=== PATIENT | male | born 1950 | race Caucasian/White ===

== ENCOUNTER 2023-09-15 07:58 | Outpatient (OUT) | payer MEDICARE, OTHER, SELFPAY ==
[2023-09-15 08:09] LABS: Basophils Absolute Auto 0.1 10^3/uL (0.0-0.1); Basophils Percent Auto 0.6 % (0.2-2.0); Eosinophils Absolute Auto 0.2 10^3/uL (0.0-0.7); Eosinophils Percent Auto 2.1 % (0.9-7.0); Hematocrit 44.8 % (42.0-54.0); Hemoglobin 15.4 g/dL (14.0-18.0); Immature Granulocytes Abs Auto 0.01 10^3/uL (0.00-0.03); Immature Granulocytes Pct Auto 0.1 % (0.0-0.5); Lymphocytes Absolute Auto 2.5 10^3/uL (1.2-3.8); Lymphocytes Percent Auto 31.8 % (20.5-60.0); Mean Corpuscular HGB Conc 34.4 g/dL (29.9-35.2); Mean Corpuscular Hemoglobin 30.8 pg (25.9-34.0); Mean Corpuscular Volume 89.6 fL (80.0-94.0); Mean Platelet Volume 8.8 fL (9.5-13.5); Monocytes Absolute Auto 0.7 10^3/uL (0.3-0.8); Monocytes Percent Auto 8.5 % (1.7-12.0); Neutrophils Absolute Auto 4.4 10^3/uL (1.4-6.5); Neutrophils Percent Auto 56.9 % (43.0-75.0); Platelet Count 286 10^3/uL (150-450); Red Cell Distribution Width 12.8 % (11.0-15.0); White Blood Count 7.7 10^3/uL (4.0-11.0)
[2023-09-15 08:53] LABS: Alanine Aminotransferase 28 U/L (16-63); Albumin Globulin Ratio 0.9; Albumin Level 3.5 g/dL (3.4-5.0); Alkaline Phosphatase 80 U/L (46-116); Anion Gap 13.2; Aspartate Amino Transferase 20 U/L (15-37); BUN Creatinine Ratio 15.1; Bilirubin Total 0.6 mg/dL (0.2-1.0); Calcium 8.5 mg/dL (8.5-10.1); Carbon Dioxide 27.9 mmol/L (21.0-32.0); Chloride 104 mmol/L (98-107); Chol HDL Ratio 2.9; Cholesterol 154 mg/dL (<=200); Estimated GFR (African America >60 (>=60); Estimated GFR (Non-African Ame 56 (>=60); Globulin 3.7 g/dL; Glucose 99 mg/dL (74-106); HDL Cholesterol 54 mg/dL (40-60); LDL Cholesterol Calculated 90.8 mg/dL; Potassium 4.1 mmol/L (3.5-5.1); Sodium 141 mmol/L (136-145); Thyroid Stimulating Hormone 1.673 uIU/mL (0.358-3.740); Total Protein 7.2 g/dL (6.4-8.2); Triglycerides 46 mg/dL (<=150); VLDL CHOLESTEROL 9.2 mg/dL
[2023-09-15 09:11] LABS: Prostate Specific Antigen Dx 13.86 ng/mL (<=4.00)
== END 2023-09-15 07:59 | disposition home or self-care (01) ==
LOC: LAB 07:58
PROVIDERS: PCP Internal Medicine; Visit Provider Internal Medicine
DX: R73.01 Impaired fasting glucose (principal); I10 Essential (primary) hypertension; R97.20 Elevated prostate specific antigen [PSA]; Z51.81 Encounter for therapeutic drug level monitoring
CPT/HCPCS: 36415; 80053; 80061; 84153; 84443; 85025

== ENCOUNTER 2023-11-27 10:51 | Outpatient (OUT) | payer MEDICARE, OTHER, SELFPAY ==
[2023-11-27 11:51] LABS: Prostate Specific Antigen Dx 12.27 ng/mL (<=4.00)
== END 2023-11-27 10:52 | disposition home or self-care (01) ==
PROVIDERS: PCP Internal Medicine; Visit Provider Urology
DX: N40.1 Benign prostatic hyperplasia with lower urinary tract symptoms (principal); R97.20 Elevated prostate specific antigen [PSA]; N41.1 Chronic prostatitis
CPT/HCPCS: 36415; 84153

== ENCOUNTER 2024-03-10 06:34 | Outpatient (OUT) | payer MEDICARE, OTHER, SELFPAY ==
--- OUTSIDE RECORDS SUMMARY | 2024-03-10 06:36 | XMS_ITS | CCD ---
Author Organization [facility] Care Team Providers Care Last Ironer Name Role Phone BRIAN TAPIA Unavailable Unavailable ANAYELI GREER Primary Care Physician [phone] MD Brian Tapia Attending Provider DO Zoey Latham Primary Care Provider Zoey Latham Primary Care Unavailable Brian Tapia Attending Unavailable Brian Tapia Admitting Unavailable NOA, DR GREER Admitting Unavailable NOA, DR GREER Attending Unavailable NOA, DR GREER Primary Care Unavailable NOA, DR GREER Consulting Unavailable NOA, DR GREER Admitting Unavailable NOA, DR GREER Attending Unavailable NOA, DR GREER Primary Care Unavailable NOA, DR GREER Consulting Unavailable MARVEL ., DR RICHTER Admitting Unavailable MARVEL ., DR RICHTER Attending Unavailable NOA, DR GREER Primary Care Unavailable MARVEL ., DR RICHTER Consulting Unavailable NOA, DR GREER Admitting Unavailable NOA, DR GREER Attending Unavailable NOA, DR GREER Primary Care Unavailable NOA, DR GREER Consulting Unavailable NOA, ZOEY Henry Referring Unavailable ZOEY LATHAM Attending Zoey Hope DO Unavailable Zoey Latham DO Primary Care Provider [phone] Brian TAPIA Attending Unavailable Brian TAPIA Attending Zoey Pierce Attending Unavailable Medications Current Medications Medication Drug Class(es) Dates Sig (Normalized) Sig (Original) acetaminophen 325 mg / HYDROcodone bitartrate 7.5 mg oral tablet (2 sources) Opioid Agonist Start: 10-29-2022 take 1 tablet by mouth once, then take 1 tablet by mouth every hour [place] 325 mg-7.5 mg oral tablet 1 tab(s), Oral, Once, 1 tab(s), Refill(s) 0, Take 1 hour prior to procedure. Don't drive or operate machinery while taking this medication., [facility]/pharmacy #[id number], 182, cm, 08/01/22 11:50:00 EDT, Height/Length Dosing, 93.2, kg, 08/01/22 11:50:00 EDT, We... Start Date: 10/29/22 Status: Ordered amLODIPine 10 mg oral tablet (2 sources) Dihydropyridine Calcium Channel Osbaldo Start: 12-04-2023 amLODIPine 10 mg Tab Refills(s) 0 Start Date: 12/04/23 Status: Ordered Start: 11-19-2023 take 1 tablet by carl th once daily amLODIPine (Norvasc) 10 MG tablet Indications: Essential (primary) hypertension (CMS/HCC) TAKE 1 TABLET BY MOUTH ONCE EVERY NIGHT 90 tablet 3 11/19/2023 Active aspirin 81 mg oral tablet (6 sources) Platelet Aggregation Inhibitor, Nonsteroidal Anti-inflammatory Drug Start: 03-23-2020 take 81 mg by mouth once daily aspirin 81 mg, Oral, Daily, Refills(s) 0 Start Date: 03/23/20 Status: Ordered aspirin 81 MG EC tablet Take by mouth Daily. 0 Active Maxidex (5 sources) Corticosteroid Start: 10-14-2019 Maxidex Eye-Shahid th, QID, Refill(s) 0 Start Date: 10/14/19 Status: Ordered diclofenac sodium 0.01 mg/mg topical gel (1 source) Nonsteroidal Anti-inflammatory Drug Start: 08-17-2022 diclofenac sodium 1 % gel as directed Externally up to 4 times per day for 14 day(s) 0 08/17/2022 Active hydroCHLOROthiazide 25 mg / triamterene 37.5 mg oral tablet (4 sources) Potassium-sparing Diuretic, Thiazide Diuretic Start: 06-28-2021 hydrochlorothiazi de-triamterene 25 mg-37.5 mg Tab 1 tab(s), Daily, Refill(s) 0 Start Date: 06/28/21 Status: Ordered Metoprolol (2 sources) beta-Adrenergic Osbaldo Start: 12-04-2023 metoprolol Refills(s) 0 Start Date: 12/04/23 Status: Ordered take 1 tablet by mouth once sg y metoprolol succinate XL (Toprol-XL) 25 MG 24 hr tablet Take by mouth Daily. 0 Active simvastatin 40 mg oral tablet (6 sources) HMG-CoA Reductase Inhibitor Start: 08-24-2023 take 1 tablet by mouth once daily simvastatin (Zocor) 40 MG tablet Indications: Pure hypercholesterolemia, unspecified (CMS/HCC) TAKE 1 TABLET BY MOUTH EVERY NIGHT 90 tablet 3 08/24/2023 Active Start: 10-14-2019 simvastatin Or al, Refills(s) 0 Start Date: 10/14/19 Status: Ordered tamsulosin hydrochloride 0.4 mg oral capsule (6 sources) alpha-Adrenergic Osbaldo Start: 08-01-2022 take 1 capsule by mouth every other day Flomax 0.4 mg Cap 0.4 mg = 1 cap(s), Oral, Every other day, # 45 cap(s), Refills(s) 11, Pharmacy: [facility]/pharmacy #[id number], 182, cm, 08/01/22 11:50:00 EDT, Height/Length Dosing, 93.2, kg, 08/01/22 11:50:00 EDT, Weight Dosing Start Date: 08/01/22 Status: Ordered take [address] [facility] every twenty-four hours in the morning tamsulosin (Flomax) 0.4 MG 24 hr capsule Take 1 capsule by mouth in the morning. 0 Active Problems Problem Classification Problem Date Documented Da te Episodic/Chronic Chronic kidney disease (1 source) Chronic kidney disease stage 3A ; Translations: [Stage 3a chronic kidney disease (HCC)] Onset: 09-09-2023 09-09-2023 Chronic Chronic kidney disease (1 source) Chronic kidney disease; Translations: [CHRONIC KIDNEY DISEASE STAGE 3A] Onset: 03-07-2023 Diabetes mellitus without complication (2 sources) Prediabetes; Translations: [Impaired fasting glucose] Onset: 09-08-2022 Episodic Disorders of lipid metabolism (11 sources) Hypercholesterolemi a; Translations: [Pure hypercholesterolemi a, unspecified] Onset: 05-07-2022 04-10-2019 Chronic Essential hypertension (10 sources) Hypertensive disorder; Translations: [Essential (primary) hypertension] Onset: 09-05-2022 04-10-2019 Chronic Hyperplasia of prostate (13 sources) Benign prostatic hypertrophy with outflow obstruction; Translations: [Benign prostatic hyperplasia with lower urinary tract symptoms] Onset: 07-03-2022 Chronic Hypertension with complications and secondary hypertension (1 source) Hypertensive chronic kidney disease with stage 1 through stage 4 chronic kidney disease, or unspecified chronic kidney disease; Translations: [HTN CKD W/STAGE 1-4 CKD/UNS CKD] Onset: 03-07-2023 Chronic Inflammatory conditions of male genital organs (4 sources) Chronic prostatitis; Translations: [Chronic prostatitis] Onset: 12-01-2022 Chronic Other nutritional; endocrine; and metabolic disorders (5 sources) Body mass index 25-29 - overweight 03-09-2020 Episodic Other nutritional; endocrine; and metabolic disorders (1 source) Overweight in adulthood with body mass index of 25 or more but less than 30; Translations: [Body mass index (BMI) 28.0-28.9, adult] Onset: 09-23-2023 09-23-2023 Episodic Other screening for suspected conditions (not mental disorders or infectious disease) (11 sources) Raised prostate specific antigen; Translations: [Elevated prostate specific antigen [PSA]] Onset: 08-01-2022 Episodic Unclassified (1 source) Unknown / UNK(Unknown) Onset: 10-18-2018 Results Test Name Value Interpretation Reference Range Facility Ambulatory Visit Summaryon 0 12-04-2023 Ambulatory Visit Summary AGUS ORTIZ :1950 Visit Date:12/04/2023 Ambulatory Visit Instructions Your Diagnosis Elevated PSA BPH with urinary obstruction Chronic prostatitis Your Care Team Attending Physician - Brian TAPIA MD Primary Care Physician - ANAYELI GREER MD This Is Your Medications List tamsulosin (Flomax 0.4 mg Cap) Contact prescribing physician if questions or concerns amlodipine (amLODIPine 10 mg Tab) aspirin dexamethasone ophthalmic (Maxidex) metoprolol simvastatin Procedures Performed Transrectal biopsy of prostate using ultrasound guidance (11/11/2022), Transrectal biopsy of prostate using ultrasound guidance (04/03/2020), Transurethral water vapor ablation of prostate (10/13/2017), TRUS (transrectal ultrasound) guided cryoablation of prostate (07/08/2011), Hip replacement, Jaw and temporomandibular joint operations. Discharge Vitals Heart Rate (Peripheral) 80 Respiratory Rate 16 Blood Pressure 132/84 Height 183 cm Height 72 in Weight 91 kg Weight 200.2 lb BMI 27.17 What to do next You Need to Schedule the Following Appointments Follow Up with MARVEL ELLIS, LINA Hutchins When: In 1 year Comments: w/ PSA Where: [facility] [address], [place] [address] [phone] Medications What How Much When Instructions Unchanged tamsulosin (Flomax 0.4 mg Cap) 1 Capsules By Mouth Every other day Unchanged amlodipine (amLODIPine 10 mg Tab) Contact prescribing physician if questions or concerns Unchanged aspirin 81 Milligram By Mouth Every day Contact prescribing physician if questions or concerns Unchanged dexamethasone ophthalmic (Maxidex) Both eyes 4 times a day Contact prescribing physician if questions or concerns Unchanged metoprolol Contact prescribing physician if questions or concerns Unchanged simvastatin By Mouth Contact prescribing physician if questions or concerns Allergies No Known Allergies Problems Ongoing - Any problem that you are currently receiving treatment for. BMI 29.0-29.9,adult BPH with urinary obstruction Chronic prostatitis Elevated PSA Hypercholesteremia Hypertension Patient Survey You may receive a survey via text or e-mail asking about your office visit. Please share your experience with us by completing your survey. We appreciate your feedback and thank you for choosing us for your care. Education Materials Prostate Cancer Screening Prostate cancer screening is testing that is done to check for the presence of prostate cancer in men. The prostate gland is a walnut-sized gland that is located below the bladder and in front of the rectum in males. The function of the prostate is to add fluid to semen during ejaculation. Prostate cancer is one of the most common types of cancer in men. Who should have prostate cancer screening? Screening recommendations vary based on age and other risk factors, as well as between the professional organizations who make the recommendations. In general, screening is recommended if: ? You are age 50 to 70 and have an average risk for prostate cancer. You should talk with your health care provider about your need for screening and how often screening should be done. Because most prostate cancers are slow growing and will not cause , screening in this age group is generally reserved for men who have a 10- to 15-year life expectancy. ? You are younger than age 50, and you have these risk factors: ? Having a father, brother, or uncle who has been diagnosed with prostate cancer. The risk is higher if your family member's cancer occurred at an early age or if you have multiple family members with prostate cancer at an early age. ? Being a male who is Black or is of [place] or sub-Saharan descent. In general, screening is not recommended if: ? You are younger than age 40. ? You are between the ages of 40 and 49 and you have no risk factors. ? You are 70 years of age or older. At this age, the risks that screening can cause are greater than the benefits that it may provide. If you are at high risk for prostate cancer, your health care provider may recommend that you have screenings more often or that you start screening at a younger age. How is screening for prostate cancer done? The recommended prostate cancer screening test is a blood test called the prostate-specific antigen (PSA) test. PSA is a protein that is made in the prostate. As you age, your prostate naturally produces more PSA. Abnormally high PSA levels may be caused by: ? Prostate cancer. ? An enlarged prostate that is not caused by cancer (benign prostatic hyperplasia, or BPH). This condition is very common in older men. ? A prostate gland infection (prostatitis) or urinary tract infection. ? Certain medicines such as male hormones (like testosterone) or other medicines that raise testosterone levels. A rectal exam ma (more content not included)... Normal [facility] Patient Educationon 12-04-19 24 Patient Education Oncology Prostate Cancer Screening Prostate cancer screening is testing that is done to check for the presence of prostate cancer in men. The prostate gland is a walnut-sized gland that is located below the bladder and in front of the rectum in males. The function of the prostate is to add fluid to semen during ejaculation. Prostate cancer is one of the most common types of cancer in men. Who should have prostate cancer screening? Screening recommendations vary based on age and other risk factors, as well as between the professional organizations who make the recommendations. In general, screening is recommended if: ? You are age 50 to 70 and have an average risk for prostate cancer. You should talk with your health care provider about your need for screening and how often screening should be done. Because most prostate cancers are slow growing and will not cause , screening in this age group is generally reserved for men who have a 10- to 15-year life expectancy. ? You are younger than age 50, and you have these risk factors: ? Having a father, brother, or uncle who has been diagnosed with prostate cancer. The risk is higher if your family member's cancer occurred at an early age or if you have multiple family members with prostate cancer at an early age. ? Being a male who is Black or is of Sun[place] or sub-Saharan descent. In general, screening is not recommended if: ? You are younger than age 40. ? You are between the ages of 40 and 49 and you have no risk factors. ? You are 70 years of age or older. At this age, the risks that screening can cause are greater than the benefits that it may provide. If you are at high risk for prostate cancer, your health care provider may recommend that you have screenings more often or that you start screening at a younger age. How is screening for prostate cancer done? The recommended prostate cancer screening test is a blood test called the prostate-specific antigen (PSA) test. PSA is a protein that is made in the prostate. As you age, your prostate naturally produces more PSA. Abnormally high PSA levels may be caused by: ? Prostate cancer. ? An enlarged prostate that is not caused by cancer (benign prostatic hyperplasia, or BPH). This condition is very common in older men. ? A prostate gland infection (prostatitis) or urinary tract infection. ? Certain medicines such as male hormones (like testosterone) or other medicines that raise testosterone levels. A rectal exam may be done as part of prostate cancer screening to help provide information about the size of your prostate gland. When a rectal exam is performed, it should be done after the PSA level is drawn to avoid any effect on the results. Depending on the PSA results, you may need more tests, such as: ? A physical exam to check the size of your prostate gland, if not done as part of screening. ? Blood and imaging tests. ? A procedure to remove tissue samples from your prostate gland for testing (biopsy). This is the only way to know for certain if you have prostate cancer. What are the benefits of prostate cancer screening? ? Screening can help to identify cancer at an early stage, before symptoms start and when the cancer can be treated more easily. ? There is a small chance that screening may lower your risk of dying from prostate cancer. The chance is small because prostate cancer is a slow-growing cancer, and most men with prostate cancer from a different cause. What are the risks of prostate cancer screening? The main risk of prostate cancer screening is diagnosing and treating prostate cancer that would never have caused any symptoms or problems. This is called overdiagnosisand overtreatment. PSA screening cannot tell you if your PSA is high due to cancer or a different cause. A prostate biopsy is the only procedure to diagnose prostate cancer. Even the results of a biopsy may not tell you if your cancer needs to be treated. Slow-growing prostate cancer may not need any treatment other than monitoring, so diagnosing and treating it may cause unnecessary stress or other side effects. Questions to ask your health care provider ? When should I start prostate cancer screening? ? What is my risk for prostate cancer? ? How often do I need screening? ? What type of screening tests do I need? ? How do I get my test results? ? What do my results mean? ? Do I need treatment? Where to find more information ? The [place] [employer]: www.cancer.org ? [employer]: www.auanet.org Contact a health care provider if: ? You have difficulty urinating. ? You have pain when you urinate or ejaculate. ? You have blood in your urine or semen. ? You have pain in your back or in the area of your prostate. Summary ? Prostate cancer is a common type of cancer in men. The prostate gland is located below the bladder and in front of the rectum. This gland adds flu (more content not included)... 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 PSA: 11/27/23 is 12.27 Tamsulosin 0.4mg QOD Denies all urinary complaints at this time. Attributes to previous Rezum procedure. History of Present Illness Tests reviewed: reviewed UA, PSA I have reviewed the previous health record information and history for this patient from Dr. Tapia. I have reviewed and verified the staff HPI to be accurate for this encounter. Review of Systems PHQ Score Initial Depression Screen Score: 0 SCORE ROS - Provider Constitutional: denies weight loss, denies hot flashes. Eyes: denies eye problems. Gastrointestinal: denies nausea, denies vomiting. Cardiovascular: denies chest pain or angina. Integumentary: no dryness Musculoskeletal: denies musculoskeletal symptoms. ENMT: denies otolaryngeal symptoms. Respiratory: no shortness of breath. Heme/Lymph: denies easy bleeding tendency, denies easy bruising tendency. Psychiatric: no confusion, no anxiety. Genitourinary: See HPI. Physical Exam Vitals & Measurements HR: 80(Peripheral) RR: 16 BP: 132/84 HT: 72 in HT: 183 cm WT: 91 kg WT: 200.2 lb BMI: 27.17 General Appearance: alert, no distress, well nourished, well developed male. Genitourinary: normal scrotum, normal testes, normal urethra, normal epididymis, normal vas deferens/spermatic cord. Flank Pain: none. Bladder: nonpalpable. Prostate: normal prostate, estimated weight 50 gms, no hard nodule observed. Assessment/Plan 1. Elevated PSA (R97.20: Elevated prostate specific antigen [PSA]) PSA 02/2020 - 17.9 06/19/21 - 10.03 07/03/22 - 12.97 11/27/23 - 12.27 Prostate MRI 09/2018 - PI-RADS 2. Prostate MRI 08/13/22 [facility] [place] - No evidence of prostate malignancy. Prostate volume 99mL. TRUS/bx 01/02/17, 04/03/20, and 11/11/22 - all neg JACOBO today: 50g, benign Discussed PSA level w/ pt, has decreased from prior. Re-discussed negative malignancy workup despite PSA being elevated. Advised pt this is likely due to chronic subclinical prostatitis because of his large prostate. Discussed there are medications that lower the PSA, such as Finasteride, but are only beneficial if having bothersome urinary sxs. -F/u in 1 yr w/ PSA 2. BPH with urinary obstruction (N40.1: Benign prostatic hyperplasia with lower urinary tract symptoms) S/p Rezum 09/2017. UA today negative for blood and infection. Taking Tamsulosin 0.4mg qod. Good stream. Feels he empties completely. Denies any difficulty with voiding. -Cont Tamsulosin wo changes 3. Chronic prostatitis (N41.1: Chronic prostatitis) Asymptomatic. -Cont sx monitoring Follow-up With When Contact Information MARVEL ELLIS, LINA Hutchins In 1 year [facility] [address] [place] [address]- [phone] Additional Instructions: w/ PSA Patient Education Prostate Cancer Screening I, Taryn Casarze, personally scribed for Dr. Tapia on 12/04/2023 09:24:43. . Documentation recorded by the scribe, Taryn Casarez, accurately reflects the services(s) I performed and decisions made by me. Authenticated by Dr. Tapia on 12/04/2023 09:26:27. Problem List/Past Medical History Ongoing BMI 29.0-29.9,adult BPH with urinary obstruction Chronic prostatitis Elevated PSA Hypercholesteremia Hypertension Historical No qualifying data Procedure/Surgical History Transrectal biopsy of prostate using ultrasound guidance (11/11/2022), Transrectal biopsy of prostate using ultrasound guidance (04/03/2020), Transurethral water vapor ablation of prostate (10/13/2017), TRUS (transrectal ultrasound) guided cryoablation of prostate (07/08/2011), Hip replacement, Jaw and temporomandibular joint operations. Medications amLODIPine 10 mg Tab aspirin, 81 mg, Oral, Daily Flomax 0.4 mg Cap, 0.4 mg= 1 cap(s), Oral, Every other day, 11 refills Maxidex, Eye-Both, QID metoprolol simvastatin, Oral Allergies No Known Allergies Social History Alcohol - Denies Alcohol Use, 10/14/2019 Substance Abuse - Denies Substance Abuse, 08/01/2022 Tobacco - Denies Tobacco Use, 10/14/2019 Former smoker, quit more than 30 days ago Tobacco Use:. Never Smokeless Tobacco Use:. Cigarettes, Household tobacco concerns: No. Yes, 12/04/2023 Family History Diabetes mellitus type 2: Father. Immunizations Vaccine Date Status Comments influenza virus vaccine, inactivated 08/01/2023 Recorded influenza virus vaccine, inactivated 08/10/2022 Recorded SARS-CoV-2 (COVID-19) [id number] 08/10/2022 Recorded influenza virus vaccine, inactivated 08/02/2021 Recorded SARS-CoV-2 (COVID-19) mRNA BNT-162b2 vax 08/02/2021 Recorded 2023-12-04: TPV70 SARS-CoV-2 (COVID-19) Ad26 vaccine 02/2021 Recorded unable to give exact dates SARS-CoV-2 (COVID-19) mRNA BNT-162b2 vax 12/21/2020 Recorded 2023-12-04: TPV70 SARS-CoV-2 (COVID-19) mRNA BNT-162b2 vax 11/30 (more content not included)... Normal [facility] Comment on above: Result Comment: Elec tronically Signed By: Brian TAPIA MD\.br\Date and Time Signed: 12/04/23 09:26 EST\.br\Electronically Co-Signed By: Taryn Casarez\.br\Date and Time Co-Signed: 12/04/23 09:24 EST Lab Reportson 11-30-2023 Lab Reports [id number] Normal [facility] MHPT PSA, DIAGNOSTICon 11-27 Interpretation and review of laboratory results Abnormal [facility] PROSTATE SPECIFIC ANTIGEN DX 12.27 ng/mL High NINF - 4.00 ng/mL [facility] 09-16-2023 Consent [id number]#1.00TIFF Normal [facility] Consent [id number]#[id number] Normal [facility] GLYCOHEMOGLOBIN A1Con 2022 ADA RECOMMENDATION SEE BELOW Normal [facility] Comment on above: Result Comment: ADA RECOMMENDED LIMIT 4.0 - 6.0 ADA THERAPEUTIC TARGET < 7.0 ACTION SUGGESTED > 7.0 Performed By: #### A 1C #### [facility] [address] [address] [address] Khari Meadows Glucose [Mass/Vol] 108 mg/dL Normal [facility] Comment on above: Performed By: #### A 1C #### [facility] [address] [address] [address] Khari Meadows HbA1c (Bld) [Mass fraction] 5.4 % Normal 4.5-6.2 [facility] Comment on above: Performed By: #### A 1C #### [facility] [address] [address] [address] Khari Meadows MICROALBUMIN, RAND URon 05-0 mALB <1.3 Normal <=30.0 [facility] Comment on above: Performed By: #### M ALBR #### [facility] [address] [address] [address] Khari Meadows PROF CHEM 8 (BAS METB)on Anion gap [Moles/Vol] 10.9 mmol/L Normal [facility] Comment on above: Performed By: #### B MP #### [facility] [address] [address] [address] Khari Meadows Calcium [Mass/Vol] 9.0 mg/dL Normal 8.5-10.1 [facility] Comment on above: Performed By: #### B MP #### [facility] [address] [place] [address] Dr. Khari Meadows Chloride [Moles/Vol] 105 mmol/L Normal 98-107 [facility] Comment on above: Performed By: #### B MP #### [facility] [address] [address] [address] Khari Meadows CO2 [Moles/Vol] 27.7 mmol/L Normal 21.0-32.0 [facility] Comment on above: Performed By: #### B MP #### [facility] [address] [place] [address] Dr. Khari Meadows Creatinine [Mass/Vol] 1.24 mg/dL Normal 0.70-1.30 [facility] [facility] Comment on above: Performed By: #### B MP #### [facility] [address] [address] [address] Khari Meadows EGFR-AF HAITIAN >60 Normal >=60 [facility] Comment on above: Performed By: #### B MP #### [facility] [address] [place] [address] Dr. Khari Meadows EGFR-NON AF HAITIAN 57 mL/min/1.73m2 Critically low >=60 [facility] Comment on above: Performed By: #### B MP #### [facility] [address] [address] [address] Khari Meadows Glucose [Mass/Vol] 95 mg/dL Normal 74-106 [facility] Comment on above: Performed By: #### B MP #### [facility] [address] [address] [address] Khari Meadows Potassium [Moles/Vol] 3.6 mmol/L Normal 3.5-5.1 [facility] Comment on above: Performed By: #### B MP #### [facility] [address] [place] [address] Dr. Khari Meadows Sodium [Moles/Vol] 140 mmol/L Normal 136-145 [facility] Comment on above: Performed By: #### B MP #### [facility] [address] [place] [address] Dr. Khari Meadows Urea nitrogen [Mass/Vol] 26.0 mg/dL Critically high 7.0-18.0 [facility] Comment on above: Performed By: #### B MP #### [facility] [address] [place] [address] Dr. Khari Meadows Urea nitrogen/Creatinine [Mass ratio] 21.0 mg/mg Normal [facility] Comment on above: Performed By: #### B MP #### [facility] [address] [place] [address] Dr. Khari Meadows UA RANDOMon 03-03-2023 Bilirubin Ql (U) Negative Normal NEGATIVE [facility] Comment on above: Performed By: #### U A #### [facility] [address] [place] [address] Dr. Khari Meadows Clarity (U) CLEAR Normal CLEAR [facility] Comment on above: Performed By: #### U A #### [facility] [address] [place] [address] Dr. Khari Meadows Color (U) LT. YELLOW Normal YELLOW [facility] Comment on above: Performed By: #### U A #### [facility] [address] [place] [address] Dr. Khari Meadows Glucose Ql (U) Negative Normal NEGATIVE [facility] Comment on above: Performed By: #### U A #### [facility] [address] [place] [address] Dr. Khari Meadows Hemoglobin Ql (U) Negative Normal NEGATIVE [facility] Comment on above: Performed By: #### U A #### [facility] [address] [place] [address] Dr. Khari Meadows Ketones Ql (U) Negative Normal NEGATIVE [facility] Comment on above: Performed By: #### U A #### [facility] [address] [place] [address] Dr. Khari Meadows LEUKOCYTES Negative Normal NEGATIVE [facility] Comment on above: Performed By: #### U A #### [facility] [address] [place] [address] Dr. Khari Meadows Nitrite Ql (U) Negative Normal NEGATIVE [facility] Comment on above: Performed By: #### U A #### [facility] [address] [place] [address] Dr. Khari Meadows pH (U) 6.0 [pH] Normal 5-9 [facility] Comment on above: Performed By: #### U A #### [facility] [address] [place] [address] Dr. Khari Meadows SPEC GRAVITY 1.025 Normal 1.005-<=1. 025 [facility] Comment on above: Performed By: #### U A #### [facility] [address] [place] [address] Dr. Khari Meadows UA PROTEIN Negative Normal NEGATIVE/ TRACE [facility] Comment on above: Performed By: #### U A #### [facility] [address] [place] [address] Dr. Khari Meadows Urobilinogen Qn (U) 0.2 {Yaneth'U}/dL Normal 0.2 - 1. 0 [facility] Comment on above: Performed By: #### U A #### [facility] [address] [place] [address] Dr. Khari Meadows LIPID PROFILEon 09-05-2022 CHOL-HDL RATIO NORM SEE BELOW Normal [facility] Comment on above: Result Comment: 3.3 - 4.4 LOW RISK 4.4 - 7.1 AVERAGE RISK 7.1 - 11.0 MODERATE RISK >11.0 HIGH RISK Performed By: #### L IPID, CMP #### [facility] [address] [address] [address] Khari Meadows Cholesterol [Mass/Vol] 156 mg/dL Normal <=200 [facility] Comment on above: Performed By: #### L IPID, CMP #### [facility] [address] [address] [address] Khari Meadows Cholesterol in HDL [Mass/Vol] 45 mg/dL Normal 40-60 [facility] Comment on above: Performed By: #### L IPID, CMP #### [facility] [address] [place] [address] Dr. Khari Meadows Cholesterol in LDL [Mass/Vol] 99.6 mg/dL Normal [facility] Comment on above: Performed By: #### L IPID, CMP #### [facility] [address] [place] [address] Dr. Khari Meadows Cholesterol.total/C holesterol in HDL [Mass ratio] 3.5 {ratio} Normal [facility] Comment on above: Performed By: #### L IPID, CMP #### [facility] [address] [place] [address] Dr. Khari Meadows HDL NORMAL > or = 60 mg/dl - LO W CARDIOVASCULAR RISK <40 mg/dl - HIGH CARDIOVASCULAR RISK Normal [facility] Comment on above: Performed By: #### L IPID, CMP #### [facility] [address] [place] [address] Dr. Khari Meadows LDL CALC NORMAL SEE BELOW Normal [facility] Comment on above: Result Comment: <100 mg/dl OPTIMAL 100 - 129 mg/dl NEAR OR ABOVE OPTIMAL 130 - 159 mg/dl BORDERLINE HIGH 160 - 189 mg/dl HIGH >190 mg/dl VERY HIGH Performed By: #### L IPID, CMP #### [facility] [address] [place] [address] Dr. Khari Meadows Triglyceride [Mass/Vol] 57 mg/dL Normal <=150 [facility] Comment on above: Performed By: #### L IPID, CMP #### [facility] [address] [address] [address] Khari Meadows VLDL CALC 11.4 mg/dL Normal [facility] Comment on above: Performed By: #### L IPID, CMP #### [facility] [address] [address] [address] Khari Meadows PROF 14(COMP METB)on 022 Albumin [Mass/Vol] 3.6 g/dL Normal 3.4-5.0 [facility] Comment on above: Performed By: #### L IPID, CMP #### [facility] [address] [address] [address] Khari Meadows Albumin/Globulin [Mass ratio] 1.0 {ratio} Normal [facility] Comment on above: Performed By: #### L IPID, CMP #### [facility] [address] [place] [address] Dr. Khari Meadows ALP [Catalytic activity/Vol] 73 U/L Normal 46-116 [facility] Comment on above: Performed By: #### L IPID, CMP #### [facility] [address] [place] [address] Dr. Khari Meadows ALT [Catalytic activity/Vol] 30 U/L Normal 16-63 [facility] Comment on above: Performed By: #### L IPID, CMP #### [facility] [address] [address] [address] Khari Meadows Anion gap [Moles/Vol] 9.4 mmol/L Normal [facility] Comment on above: Performed By: #### L IPID, CMP #### [facility] [address] [place] [address] Dr. Khari Meadows AST [Catalytic activity/Vol] 20 U/L Normal 15-37 [facility] Comment on above: Performed By: #### L IPID, CMP #### [facility] [address] [place] [address] Dr. Khari Meadows Bilirubin [Mass/Vol] 0.4 mg/dL Normal 0.2-1.0 [facility] Comment on above: Performed By: #### L IPID, CMP #### [facility] [address] [address] [address] Khari Meadows Calcium [Mass/Vol] 9.1 mg/dL Normal 8.5-10.1 [facility] Comment on above: Performed By: #### L IPID, CMP #### [facility] [address] [address] [address] Khari Meadows Chloride [Moles/Vol] 105 mmol/L Normal 98-107 [facility] Comment on above: Performed By: #### L IPID, CMP #### [facility] [address] [place] [address] Dr. Khari Meadows CO2 [Moles/Vol] 29.9 mmol/L Normal 21.0-32.0 [facility] Comment on above: Performed By: #### L IPID, CMP #### [facility] [address] [place] [address] Dr. Khari Meadows Creatinine [Mass/Vol] 1.27 mg/dL Normal 0.70-1.30 [facility] Comment on above: Performed By: #### L IPID, CMP #### [facility] [address] [place] [address] Dr. Khari Meadows EGFR-AF HAITIAN >60 Normal >=60 [facility] Comment on above: Performed By: #### L IPID, CMP #### [facility] [address] [place] [address] Dr. Khari Meadows EGFR-NON AF HAITIAN 56 mL/min/1.73m2 Critically low >=60 [facility] Comment on above: Performed By: #### L IPID, CMP #### [facility] [address] [place] [address] Dr. Khari Meadows Globulin (S) [Mass/Vol] 3.6 g/dL Normal [facility] Comment on above: Performed By: #### L IPID, CMP #### [facility] [address] [place] [address] Dr. Khari Meadows Glucose [Mass/Vol] 112 mg/dL Critically high 74-106 [facility] Comment on above: Performed By: #### L IPID, CMP #### [facility] [address] [address] [address] Khari Meadows Potassium [Moles/Vol] 5.3 mmol/L Critically high 3.5-5.1 [facility] Comment on above: Performed By: #### L IPID, CMP #### [facility] [address] [place] [address] Dr. Khari Meadows Protein [Mass/Vol] 7.2 g/dL Normal 6.4-8.2 [facility] Comment on above: Performed By: #### L IPID, CMP #### [facility] [address] [place] [address] Dr. Khari Meadows Sodium [Moles/Vol] 139 mmol/L Normal 136-145 [facility] Comment on above: Performed By: #### L IPID, CMP #### [facility] [address] [place] [address] Dr. Khari Meadows Urea nitrogen [Mass/Vol] 30.0 mg/dL Critically high 7.0-18.0 [facility] Comment on above: Performed By: #### L IPID, CMP #### [facility] [address] [place] [address] Dr. Khari Meadows Urea nitrogen/Creatinine [Mass ratio] 23.6 mg/mg Normal [facility] Comment on above: Performed By: #### L IPID, CMP #### [facility] [address] [place] [address] Dr. Khari Meadows XR Ankle Complete Left*on XR Ankle Complete Left* CLINICAL HISTORY: pain FINDINGS: No significant malleolar soft tissue swelling is present. No cortical, subchondral fracture or dislocation is seen. Talar dome and talar kuhn are intact. Normal tibiotalar and tibiofibular relationships are present. Bone mineralization is normal for this age. IMPRESSION: Negative ankle. Report reported and signed by RICHARD LARA on 08/17/2022 1407 Normal [facility] [employer] XR Foot Complete Left*on XR Foot Complete Left* COMPARISON: None TECHNIQUE: 3 views LEFT FOOT FINDINGS: There are no lytic or sclerotic bone lesions. There is no acute fracture or subluxation. The joint spaces are preserved.. The soft tissues are within normal limits. There are no radiopaque foreign bodies in the soft tissues. IMPRESSION: There are no acute osseous injuries. Report reported and signed by RICHARD LARA on 08/17/2022 1408 Normal [facility] MR prostate wo/w conon 08-14 MR prostate wo/w con [facility] Main [place] [address] [place] [address] MRI Report Signed Patient: Agus Ortiz MR#: [id number] 24 : 1950 Acct:[id number] Age/Sex: 71 / M ADM Date: 08/13/22 Loc: MR Room: Type: [facility] Attending Dr: Brian Tapia MD Copies to: Brian Tapia MD Ordering Provider: Brian Tapia MD Date of Service: 08/13/22 MR/MR prostate wo/w con: ELEVATED PSA EXAMINATION: MR prostate wo/w con HISTORY: Elevated PSA. Negative biopsy. COMPARISON: NONE TECHNIQUE: Multiparametric imaging of the prostate gland was performed with IV contrast. FINDINGS: Suboptimal imaging due to motion. Prostate Dimensions: 6.2 x 5.6 x 5.5 cm. Prostate Volume: 99 mL Peripheral Zone: Heterogenous inT2 signal suggestive of prior prostatitis. No suspicious T2 or ADC map abnormality is identified to suggest prostate malignancy. Central/Transitional Zone: BPH changes. Seminal Vesicles: Unremarkable Neurovascular bundles: Unremarkable. Lymphadenopathy: No evidence of lymphadenopathy. Bladder: No focal lesion. Bowel: The visualized bowel is without acute abnormality. Peritoneal Cavity: No free fluid. Bones: No suspicious bony lesion. Blooming artifact is seen from the patient's left hip hardware. MR/MR prostate wo/w con IMPRESSION: Suboptimal evaluation due to motion. No definitive evidence of prostate malignancy is seen. BPH changes. Impression dictated by: King Rg Jr., D.O.08/14/2022 9:33 AM Dictation Location: [facility]12 Transcribed By: [facility] 08/14/22 0933 Dictated By: King Rg Jr, DO 08/14/2227 Signed By: 08/14/2233 Normal [facility] Creatinine (Bld) [Mass/Vol]O rdered By: Brian Tapia on 08-13-2022 Creatinine [Mass/Vol] 1.3 mg/dL 0.6-1.3 [facility] Comment on above: ER/ESD physician is notified/shown all ISTAT results.Critical values may be confirmed by laboratory testing ifdeemed necessary by ER attending doctor. ISTAT XRay CREon 08-13-2022 Creatinine [Mass/Vol] 1.3 mg/dL Normal 0.6-1.3 [facility] Comment on above: Result Comment: ER/E SD physician is notified/shown all ISTAT results. Critical values may be confirmed by laboratory testing if deemed necessary by ER attending doctor. Performed By: #### I SCRE #### [facility] [address] [place] [address] Point of Care testing , ISTAT GFR ( > 60 Normal [facility] Comment on above: Result Comment: GFR estimated reference range: According to KDOQI guidelines, <60 ml/min/1.73m2 is sufficient to diagnose a patient with chronic kidney disease. PERFORMED BY: [place] [address] PATHOLOGIST ALMOND HULLER MELVIN DANG M.D. Performed By: #### I SCRE #### [facility] [address] [place] [address] Point of Care testing , ISTAT GFR (Non- Am 54 Normal [facility] Comment on above: Performed By: #### I SCRE #### [facility] [address] [place] [address] Point of Care testing , No Panel InformationOrdered By: Brian Tapia on 08-13-2022 POC Estimated GFR > 60 [facility] Comment on above: GFR estimated refere nce range: According to KDOQI guidelines, <60 ml/min/1.73m2 is sufficient to diagnose a patient with chronic kidney disease. POC Estimated GFR Non- Amer 54 [facility] GLYCOHEMOGLOBIN A1Con 2021 ADA RECOMMENDATION SEE BELOW Normal [facility] Comment on above: Result Comment: ADA RECOMMENDED LIMIT 4.0 - 6.0 ADA THERAPEUTIC TARGET < 7.0 ACTION SUGGESTED > 7.0 Performed By: #### A 1C #### [facility] [address] [place] [address] Dr. Khari Meadows Glucose [Mass/Vol] 111 mg/dL Normal [facility] Comment on above: Performed By: #### A 1C #### [facility] [address] [place] [address] Dr. Khari Meadows HbA1c (Bld) [Mass fraction] 5.5 % Normal 4.5-6.2 [facility] Comment on above: Performed By: #### A 1C #### [facility] [address] [place] [address] Dr. Khari Meadows MICROALBUMIN, RAND URon 07- mALB <1.3 Normal <=30.0 [facility] Comment on above: Performed By: #### M ALBR #### [facility] [address] [place] [address] Dr. Khari Meadows PROF CHEM 8 (BAS METB)on Anion gap [Moles/Vol] 10.1 mmol/L Normal [facility] Comment on above: Performed By: #### B MP #### [facility] [address] [place] [address] Dr. Khari Meadows Calcium [Mass/Vol] 9.2 mg/dL Normal 8.5-10.1 [facility] Comment on above: Performed By: #### B MP #### [facility] [address] [place] [address] Dr. Khari Meadows Chloride [Moles/Vol] 104 mmol/L Normal 98-107 [facility] Comment on above: Performed By: #### B MP #### [facility] [address] [place] [address] Dr. Khari Meadows CO2 [Moles/Vol] 27.6 mmol/L Normal 21.0-32.0 [facility] Comment on above: Performed By: #### B MP #### [facility] [address] [address] [address] Khari Meadows Creatinine [Mass/Vol] 1.47 mg/dL Critically high 0.70-1.30 [facility] Comment on above: Performed By: #### B MP #### [facility] [address] [address] [address] Khari Meadows EGFR-AF HAITIAN 57 mL/min/1.73m2 Critically low >=60 [facility] Comment on above: Performed By: #### B MP #### [facility] [address] [address] [address] Khari Meadows EGFR-NON AF HAITIAN 47 mL/min/1.73m2 Critically low >=60 [facility] Comment on above: Performed By: #### B MP #### [facility] [address] [address] [address] Khari Meadows Glucose [Mass/Vol] 105 mg/dL Normal 74-106 [facility] Comment on above: Performed By: #### B MP #### [facility] [address] [address] [address] Khari Meadows Potassium [Moles/Vol] 3.7 mmol/L Normal 3.5-5.1 [facility] Comment on above: Performed By: #### B MP #### [facility] [address] [address] [address] Khari Meadows Sodium [Moles/Vol] 138 mmol/L Normal 136-145 [facility] Comment on above: Performed By: #### B MP #### [facility] [address] [address] [address] Khari Meadows Urea nitrogen [Mass/Vol] 34.0 mg/dL Critically high 7.0-18.0 [facility] Comment on above: Performed By: #### B MP #### [facility] [address] [address] [address] Khari Meadows Urea nitrogen/Creatinine [Mass ratio] 23.1 mg/mg Normal [facility] Comment on above: Performed By: #### B MP #### [facility] [address] [address] [address] Kh[facility] Meadows [facility] HNO ID: [id number] thor: Darell Guevara (Rt): (none)Author Type: TechnicianType: Allied HealthFiled: 10/18/2018 2:01 PMNote Text: Radiology Service Progress NotePATIENT NAME: Agus YooN: [id number] OF SERVICE: October 18, 2018TIME: 1:58 PMPATIENT IDENTITY VERIFICATION COMPLETED USING TWO (2) METHODS: Patientconfirmed name verbally and Date of .PATIENT GENDER DATA: MalePATIENT RELEVANT IMPLANT DATA REVIEWED: YesCONTRAST INDUCED NEPHROPATHY RISK FACTORS: Patient age > 60 yearsCREATININE:Creatinine (POCT)Date Value Ref Range Fznssd8610/18/2018 1.40 (A) 0.58 - 1.22 mg/dL Final eGFR-All Other Races (POCT)Date Value Ref Range [id number]/18/2018 50 mL/min/1.73 m2 Final eGFR- (POCT)Date Value Ref Range Bmrhtj5010/18/2018 >60 mL/min/1.73 m2 Final P.O.C.T. RESULTS: POC done: Yes, See Lab Tab October 18, 2018RADIOLOGIST NOTIFIED?: NoALLERGIES: Reviewed and unchangedCONTRAST ALLERGY: NO.PERIPHERAL IV ACCESS: Ambulatory: IV type: Existing peripheral IVutilized, Site assessment: Clean,Dry and Intact, Site dispositionDiscontinuedRADIOLO GY DEPARTMENT: MR; Exam(s) Completed: Body: ProstateSIGNED BY: Sandip Guevara 2017 1:58 PM [facility] MRI PROSTATE WO/W IVCONon Protein mass conc * * *Final Report* * *DATE OF EXAM: Oct 18 2018 2:47PM [facility] 0751 - MRI PROSTATE WO/W IVCON / REASON: elevated PSA R97.20 * * * * Physician Interpretation * * * * EXAMINATION: MRI PELVIS WITHOUT AND WITH CONTRAST (MULTIPARAMETRIC PROSTATE MRI): ...CLINICAL HISTORY: 68-year-old man elevated PSA, being evaluated for prostate cancer.Previous biopsy: NAPSA: 11.65 ng/mL (08/13/2018)Prior therapy: None.TECHNIQUE: Multiparametric MRI of the prostate and pelvis performed on a 3T (Siemens 3T TrioTim) MR system utilizing a torso phased array coil.Sequences obtained:Sagittal, axial and coronal high resolution T2-WI with small [id number];Axial diffusion weighted images with multiple B-values and creation of ADC-maps;Dynamic contrast enhanced T1-weighted images through the prostate were also obtained before, during and after the administration of intravenous gadolinium. Subsequently, larger field of view 3D T1 weighted axial images were obtained through the pelvis.Prostate dimension, volume and pharmacokinetics were obtained using a semi-automated software (Apptera).M: MRPro_2Contrast: IV administration of 20 ml of DotaremCOMPARISON: NoneRESULT: Suboptimal post contrast images.Prostate:Dimensions: 6.2 x 5.3 x 5.5 cm corresponding to a volume of approximately 85 cc.Peripheral zone: No focal abnormalities with imaging features concerning for prostate cancer.PI-RADS score 2Transition zone: There is transition zone hypertrophy, without focal abnormalities suspicious for clinically significant disease.PI-RADS score 2Central zone: The central zone is not well seen.Neurovascular bundle: Unremarkable.Seminal vesicles: Unremarkable.Adjacent Organ Involvement: No urinary bladder or rectal invasion.Lymphadenopathy: NoneOther Findings: Susceptibility artifact from left hip arthroplasty.IMPRESSION:PI-RAD S 2: CLINICALLY SIGNIFICANT PROSTATE CANCER IS UNLIKELY.BENIGN PROSTATIC HYPERTROPHY. Numbe r of targets created for MR/US fusion biopsy:Peripheral zone: 0Transition zone: 0Central zone: 0Targets were numbered in order of level of suspicion for clinically significant prostate cancer ([place] score 3 + 4 or higher).PI-RADS assessment categories:PI-RADS 1: Clinically significant cancer is highly unlikelyPI-RADS 2: Clinically significant cancer is unlikelyPI-RADS 3: Clinically significant cancer is equivocalPI-RADS 4: Clinically significant cancer is likelyPI-RADS 5: Clinically significant cancer is highly likelyTranscriptionist: WINSTON Transcribe Date/Time: Oct 18 2018 2:56PDictated by : YAN GARZA MDThisteffen examination was interpreted and the report reviewed and electronically signed by: WESLEY VALERA MD on Oct 18 2018 5:14PM [id number] [facility] NURSING PROGon 10-18-2018 Protein mass conc HNO ID: [id number] thor: Aundrea (Rn) Camacho, RNService: RadiologyAuthor Type: Registered NurseType: Nursing Progress NoteFiled: 10/18/2018 12:57 PMNote Text: Radiology Service Progress NotePATIENT NAME: Agus YooN: [id number] OF SERVICE: October 18, 2018TIME: 12:56 PMPATIENT WEIGHT: 210 LBSPATIENT IDENTITY VERIFICATION COMPLETED USING TWO (2) METHODS: Patientconfirmed name verbally and ID band matches..PATIENT GENDER DATA: MaleCONTRAST INDUCED NEPHROPATHY RISK FACTORS: Patient age > 60 yearsCREATININE: No results found for: CREAT, EGFROTH, EGFRAAP.O.C.T. RESULTS: POC done: Yes, See Lab Tab October 18, 2018TREATMENT: No Hydration needed.ALLERGIES: Reviewed and unchangedCONTRAST ALLERGY: NO.IV SITE: Ambulatory: A peripheral IV was started in the Left antecubitalsite with a Angio cath: 22 gauge.diffusicIV SITE APPEARANCE: Clean,Dry and IntactSIGNED BY: [facility]h [facility] 2017 12:56 PM [facility] Vital Signs Date Time Vital Sign Value Performing Clinician Portia panchal 12-04-2023 08:29-0500 Blood Pressure Location Brian TAPIA [facility] 12-04-2023 08:29-0500 Diastolic blood pressure 84 mm[Hg] Brian TAPIA [facility] 12-04-2023 08:29-0500 Heart rate 80 /min Brian TAPIA [facility] 12-04-2023 08:29-0500 Respiratory rate 16 /min Brian TAPIA [facility] 12-04-2023 08:29-0500 Systolic blood pressure 132 mm[Hg] Brian TAPIA [facility] 08-01-2022 11:43-0400 Blood Pressure Location Brian MARVEL [facility] 08-01-2022 11:43-0400 Diastolic blood pressure 84 mm[Hg] Brian TAPIA [facility] 08-01-2022 11:43-0400 Heart rate 60 /min Brian TAPIA [facility] 08-01-2022 11:43-0400 Respiratory rate 18 /min Brian TAPIA [facility] 08-01-2022 11:43-0400 Systolic blood pressure 175 mm[Hg] Brian TAPIA [facility] Encounters Encounter Date Encounter Type Care Provider Facility Start: 12-09-2024 ambulatory Brian Johnsoni ty:[facility] Start: 12-04-2023 End: 12-05-2023 ambulatory Brian TAPIA Facility:[facility] Start: 12-04-2023 End: 12-04-2023 Patient encounter procedure Brian TAPIA [facility] Start: 11-27-2023 Clinisync Result Encounter Generic External Data Provider [facility] Unsolicited Start: 11-27-2023 Clinisync Result Encounter Generic External Data Provider [facility] Unsolicited Start: 09-23-2023 End: 09-23-2023 ambulatory ZOEY LATHAM Not Available Start: 09-16-2023 End: 09-17-2023 ambulatory Zoey LOPEZ Facility:[facility] Start: 03-03-2023 End: 03-04-[address] ZOEY LATHAM Facility:[facility] Start: 12-01-2022 End: 12-01-2022 Patient encounter procedure Brian TAPIA [facility] Start: 11-11-2022 End: 11-11-2022 Patient encounter procedure Brian TAPIA [facility] Start: 11-04-2022 End: 11-12-2022 Pre-admission assessment Brian TAPIA [facility] Start: 09-05-2022 End: 09-06-[address] ZOEY LATHAM Facility:[facility] Start: 08-13-2022 End: 08-13-2022 ambulatory Zoey Latham Facility:[facility] Start: 08-13-2022 End: 08-13-2022 ambulatory DO Zoey Latham Work Phone: [facility] Work Phone: Start: 08-13-2022 End: 08-13-2022 Patient encounter procedure DO Zoey Latham Work Phone: [facility] [place] Start: 08-01-2022 End: 08-01-2022 Patient encounter procedure Brian TAPIA [facility] Start: 07-03-2022 End: 07-04-[address] BRIAN TAPIA . Facility:[facility] Start: 05-06-2022 End: 05-07-[address] ZOEY LATHAM Facility:[facility] Start: 10-18-2018 Patient encounter procedure BRIAN TAPIA [facility] Procedures Date Procedure Procedure Detail Performing Clinician Start: 11-27-2023 MHPT PSA, DIAGNOSTIC Ge CSDNic External Data Provider Start: 11-11-2022 Transrectal biopsy o f prostate using ultrasound guidance Brian TAPIA Start: 07-03-[address] TEDDY LATHAM Comment on above: Performed By: #### P SAD #### [facility] [address] [place] [address] Dr. Khari Meadows Start: 04-03-2020 Transrectal biopsy o f prostate using ultrasound guidance Brian TAPIA Start: 10-13-2017 Transurethral water vapor ablation of prostate Brian TAPIA Start: 07-08-2011 Ultrasonography guid ed transrectal cryoablation of prostate Brian TAPIA Comment on above: TRUS/BX * 09/09/2011 Jaw and temporomandi bular joint operations Brian TAPIA Prosthetic arthropla sty of the hip Brian TAPIA Comment on above: Left side Plan of Treatment Date Care Activity Detail Author Start: 11-19-2024 Screening for malignant neoplasm of colon [facility] Start: 03-16-2024 End: 03-16-2024 Patient encounter procedure 03/16/2024 9:15 AM EDT Office Visit [facility] [address] [place] [id number] Zoey Latham, DO [address] [place] [address] [facility] Start: 08-13-2022 MR Prostate WO and W contrast IV [facility] Start: 08-13-2022 MR prostate wo/w con MR prostate wo/w con [facility] Start: 08-17-2020 Pneumococcal Vaccine: 65+ Years (2 - PCV) Pneumococcal Vaccine: 65+ Years (2 - PCV) [facility] Start: 1950 Screening for malignant neoplasm of colon [facility] Immunizations Immunization Date Immunization Notes Care Provider Fa cility 08-01-2023 influenza virus vacc ine, unspecified formulation Brian TAPIA [facility] 08-01-2023 Influenza, Seasonal, Quadrivalent, Adjuvanted Generic Provider [facility] 08-01-2023 SARS-COV-2 (COVID-19 ) vaccine, mRNA, spike protein, LNP, PF, prema-sucrose, 30 mcg/0.3 mL Generic Provider [facility] 08-10-2022 influenza virus vacc ine, unspecified formulation Brian TAPIA [facility] 08-10-2022 Influenza, High-dose Seasonal, Quadrivalent, Preservative Free Generic Provider [facility] 08-10-2022 SARS-COV-2 (COVID-19 ) vaccine, mRNA, spike protein, LNP, bivalent, preservative free, 30 mcg/0.3 mL dose, prema-sucrose formulation Generic Provider [facility] 08-02-2021 influenza virus vacc ine, unspecified formulation Brian TAPIA [facility] 08-02-2021 Influenza, High-dose Seasonal, Quadrivalent, Preservative Free Generic Provider [facility] 08-02-2021 SARS-CoV-2 (COVID-19 ) mRNA BNT-162b2 vax Brian TAPIA [facility] Comment on above: Result Comment: 2023: TPV70 02-23-2021 SARS-CoV-2 (COVID-19 ) Ad26 vaccine, recombinant Brian TAPIA [facility] Comment on above: Result Comment: unab le to give exact dates 12-21-2020 SARS-CoV-2 (COVID-19 ) mRNA BNT-162b2 vax Brian TAPIA [facility] Comment on above: Result Comment: 2023: TPV70 11-30-2020 SARS-CoV-2 (COVID-19 ) mRNA BNT-162b2 vax Brian TAPIA [facility] Comment on above: Result Comment: 2023: TPV70 07-24-2020 influenza virus vacc ine, unspecified formulation Brian TAPIA [facility] 07-24-2020 Influenza, Seasonal, Quadrivalent, Adjuvanted Generic Provider [facility] 08-17-2019 influenza virus vacc ine, unspecified formulation Brian TAPIA [facility] 08-17-2019 pneumococcal polysaccharide vaccine, 23 valent Generic Provider [facility] 10-01-2018 zoster vaccine recombinant Generic Provider [facility] 07-09-2018 influenza virus vacc ine, unspecified formulation Briangrady TAPIA [facility] 07-09-2018 zoster vaccine recombinant Generic Provider [facility] 07-24-2017 influenza virus vacc ine, unspecified formulation Brian TAPIA [facility] 03-04-2013 zoster vaccine, live Generic Provide r [facility] Payers Date Payer Category Payer Private Health Insurance [employer] [id number] 2022-Present [address] [place] [address] [id number] 2022 Self-pay 2022 Unknown [id number] 2020 Medicare [id number] 2015 Medicare MEDICARE MEDICAR E PART B [id number] 2015-Present [address] [address] [place] [address] Medicare [id number] 1959 Medicare [id number] 1959 Private Health Insurance [id number] 1949 Unknown [id number] 1949 Unknown [id number] 1949 Unknown [id number] 1949 Unknown [id number] 1949 Unknown [id number] 1949 Unknown [id number] 1950 Unknown [id number] Medicare Medicare [id number] Unknown [employer] [id number] Unknown [id number] Social History Date Type Detail Facility Start: 08-01-2022 End: 12-04-2023 Tobacco smoking status Ex-smoker (finding) [facility] Comment on above: Quit 40 + years ago Start: 09-23-2023 [facility] Assigned At Male [facility] Start: 1950 Sex Assigned At Male F [facility] Start: 09-12-2023 Tobacco smoking stat us PRIS Never smoked tobacco [facility] Start: 09-12-2023 Tobacco use and exposure Smokeless tobacco non-user [facility] Start: 09-23-2023 Alcohol intake Lifetime non-d alex (finding) [facility] Start: 09-23-2023 History of Social function [facility] Start: 09-12-2023 Alcohol Comment caffeine: 1-2 cups per day hot chocolate [facility] Start: 1950 Sex Assigned At Not on file N [facility] Tobacco smoking status Never [facility] Comment on above: Quit 40 + years ago Functional Status Date Assessment Result Facility 12-04-2023 Functional Status N/A [facility] 08-01-2022 Functional Status N/A [facility] Clinical Notes 08-01-2022 to 12-04-2023 Note Date & Type Note Facility 12-04-2023 Hospital Discharge instructions Patient Education 12/04/2023 09:18:08 Prostate Cancer Screening Prostate Cancer Screening Prostate cancer screening is testing that is done to check for the presence of prostate cancer in men. The prostate gland is a walnut-sized gland that is located below the bladder and in front of the rectum in males. The function of the prostate is to add fluid to semen during ejaculation. Prostate cancer is one of the most common types of cancer in men. Who should have prostate cancer screening? Screening recommendations vary based on age and other risk factors, as well as between the professional organizations who make the recommendations. In general, screening is recommended if: You are age 50 to 70 and have an average risk for prostate cancer. You should talk with your health care provider about your need for screening and how often screening should be done. Because most prostate cancers are slow growing and will not cause , screening in this age group is generally reserved for men who have a 10- to 15-year life expectancy. You are younger than age 50, and you have these risk factors: ?Having a father, brother, or uncle who has been diagnosed with prostate cancer. The risk is higher if your family member's cancer occurred at an early age or if you have multiple family members with prostate cancer at an early age. ?Being a male who is Black or is of [place] or sub-Saharan descent. In general, screening is not recommended if: You are younger than age 40. You are between the ages of 40 and 49 and you have no risk factors. You are 70 years of age or older. At this age, the risks that screening can cause are greater than the benefits that it may provide. If you are at high risk for prostate cancer, your health care provider may recommend that you have screenings more often or that you start screening at a younger age. How is screening for prostate cancer done? The recommended prostate cancer screening test is a blood test called the prostate-specific antigen (PSA) test. PSA is a protein that is made in the prostate. As you age, your prostate naturally produces more PSA. Abnormally high PSA levels may be caused by: Prostate cancer. An enlarged prostate that is not caused by cancer (benign prostatic hyperplasia, or BPH). This condition is very common in older men. A prostate gland infection (prostatitis) or urinary tract infection. Certain medicines such as male hormones (like testosterone) or other medicines that raise testosterone levels. A rectal exam may be done as part of prostate cancer screening to help provide information about the size of your prostate gland. When a rectal exam is performed, it should be done after the PSA level is drawn to avoid any effect on the results. Depending on the PSA results, you may need more tests, such as: A physical exam to check the size of your prostate gland, if not done as part of screening. Blood and imaging tests. A procedure to remove tissue samples from your prostate gland for testing (biopsy). This is the only way to know for certain if you have prostate cancer. What are the benefits of prostate cancer screening? Screening can help to identify cancer at an early stage, before symptoms start and when the cancer can be treated more easily. There is a small chance that screening may lower your risk of dying from prostate cancer. The chance is small because prostate cancer is a slow-growing cancer, and most men with prostate cancer from a different cause. What are the risks of prostate cancer screening? The main risk of prostate cancer screening is diagnosing and treating prostate cancer that would never have caused any symptoms or problems. This is called overdiagnosisand overtreatment. PSA screening cannot tell you if your PSA is high due to cancer or a different cause. A prostate biopsy is the only procedure to diagnose prostate cancer. Even the results of a biopsy may not tell you if your cancer needs to be treated. Slow-growing prostate cancer may not need any treatment other than monitoring, so diagnosing and treating it may cause unnecessary stress or other side effects. Questions to ask your health care provider When should I start prostate cancer screening? What is my risk for prostate cancer? How often do I need screening? What type of screening tests do I need? How do I get my test results? What do my results mean? Do I need treatment? Where to find more information The [place] [employer]: www.cancer.org [place] [employer]: www.auanet.org Contact a health care provider if: You have difficulty urinating. You have pain when you urinate or ejaculate. You have blood in your urine or semen. You have pain in your back or in the area of your prostate. Summary Prostate cancer is a common type of cancer in men. The prostate gland is located below the bladder and in front of the rectum. This gland adds fluid to semen during ejaculation. Prostate cancer screening may identify cancer at an early stage, when the cancer can be treated more easily and is less likely to have spread to other areas of the body. The prostate-specific antigen (PSA) test is the recommended screening test for prostate cancer, but it has associated risks. Discuss the risks and benefits of prostate cancer screening with your health care provider. If you are age 70 or older, the risks that screening can cause are greater than the benefits that it may provide. This information is not intended to replace advice given to you by your health care provider. Make sure you discuss any questions you have with your health care provider. Document Revised: 04/07/2022 Document Reviewed: 04/07/2022 Home Delivery Service (HDS) Patient Education 2022 [employer]. Follow Up Care 12/01/2022 12:39:52 With:MARVEL ELLIS, Brian Cartagena, URL Address: [facility] [address] [place] [address] [place] [phone] When:Within 1 Year(s) Comments:w/ PSA [facility] 12-01-2022 Hospital Discharge instructions Patient Education 12/01/2022 08:29:34 Prostate Cancer Screening Prostate Cancer Screening The prostate is a walnut-sized gland that is located below the bladder and in front of the rectum in males. The function of the prostate (prostate gland) is to add fluid to semen during ejaculation. Prostate cancer is the second most common type of cancer in men. A screening test for cancer is a test that is done before cancer symptoms start. Screening can help to identify cancer at an early stage, when the cancer can be treated more easily. The recommended prostate cancer screening test is a blood test called the prostate-specific antigen (PSA) test. PSA is a protein that is made in the prostate. As you age, your prostate naturally produces more PSA. Abnormally high PSA levels may be caused by: Prostate cancer. An enlarged prostate that is not caused by cancer (benign prostatic hyperplasia, BPH). This condition is very common in older men. A prostate gland infection (prostatitis). Medicines to assist with hair growth, such as finasteride. Depending on the PSA results, you may need more tests, such as: A physical exam to check the size of your prostate gland. Blood and imaging tests. A procedure to remove tissue samples from your prostate gland for testing (biopsy). Who should have screening? Screening recommendations vary based on age. If you are younger than age 40, screening is not recommended. If you are age 40 54 and you have no risk factors, screening is not recommended. If you are younger than age 55, ask your health care provider if you need screening if you have one of these risk factors: ?Being of -[place] descent. ?Having a family history of prostate cancer. If you are age 55 69, talk with your health care provider about your need for screening and how often screening should be done. If you are older than age 70, screening is not recommended. This is because the risks that screening can cause are greater than the benefits that it may provide (risks outweigh the benefits). If you are at high risk for prostate cancer, your health care provider may recommend that you have screenings more often or start screening at a younger age. You may be at high risk if you: Are older than age 55. Are -[place]. Have a father, brother, or uncle who has been diagnosed with prostate cancer. The risk may be higher if your family member's cancer occurred at an early age. What are the benefits of screening? There is a small chance that screening may lower your risk of dying from prostate cancer. The chance is small because prostate cancer is typically a slow-growing cancer, and most men with prostate cancer from a different cause. What are the risks of screening? The main risk of prostate cancer screening is diagnosing and treating prostate cancer that would never have caused any symptoms or problems (overdiagnosis and overtreatment). PSA screening cannot tell you if your PSA is high due to cancer or a different cause. A prostate biopsy is the only procedure to diagnose prostate cancer. Even the results of a biopsy may not tell you if your cancer needs to be treated. Slow-growing prostate cancer may not need any treatment other than monitoring, so diagnosing and treating it may cause unnecessary stress or other side effects. A prostate biopsy may also cause: Infection or fever. A false negative. This is a result that shows that you do not have prostate cancer when you actually do have prostate cancer. Questions to ask your health care provider When should I start prostate cancer screening? What is my risk for prostate cancer? How often do I need screening? What type of screening tests do I need? How do I get my test results? What do my results mean? Do I need treatment? Contact a health care provider if: You have difficulty urinating. You have pain when you urinate or ejaculate. You have blood in your urine or semen. You have pain in your back or in the area of your prostate. You have trouble getting or maintaining an erection (erectile dysfunction, ED). Summary Prostate cancer is a common type of cancer in men. The prostate (prostate gland) is located below the bladder and in front of the rectum. This gland adds fluid to semen during ejaculation. Prostate cancer screening may identify cancer at an early stage, when the cancer can be treated more easily. The prostate-specific antigen (PSA) test is the recommended screening test for prostate cancer. Discuss the risks and benefits of prostate cancer screening with your health care provider. If you are age 70 or older, screening is likely to lead to more risks than benefits (risks outweigh the benefits). This information is not intended to replace advice given to you by your health care provider. Make sure you discuss any questions you have with your health care provider. Document Released: 07/23/2018 Document Revised: 09/24/2018 Document Reviewed: 07/23/2018 Home Delivery Service (HDS) Patient Education 2020 [employer]. Follow Up Care 10/29/2022 15:01:27 With:MARVEL ELLIS, Brian Cartagena, URL Address: [facility] [address] [place] [phone] When:12/01/2023 Comments:PSA [facility]ry 11-11-2022 Hospital Discharge instructions Patient Education 11/11/2022 10:31:02 [facility] - Transrectal Ultrasound of the Prostate with US guided biopsy Discharge Instructions (CUSTOM) Transrectal Ultrasound of the Prostate with US guided biopsy Even though there are no visible incisions, multiple prostate biopsies have been taken through the rectum and you need to follow some instructions to minimize the risks of bleeding. You may see some blood in your urine and stool for up to 1 week (and blood in the semen for several months) Diet -You may resume your normal diet, but you may want to avoid alcohol, carbonated drinks, caffeine, and spicy foods, which may increase the irritation from the surgery. -Drink plenty of water to keep the urine clear. Activity -You should limit any physical activity for about 48 hours -No heavy lifting or straining (10 pound limit) -No driving a car and limit long car rides for 2 days -No strenuous exercise -No sexual intercourse until this is discussed with your doctor Bowels -Try to keep your bowel movements soft to minimize straining to have a bowel movement. -You may use a stool softener or over the counter laxative if needed -Difficult bowel movement may lead to straining and bleeding from the prostate Medications -You may resume your home medications unless instructed otherwise -Hold aspirin, ibuprofen, Coumadin (warfarin) and other blood thinners for about two days or until there is no active bleeding unless otherwise instructed -Finish the antibiotic which you have already started Things to watch for which would require an Emergency Room visit or call 911: (this is not a complete list) -Persistent or heavy bleeding or blood clots from the rectum or in the urine -Inability to urinate -Fever over 101.5 degrees Fahrenheit, with or without chills -Severe drug reactions with itching, hives or rash -Tenderness or swelling of the calves, chest pain, or shortness of breath Please call the office to arrange for your post-operative appointment in 1-2 weeks [phone] or [phone] Follow Up Care 10/29/2022 14:59:58 With:Brian TAPIA Address: [facility] [address], [place] [address]- Business (1) When:11/25/2022 10:30:48 [facility] 08-01-2022 Hospital Discharge instructions Patient Education 08/01/2022 12:24:45 Prostate Cancer Screening Prostate Cancer Screening The prostate is a walnut-sized gland that is located below the bladder and in front of the rectum in males. The function of the prostate (prostate gland) is to add fluid to semen during ejaculation. Prostate cancer is the second most common type of cancer in men. A screening test for cancer is a test that is done before cancer symptoms start. Screening can help to identify cancer at an early stage, when the cancer can be treated more easily. The recommended prostate cancer screening test is a blood test called the prostate-specific antigen (PSA) test. PSA is a protein that is made in the prostate. As you age, your prostate naturally produces more PSA. Abnormally high PSA levels may be caused by: Prostate cancer. An enlarged prostate that is not caused by cancer (benign prostatic hyperplasia, BPH). This condition is very common in older men. A prostate gland infection (prostatitis). Medicines to assist with hair growth, such as finasteride. Depending on the PSA results, you may need more tests, such as: A physical exam to check the size of your prostate gland. Blood and imaging tests. A procedure to remove tissue samples from your prostate gland for testing (biopsy). Who should have screening? Screening recommendations vary based on age. If you are younger than age 40, screening is not recommended. If you are age 40 54 and you have no risk factors, screening is not recommended. If you are younger than age 55, ask your health care provider if you need screening if you have one of these risk factors: ?Being of -[place] descent. ?Having a family history of prostate cancer. If you are age 55 69, talk with your health care provider about your need for screening and how often screening should be done. If you are older than age 70, screening is not recommended. This is because the risks that screening can cause are greater than the benefits that it may provide (risks outweigh the benefits). If you are at high risk for prostate cancer, your health care provider may recommend that you have screenings more often or start screening at a younger age. You may be at high risk if you: Are older than age 55. Are -[place]. Have a father, brother, or uncle who has been diagnosed with prostate cancer. The risk may be higher if your family member's cancer occurred at an early age. What are the benefits of screening? There is a small chance that screening may lower your risk of dying from prostate cancer. The chance is small because prostate cancer is typically a slow-growing cancer, and most men with prostate cancer from a different cause. What are the risks of screening? The main risk of prostate cancer screening is diagnosing and treating prostate cancer that would never have caused any symptoms or problems (overdiagnosis and overtreatment). PSA screening cannot tell you if your PSA is high due to cancer or a different cause. A prostate biopsy is the only procedure to diagnose prostate cancer. Even the results of a biopsy may not tell you if your cancer needs to be treated. Slow-growing prostate cancer may not need any treatment other than monitoring, so diagnosing and treating it may cause unnecessary stress or other side effects. A prostate biopsy may also cause: Infection or fever. A false negative. This is a result that shows that you do not have prostate cancer when you actually do have prostate cancer. Questions to ask your health care provider When should I start prostate cancer screening? What is my risk for prostate cancer? How often do I need screening? What type of screening tests do I need? How do I get my test results? What do my results mean? Do I need treatment? Contact a health care provider if: You have difficulty urinating. You have pain when you urinate or ejaculate. You have blood in your urine or semen. You have pain in your back or in the area of your prostate. You have trouble getting or maintaining an erection (erectile dysfunction, ED). Summary Prostate cancer is a common type of cancer in men. The prostate (prostate gland) is located below the bladder and in front of the rectum. This gland adds fluid to semen during ejaculation. Prostate cancer screening may identify cancer at an early stage, when the cancer can be treated more easily. The prostate-specific antigen (PSA) test is the recommended screening test for prostate cancer. Discuss the risks and benefits of prostate cancer screening with your health care provider. If you are age 70 or older, screening is likely to lead to more risks than benefits (risks outweigh the benefits). This information is not intended to replace advice given to you by your health care provider. Make sure you discuss any questions you have with your health care provider. Document Released: 07/23/2018 Document Revised: 09/24/2018 Document Reviewed: 07/23/2018 [employer] 2020 [employer] Follow Up Care 06/28/2021 10:33:47 With:MARVEL ELLIS, Brian Cartagena, URL Address: [address] [place] [phone] When: Unknown [facility] Evaluation + Plan note No data available for this section [facility] Evaluation + Plan note Future Appointments Appointment Date:12/01/2022 10:45:00 AM Scheduled Provider:Brian TAPIA MD Location:[facility] Appointment Type:URO Office Visit Diagnostic Tests PendingProstate Histology ([facility]) 11/11/22Prostate Histology ([facility]) 11/11/22 [facility] Evaluation + Plan note Future Appointments Appointment Date:12/01/2022 10:45:00 AM Scheduled Provider:Brian TAPIA MD Location:[facility] Appointment Type:URO Office Visit [facility] Evaluation + Plan note Future Appointments Appointment Date:12/04/2023 08:30:00 AM Scheduled Provider:Brian TAPIA MD Location:[facility] Appointment Type:URO Office Visit Diagnostic Tests PendingPSA Total 12/01/22 [facility] Evaluation + Plan note Future Appointments Appointment Date:12/09/2024 08:00:00 AM Scheduled Provider:Brian TAPIA MD Location:[facility] Appointment Type:URO Office Visit Diagnostic Tests PendingPSA Total 12/04/23 [facility] Evaluation note No assessment inform ation available [facility] Work Phone: Hospital Discharge instructions No data available for this section [facility] Progress note No data available for this section [facility] Summary Purpose Family History No Family History Records FoundNo Family History Records FoundNo Family History Records FoundNo Family History Records FoundNo Family History Records Found No data available for this section No Family History Records Found Advance Directives No Advanced Directives Records Found Advance Directive Response Recorded Date/ Time Advance Directives No August 13, 2022 1:04pm Chief Complaint and Reason for Visit Chief Complaint Elevated PSA Additional Source Comments (unrecognized sect ion and content) No Status Records FoundNo Status Records FoundNo Status Records FoundNo Status Records FoundNo Status Records FoundNo Status Records Found INFORMATION SOURCE (unrecogn ized section and content) DATE CREATED AUTHOR 10/20/2018 [facility] DATE CREATED AUTHOR AUTHOR'S ORGANIZ ATION 08/18/2022 [facility] DATE CREATED AUTHOR AUTHOR'S ORGANIZ ATION 08/19/2022 [facility] DATE CREATED AUTHOR AUTHOR'S ORGANIZ ATION 03/08/2023 [facility] DATE CREATED AUTHOR AUTHOR'S ORGANIZ ATION 09/25/2023 [facility] EPIC DATE CREATED AUTHOR AUTHOR'S ORGANIZ ATION 12/05/2023 [facility] Patient Care team informatio n (unrecognized section and content) Team Status: Inactive Member Role Status Dates Brian Tapia MD Attending Provider Active Zoey Latham DO Primary Care Provider Active Team Status: Active Member Role Status Dates Zoey Latham DO Primary Care Provider Active Last Ironer Relationship Specialty Start Date End Date Zoey Latham DO [address] [place] [address] PCP - A[facility] Reach 03/19/23 Zoey Latham DO [address] [place] [address] PCP - General Internal Medicine 03/03/23 Goals (unrecognized section and content) Goals may be documented in a n alternate section FOR RECORDS PERTAINING TO PATIENTS WHO ARE OR HAVE BEEN ENROLLED IN A CHEMICAL DEPENDENCY/SUBSTANCEABUSE PROGRAM, SOME INFORMATION MAY BE OMITTED. This clinical summary was aggregated from multiple sources. Caution should be exercised in using it in the provision of clinical care. This summary normalizes information from multiple sources, and as a consequence, information in this document may materially change the coding, format and clinical context of patient data. In addition, data may be omitted in some cases. CLINICAL DECISIONS SHOULD BE BASED ON THE PRIMARY CLINICAL RECORDS. [employer] [facility]. provides no warranty or guarantee of the accuracy or completeness of information in this document.
[2024-03-10 07:28] LABS: Creatinine Urine Random 134.11 mg/dL (20.00-300.00); Microalbum Creatinine Ratio Ur 9.6 mg/g (0.0-29.9); Microalbumin Urine Random <1.3 mg/dL (<=30.0)
[2024-03-10 07:28] LABS: Alanine Aminotransferase 28 U/L (16-63); Albumin Globulin Ratio 0.9; Albumin Level 3.4 g/dL (3.4-5.0); Alkaline Phosphatase 80 U/L (46-116); Anion Gap 12.9; Aspartate Amino Transferase 18 U/L (15-37); BUN Creatinine Ratio 17.2; Bilirubin Total 0.6 mg/dL (0.2-1.0); Carbon Dioxide 28.1 mmol/L (21.0-32.0); Chloride 104 mmol/L (98-107); Chol HDL Ratio 3.2; Cholesterol 162 mg/dL (<=200); Estimated GFR (African America >60 (>=60); Estimated GFR (Non-African Ame >60 (>=60); Globulin 3.7 g/dL; Glucose 106 mg/dL (74-106); HDL Cholesterol 50 mg/dL (40-60); LDL Cholesterol Calculated 103.2 mg/dL; Sodium 141 mmol/L (136-145); Total Protein 7.1 g/dL (6.4-8.2); Triglycerides 44 mg/dL (<=150); VLDL CHOLESTEROL 8.8 mg/dL
== END 2024-03-10 06:35 | disposition home or self-care (01) ==
LOC: LAB 06:34
PROVIDERS: PCP Internal Medicine; Visit Provider Nurse Practitioner Adult Health
DX: E78.2 Mixed hyperlipidemia (principal); I10 Essential (primary) hypertension
CPT/HCPCS: 36415; 80053; 80061; 82043; 82570

== ENCOUNTER 2024-09-15 06:32 | Outpatient (OUT) | payer MEDICARE, OTHER, SELFPAY ==
--- OUTSIDE RECORDS SUMMARY | 2024-09-15 06:35 | XMS_ITS | CCD ---
Author Organization [facility] Informat ion Partnership [facility] Care Team Providers Care Environmental Services Floor Tech Name Role Phone BRIAN TAPIA Unavailable ANAYELI Szymanski Primary Care Physician [phone] MD Brian Tapia Attending Provider DO Zoey Latham Primary Care Provider [phone] Zoey Latham Primary Care Unavailable Brian Tapia [...] Care Unavailable NOA, DR GREER Consulting Unavailable Zoey Latham DO Unavailable [phone] Zoey Latham DO Primary Care Provider Brian TAPIA Attending Brian Villarreal Attending Zoey Pierce Attending ZOEY Oakley Attending Unavailable ZOEY LATHAM Referring Unavailable ZOEY LATHAM Attending ZOEY Oakley Referring Unavailable Medications Current Medications Medication Drug Class(es) Dates Sig (Normalized) Sig (Original) acetaminophen 325 mg / HYDROcodone bitartrate 7.5 mg oral tablet (2 sources) Opioid Agonist Start: 10-29-2022 take 1 tablet by mouth once, then take 1 tablet by mouth every hour Colbert 325 mg-7.5 mg oral tablet 1 tab(s), Oral, Once, 1 tab(s), Refill(s) 0, Take 1 hour prior to procedure. Don't drive or operate machinery while taking this medication., [facility]/pharmacy #[id number], 182, cm, 08/01/22 11:50:00 EDT, Height/Length [...] day, # 45 cap(s), Refills(s) 11, Pharmacy: [facility]/pharmacy #[id number], 182, cm, 08/01/22 11:50:00 EDT, Height/Length Dosing, 93.2, kg, 08/01/22 11:50:00 EDT, Weight Dosing Start Date: 08/01/22 Status: Ordered take 1 capsule by [facility] every twenty-four hours in the morning tamsulosin [...] Where: [facility] [address], [place] [address] [phone] Medications What How Much When Instructions Unchanged [...] exam ma (more content not included)... Normal [facility] Patient Educationon 12-04-19 Patient Education Oncology Prostate Cancer Screening Prostate [...] Where to find more information ? The [place] [employer]: www.cancer.org ? [place] [employer]: www.auanet.org Contact a health care [...] adds flu (more content not included)... Normal [facility] Urology Office/Clinic Noteon 12-04-2023 Urology Office/Clinic Note [...] 09/2018 - PI-RADS 2. [place] [facility] [place] evidence of [place] malignancy. Prostate [...] Follow-up With When Contact Information MARVEL ELLIS, Brian Cartagena, URL In 1 year [facility] [address] [place] [address] [phone] Additional Instructions: w/ PSA Patient Education Prostate Cancer Screening I, Taryn Casarez, personally scribed for Dr. Tapia on 12/04/2023 [...] virus vaccine, inactivated 08/10/2022 Recorded SARS-CoV-2 (COVID-19) [id number] 08/10/2022 Recorded influenza virus vaccine, inactivated 08/02/2021 Recorded SARS-CoV-2 (COVID-19) mRNA BNT-162b2 vax 08/02/2021 Recorded 2023-12-04: TPV70 SARS-CoV-2 (COVID-19) Ad26 vaccine 02/2021 Recorded unable to give exact dates SARS-CoV-2 (COVID-19) mRNA BNT-162b2 vax 12/21/2020 Recorded 2023-12-04: TPV70 SARS-CoV-2 (COVID-19) mRNA BNT-162b2 vax 11/30 (more content not included)... Normal [facility] Comment on above: Result Comment: Elec tronically Signed By: Brian TAPIA MD\.br\Date and Time Signed: 12/04/23 09:26 EST\.br\Electronically Co-Signed By: Taryn Casarez.br\Date and Time Co-Signed: 12/04/23 09:24 EST Lab Reportson 11-30-2023 Lab Reports [id number]#[id number] Normal [facility] MHPT PSA, DIAGNOSTICon 11-27 Interpretation and review of laboratory results Abnormal [facility] PROSTATE SPECIFIC ANTIGEN DX 12.27 ng/mL High NINF - 4.00 ng/mL [facility] 09-16-2023 Consent [id number]#[id number] Normal [facility] Consent [id number]#[id number] Normal [facility] GLYCOHEMOGLOBIN A1Con 2022 ADA RECOMMENDATION SEE BELOW [facility] Comment on above: Result Comment: ADA RECOMMENDED LIMIT 4.0 - 6.0 ADA THERAPEUTIC TARGET < 7.0 ACTION SUGGESTED > 7.0 Performed By: #### A 1C #### [facility] [address] [place] [address] Dr. Khari Meadows Glucose [Mass/Vol] 108 mg/dL Normal [facility] Comment on above: Performed By: #### A 1C #### [facility] [address] [place] [address] Dr. Khari Meadows HbA1c (Bld) [Mass fraction] 5.4 % Normal 4.5-6.2 [facility] Comment on above: Performed By: #### A 1C #### [facility] [address] [place] [address] Dr. Khari Meadows MICROALBUMIN, RAND URon 05-0 mALB <1.3 Normal <=30.0 [facility] Comment on above: Performed By: #### M ALBR #### [facility] [address] [place] [address] Dr. Khari Meadows PROF CHEM 8 (BAS METB)on Anion gap [Moles/Vol] 10.9 mmol/L Normal [facility] Comment on above: Performed By: #### B MP #### [facility] [address] [place] [address] Dr. Khari Meadows Calcium [Mass/Vol] 9.0 mg/dL Normal 8.5-10.1 [facility] Comment on above: Performed By: #### B MP #### [facility] [address] [place] [address] Dr. Khari Meadows Chloride [Moles/Vol] 105 mmol/L Normal 98-107 [facility] Comment on above: Performed By: #### B MP #### [facility] [address] [place] [address] Dr. Khari Meadows CO2 [Moles/Vol] 27.7 mmol/L Normal 21.0-32.0 [facility] Comment on above: Performed By: #### B MP #### [facility] [address] [place] [address] Dr. Khari Meadows Creatinine [Mass/Vol] 1.24 mg/dL Normal 0.70-1.30 [facility] Comment on above: Performed By: #### B MP #### [facility] [address] [place] [address] Dr. Khari Meadows EGFR-AF [place] >60 Normal >=60 [facility] Comment on above: Performed By: #### B MP #### [facility] [address] [place] [address] Dr. Khari Meadows EGFR-NON AF [place] 57 mL/min/1.73m2 Critically low >=60 [facility] Comment on above: Performed By: #### B MP #### [facility] [address] [address] [address] Khari Meadows Glucose [Mass/Vol] 95 mg/dL Normal 74-106 [facility] Comment on above: Performed By: #### B MP #### [facility] [address] [place] [address] Dr. Khari Meadows Potassium [Moles/Vol] 3.6 mmol/L Normal 3.5-5.1 [facility] Comment on above: Performed By: #### B MP #### [facility] [address] [place] [address] Dr. Khari Meadows Sodium [Moles/Vol] 140 mmol/L Normal 136-145 [facility] Comment on above: Performed By: #### B MP #### [facility] [address] [place] [address] Dr. Khari Meadows Urea nitrogen [Mass/Vol] 26.0 mg/dL Critically high 7.0-18.0 [facility] Comment on above: Performed By: #### B MP #### [facility] [address] [place] [address] Dr. Khari Meadows Urea nitrogen/Creatinine [Mass ratio] 21.0 mg/mg Normal [facility] Comment on above: Performed By: #### B MP #### [facility] [address] [place] [address] Dr. Khari Meadows UA RANDOMon 03-03-2023 Bilirubin Ql (U) Negative Normal NEGATIVE [facility] Comment on above: Performed By: #### U A #### [facility] [address] [place] [address] Dr. Khari Meadows Clarity (U) CLEAR Normal CLEAR [facility] Comment on above: Performed By: #### U A #### [facility] [address] [place] [address] Dr. Khari Meadows Color (U) LT. YELLOW Normal YELLOW [facility] Comment on above: Performed By: #### U A #### [facility] [address] [place] [address] Dr. Khari Meadows Glucose Ql (U) Negative Normal NEGATIVE [facility] Comment on above: Performed By: #### U A #### [facility] [address] [address] [address] Khari Meadows Hemoglobin Ql (U) Negative Normal NEGATIVE [facility] Comment on above: Performed By: #### U A #### [facility] [address] [address] [address] Khari Meadows Ketones Ql (U) Negative Normal NEGATIVE [facility] Comment on above: Performed By: #### U A #### [facility] [address] [place] [address] Dr. Khari Meadows LEUKOCYTES Negative Normal NEGATIVE [facility] Comment on above: Performed By: #### U A #### [facility] [address] [place] [address] Dr. Khari Meadows Nitrite Ql (U) Negative Normal NEGATIVE [facility] Comment on above: Performed By: #### U A #### [facility] [address] [place] [address] Dr. Khari Meadows pH (U) 6.0 [pH] Normal 5-9 [facility] Comment on above: Performed By: #### U A #### [facility] [address] [place] [address] Dr. Khari Meadows SPEC GRAVITY 1.025 Normal 1.005-<=1. 025 [facility] Comment on above: Performed By: #### U A #### [facility] [address] [place] [address] Dr. Khari Meadows UA PROTEIN Negative Normal NEGATIVE/ TRACE [facility] Comment on above: Performed By: #### U A #### [facility] [address] [place] [address] Dr. Khari Meadows Urobilinogen Qn (U) 0.2 {Yaneth'U}/dL Normal 0.2 - 1. 0 [facility] Comment on above: Performed By: #### U A #### [facility] [address] [place] [address] Dr. Khari Meadows LIPID PROFILEon 09-05-2022 CHOL-HDL RATIO NORM SEE BELOW Normal [facility] Comment on above: Result Comment: 3.3 - 4.4 LOW RISK 4.4 - 7.1 AVERAGE RISK 7.1 - 11.0 MODERATE RISK >11.0 HIGH RISK Performed By: #### L IPID, CMP #### [facility] [address] [address] [address] Khari Meadows Cholesterol [Mass/Vol] 156 mg/dL Normal <=200 [facility] Comment on above: Performed By: #### L IPID, CMP #### [facility] [address] [place] [address] Dr. Khari Meadows Cholesterol in HDL [Mass/Vol] 45 mg/dL Normal 40-60 [facility] Comment on above: Performed By: #### L IPID, CMP #### [facility] [address] [place] [address] Dr. Khari Meadows Cholesterol in LDL [Mass/Vol] 99.6 mg/dL Normal [facility] Comment on above: Performed By: #### L IPID, CMP #### [facility] [address] [place] [address] Dr. Khari Meadows Cholesterol.total/C holesterol in HDL [Mass ratio] 3.5 {ratio} Normal [facility] Comment on above: Performed By: #### L IPID, CMP #### [facility] [address] [place] [address] Dr. Khari Meadows HDL NORMAL > or = 60 mg/dl - LO W CARDIOVASCULAR RISK <40 mg/dl - HIGH CARDIOVASCULAR RISK Normal [facility] Comment on above: Performed By: #### L IPID, CMP #### [facility] [address] [place] [address] Dr. Khari Meadows LDL CALC NORMAL SEE BELOW Normal [facility] Comment on above: Result Comment: <100 mg/dl OPTIMAL 100 - 129 mg/dl NEAR OR ABOVE OPTIMAL 130 - 159 mg/dl BORDERLINE HIGH 160 - 189 mg/dl HIGH >190 mg/dl VERY HIGH Performed By: #### L IPID, CMP #### [facility] [address] [address] [address] Khari Meadows Triglyceride [Mass/Vol] 57 mg/dL Normal <=150 [facility] Comment on above: Performed By: #### L IPID, CMP #### [facility] [address] [address] [address] Khari Meadows VLDL CALC 11.4 mg/dL Normal [facility] Comment on above: Performed By: #### L IPID, CMP #### [facility] [address] [address] [address] Khari Meadows PROF 14(COMP METB)on 022 Albumin [Mass/Vol] 3.6 g/dL Normal 3.4-5.0 [facility] Comment on above: Performed By: #### L IPID, CMP #### [facility] [address] [place] [address] Dr. Khari Meadows Albumin/Globulin [Mass ratio] 1.0 {ratio} Normal [facility] Comment on above: Performed By: #### L IPID, CMP #### [facility] [address] [place] [address] Dr. Khari Meadows ALP [Catalytic activity/Vol] 73 U/L Normal 46-116 [facility] Comment on above: Performed By: #### L IPID, CMP #### [facility] [address] [place] [address] Dr. Khari Meadows ALT [Catalytic activity/Vol] 30 U/L Normal 16-63 [facility] Comment on above: Performed By: #### L IPID, CMP #### [facility] [address] [place] [address] Dr. Khari Meadows Anion gap [Moles/Vol] 9.4 mmol/L Normal [facility] Comment on above: Performed By: #### L IPID, CMP #### [facility] [address] [place] [address] Dr. Khari Meadows AST [Catalytic activity/Vol] 20 U/L Normal 15-37 [facility] Comment on above: Performed By: #### L IPID, CMP #### [facility] [address] [address] [address] Khari Meadows Bilirubin [Mass/Vol] 0.4 mg/dL Normal 0.2-1.0 [facility] Comment on above: Performed By: #### L IPID, CMP #### [facility] [address] [place] [address] Dr. Khari Meadows Calcium [Mass/Vol] 9.1 mg/dL Normal 8.5-10.1 [facility] Comment on above: Performed By: #### L IPID, CMP #### [facility] [address] [place] [address] Dr. Khari Meadows Chloride [Moles/Vol] 105 mmol/L Normal 98-107 [facility] Comment on above: Performed By: #### L IPID, CMP #### [facility] [address] [place] [address] Dr. Khari Meadows CO2 [Moles/Vol] 29.9 mmol/L Normal 21.0-32.0 [facility] Comment on above: Performed By: #### L IPID, CMP #### [facility] [address] [place] [address] Dr. Khari Meadows Creatinine [Mass/Vol] 1.27 mg/dL Normal 0.70-1.30 [facility] Comment on above: Performed By: #### L IPID, CMP #### [facility] [address] [place] [address] Dr. Khari Meadows EGFR-AF [place] >60 Normal >=60 [facility] Comment on above: Performed By: #### L IPID, CMP #### [facility] [address] [place] [address] Dr. Khari Meadows EGFR-NON AF [place] 56 mL/min/1.73m2 Critically low >=60 [facility] Comment on above: Performed By: #### L IPID, CMP #### [facility] [address] [place] [address] Dr. Khari Meadows Globulin (S) [Mass/Vol] 3.6 g/dL Normal [facility] Comment on above: Performed By: #### L IPID, CMP #### [facility] [address] [address] [address] Khari Meadows Glucose [Mass/Vol] 112 mg/dL Critically high 74-106 [facility] Comment on above: Performed By: #### L IPID, CMP #### [facility] [address] [place] [address] Dr. Khari Meadows Potassium [Moles/Vol] 5.3 mmol/L Critically high 3.5-5.1 [facility] Comment on above: Performed By: #### L IPID, CMP #### [facility] [address] [place] [address] Dr. Khari Meadows Protein [Mass/Vol] 7.2 g/dL Normal 6.4-8.2 [facility] Comment on above: Performed By: #### L IPID, CMP #### [facility] [address] [place] [address] Dr. Khari Meadows Sodium [Moles/Vol] 139 mmol/L Normal 136-145 [facility] Comment on above: Performed By: #### L IPID, CMP #### [facility] [address] [place] [address] Dr. Khari Meadows Urea nitrogen [Mass/Vol] 30.0 mg/dL Critically high 7.0-18.0 [facility] Comment on above: Performed By: #### L IPID, CMP #### [facility] [address] [place] [address] Dr. Khari Meadows Urea nitrogen/Creatinine [Mass ratio] 23.6 mg/mg Normal [facility] Comment on above: Performed By: #### L IPID, CMP #### [facility] [address] [place] [address] Dr. Khari Meadows XR Ankle Complete Left*on [...] by RICHARD LARA on 08/17/2022 1407 Normal [facility] Engraver Pantograph XR Foot Complete Left*on XR Foot Complete [...] by RICHARD LARA on 08/17/2022 1408 Normal [facility] Specialist MR prostate wo/w conon 08-14 MR prostate wo/w con [facility] [place] [address] [place] [address] MRI Report Signed Patient: Agus Ortiz MR#: [id number] [birth year] : 1950 Acct:[id number] Age/Sex: 71 / M ADM Date: 08/13/22 Loc: Room: Type: [facility] Attending Dr: Brian Tapia MD Copies to: [...] Rg Jr., D.O.08/14/2022 9:33 AM Dictation Location: [facility] Transcribed By: [facility] 08/14/22932 Dictated By: King Rg Jr, DO 08/14/22926 Signed By: 08/14/22932 [facility] Creatinine (Bld) [Mass/Vol]O rdered By: Brian Tapia on 08-13-2022 Creatinine [Mass/Vol] 1.3 mg/dL 0.6-1.3 [facility] Comment on above: ER/ESD physician is notified/shown all ISTAT results.Critical values may be confirmed by laboratory testing ifdeemed necessary by ER attending doctor. ISTAT XRay CREon 08-13-2022 Creatinine [Mass/Vol] 1.3 mg/dL Normal 0.6-1.3 [facility] Comment on above: Result Comment: ER/E SD physician is notified/shown all ISTAT results. Critical values may be confirmed by laboratory testing if deemed necessary by ER attending doctor. Performed By: #### I SCRE #### [address] Point of Care testing , ISTAT GFR ( > 60 [facility] Comment on above: Result Comment: GFR estimated reference range: According to KDOQI guidelines, <60 ml/min/1.73m2 is sufficient to diagnose a patient with chronic kidney disease. PERFORMED BY: [place] [address] PATHOLOGIST SUPERVISOR [employer] MELVIN DANG M.D. Performed By: #### I SCRE #### [facility] [address] [place] [address] Point of Care testing , ISTAT GFR (Non- Am 54 [facility] Comment on above: Performed By: #### I SCRE #### [address] Point of Care testing , No Panel InformationOrdered By: Brian Tapia on 08-13-2022 POC Estimated GFR > 60 [facility] Comment on above: GFR estimated refere nce range: According to KDOQI guidelines, <60 ml/min/1.73m2 is sufficient to diagnose a patient with chronic kidney disease. POC Estimated GFR Non- Amer 54 [facility] GLYCOHEMOGLOBIN A1Con 2021 ADA RECOMMENDATION SEE BELOW Normal [facility] Comment on above: Result Comment: ADA RECOMMENDED LIMIT 4.0 - 6.0 ADA THERAPEUTIC TARGET < 7.0 ACTION SUGGESTED > 7.0 Performed By: #### A 1C #### [facility] [address] [place] [address] Dr. Khari Meadows Glucose [Mass/Vol] 111 mg/dL Normal [facility] Comment on above: Performed By: #### A 1C #### [facility] [address] [place] [address] Dr. Khari Meadows HbA1c (Bld) [Mass fraction] 5.5 % Normal 4.5-6.2 [facility] Comment on above: Performed By: #### A 1C #### [facility] [address] [place] [address] Dr. Khari Meadows MICROALBUMIN, RAND URon 04-25 mALB <1.3 Normal <=30.0 [facility] Comment on above: Performed By: #### M ALBR #### [facility] [address] [place] [address] Dr. Khari Meadows PROF CHEM 8 (BAS METB)on Anion gap [Moles/Vol] 10.1 mmol/L Normal [facility] Comment on above: Performed By: #### B MP #### [facility] [address] [place] [address] Dr. Khari Meadows Calcium [Mass/Vol] 9.2 mg/dL Normal 8.5-10.1 [facility] Comment on above: Performed By: #### B MP #### [facility] [address] [place] [address] Dr. Khari Meadows Chloride [Moles/Vol] 104 mmol/L Normal 98-107 [facility] Comment on above: Performed By: #### B MP #### [facility] [address] [place] [address] Dr. Khari Meadows CO2 [Moles/Vol] 27.6 mmol/L Normal 21.0-32.0 [facility] Comment on above: Performed By: #### B MP #### [facility] [address] [address] [address] Khari Meadows Creatinine [Mass/Vol] 1.47 mg/dL Critically high 0.70-1.30 [facility] Comment on above: Performed By: #### B MP #### [facility] [address] [address] [address] Khari Meadows EGFR-AF [place] 57 mL/min/1.73m2 Critically low >=60 [facility] Comment on above: Performed By: #### B MP #### [facility] [address] [place] [address] Dr. Khari Meadows EGFR-NON AF [place] 47 mL/min/1.73m2 Critically low >=60 [facility] Comment on above: Performed By: #### B MP #### [facility] [address] [place] [address] Dr. Khari Meadows Glucose [Mass/Vol] 105 mg/dL Normal 74-106 [facility] Comment on above: Performed By: #### B MP #### [facility] [address] [place] [address] Dr. Khari Meadows Potassium [Moles/Vol] 3.7 mmol/L Normal 3.5-5.1 [facility] Comment on above: Performed By: #### B MP #### [facility] [address] [address] [address] Khari Meadows Sodium [Moles/Vol] 138 mmol/L Normal 136-145 [facility] Comment on above: Performed By: #### B MP #### [facility] [address] [place] [address] Dr. Khari Meadows Urea nitrogen [Mass/Vol] 34.0 mg/dL Critically high 7.0-18.0 [facility] Comment on above: Performed By: #### B MP #### [facility] [address] [place] [address] Dr. Khari Meadows Urea nitrogen/Creatinine [Mass ratio] 23.1 mg/mg Normal [facility] Comment on above: Performed By: #### B #### [facility] [address] [address] [address] Khari Meadows ALLIED HEALTHon 10-18-2018 [facility] HNO ID: [id number] thor: Darek Guevara (Rt)e: (none)Author Type: TechnicianType: Allied HealthFiled: 10/18/2018 2:01 PMNote Text: Radiology Service Progress NotePATIENT NAME: Agus YooN: [id number] OF SERVICE: October 18, 2018TIME: 1:58 PMPATIENT IDENTITY VERIFICATION COMPLETED USING TWO (2) METHODS: Patientconfirmed name verbally and Date of .PATIENT GENDER DATA: MalePATIENT RELEVANT IMPLANT DATA REVIEWED: YesCONTRAST INDUCED NEPHROPATHY RISK FACTORS: Patient age > 60 yearsCREATININE:Creatinine (POCT)Date Value Ref Range Ascrpb0910/18/2018 1.40 (A) 0.58 - 1.22 mg/dL Final eGFR-All Other Races (POCT)Date Value Ref Range Ehtixw2010/18/2018 50 mL/min/1.73 m2 Final eGFR- (POCT)Date Value Ref Range [id number]/18/2018 >60 mL/min/1.73 m2 Final P.O.C.T. RESULTS: POC done: Yes, See Lab Tab October 18, 2018RADIOLOGIST NOTIFIED?: NoALLERGIES: Reviewed and unchangedCONTRAST ALLERGY: NO.PERIPHERAL IV ACCESS: Ambulatory: IV type: Existing peripheral IVutilized, Site assessment: Clean,Dry and Intact, Site dispositionDiscontinuedRADIOLO GY DEPARTMENT: MR; Exam(s) Completed: Body: ProstateSIGNED BY: Sandip Guevara 2017 1:58 PM Normal [facility] MRI PROSTATE WO/W IVCONon Protein mass conc * * *Final Report* * *DATE OF EXAM: Oct 18 2018 2:47PM [facility] 0751 - MRI PROSTATE WO/W IVCON [...] and coronal high resolution T2-WI with small [id number];Axial diffusion weighted images with multiple B-values and creation of ADC-maps;Dynamic contrast enhanced T1-weighted images through the prostate were also obtained before, during and after the administration of intravenous gadolinium. Subsequently, larger field of view 3D T1 weighted axial images were obtained through the pelvis.Prostate dimension, volume and pharmacokinetics were obtained using a semi-automated software ([employer]).M: MRPro_2Contrast: IV administration of 20 ml of [...] of suspicion for clinically significant prostate cancer (Dolly score 3 + 4 or higher).PI-RADS assessment [...] VALERA MD on Oct 18 2018 5:14PM [id number] [facility] NURSING PROGon 10-18-2018 Protein mass conc HNO ID: [id number] thor: Aundrea (Rn) TIMOTHY Sauerervice: RadiologyAuthor Type: Registered NurseType: Nursing Progress NoteFiled: 10/18/2018 12:57 PMNote Text: Radiology Service Progress NotePATIENT NAME: Agus Oneil: [id number] OF SERVICE: October 18, 2018TIME: 12:56 PMPATIENT [...] SITE APPEARANCE: Clean,Dry and IntactSIGNED BY: Farideh Dubonissac 2017 12:56 PM [facility] Vital Signs Date Time Vital Sign Value Performing Clinician Faci litviktor 12-04-2023 08:29-0500 Blood Pressure Location Brian TAPIA [facility] 12-04-2023 08:29-0500 Diastolic blood pressure 84 mm[Hg] Brian TAPIA [facility] 12-04-2023 08:29-0500 Heart rate 80 /min Brian TAPIA [facility] 12-04-2023 08:29-0500 Respiratory rate 16 /min Brian TAPIA [facility] 12-04-2023 08:29-0500 Systolic blood pressure 132 mm[Hg] Brian TAPIA [facility] 08-01-2022 11:43-0400 Blood Pressure Location Brian TAPIA [facility] 08-01-2022 11:43-0400 Diastolic blood pressure 84 mm[Hg] Brian TAPIA [facility] 08-01-2022 11:43-0400 Heart rate 60 /min Brian TAPIA [facility] 08-01-2022 11:43-0400 Respiratory rate 18 /min Brian TAPIA [facility] 08-01-2022 11:43-0400 Systolic blood pressure 175 mm[Hg] Brian TAPIA [facility] Encounters Encounter Date Encounter Type Care Provider Facility Start: 12-09-2024 ambulatory Brian TAPIA Facili ty:[facility] Start: 03-16-2024 End: 03-16-2024 ambulatory ZOEY LATHAM Not Available Start: 12-04-2023 End: 12-05-2023 ambulatory Brian TAPIA Facility:[facility] Start: 12-04-2023 End: 12-04-2023 Patient encounter procedure Brian TAPIA [facility] Start: 11-27-2023 Clinisync Result Encounter Generic External Data Provider [facility] External Department Unsolicited Start: 11-27-2023 Clinisync Result Encounter Generic External Data Provider [facility] External Department Unsolicited Start: 09-23-2023 End: 09-23-2023 ambulatory ZOEY LATHAM Not Available Start: 09-16-2023 End: 09-17-2023 ambulatory Zoey LOPEZ Facility:[facility] Start: 03-03-2023 End: 03-04-[address] ZOEY LATHAM Facility: Start: 12-01-2022 End: 12-01-2022 Patient encounter procedure Brian TAPIA [facility] Start: 11-11-2022 End: 11-11-2022 Patient encounter procedure Brian TAPIA [facility] Start: 11-04-2022 End: 11-12-2022 Pre-admission assessment Brian TAPIA [facility] Start: 09-05-2022 End: 09-06-[address] ZOEY LATHAM Facility:[facility] Start: 08-13-2022 End: 08-13-2022 ambulatory Zoey Latham Facility:[facility] Start: 08-13-2022 End: 08-13-2022 ambulatory DO Zoey Latham Work Phone: [facility] Work Phone: Start: 08-13-2022 End: 08-13-2022 Patient encounter procedure DO Zoey Latham Work Phone: [facility] [place] Start: 08-01-2022 End: 08-01-2022 Patient encounter procedure Brian TAPIA [facility] Start: 07-03-2022 End: 07-04-[address] BRIAN TAPIA . Facility:[facility] Start: 05-06-2022 End: 05-07-[address] ZOEY LATHAM Facility:[facility] Start: 10-18-2018 Patient encounter procedure BRIANMARTÍN TAPIA [facility] Procedures Date Procedure Procedure Detail Performing Clinician Start: 11-27-2023 MHPT PSA, DIAGNOSTIC Ge neric External Data Provider Start: 11-11-2022 Transrectal biopsy o f prostate using ultrasound guidance Brian TAPIA Start: 07-03-[address] TEDDY LATHAM Comment on above: Performed By: #### P SAD #### [facility] [address] [place] [address] Dr. Khari Meadows Start: 04-03-2020 Transrectal biopsy [...] 11-19-2024 Screening for malignant neoplasm of colon [facility] Start: 03-16-2024 End: 03-16-2024 Patient encounter procedure 03/16/2024 9:15 AM EDT Office Visit [facility] [address] [place] [id number] Zoey Latham DO [address] [place] [address] [facility] Start: 08-13-2022 MR Prostate WO and W contrast IV [facility] Start: 08-13-2022 MR prostate wo/w con MR prostate wo/w con [facility] Start: 08-17-2020 Pneumococcal Vaccine: 65+ Years (2 - PCV) Pneumococcal Vaccine: 65+ Years (2 - PCV) [facility] Start: 1950 Screening for malignant neoplasm of colon [facility] Immunizations Immunization Date Immunization Notes Care Provider Osiris trotterty 08-01-2023 influenza virus vacc ine, unspecified formulation Brian TAPIA [facility] 08-01-2023 Influenza, Seasonal, Quadrivalent, Adjuvanted Generic Provider [facility] 08-01-2023 SARS-COV-2 (COVID-19 ) vaccine, mRNA, spike protein, LNP, PF, prema-sucrose, 30 mcg/0.3 mL Generic Provider [facility] 08-10-2022 influenza virus vacc ine, unspecified formulation Brian TAPIA [facility] 08-10-2022 Influenza, High-dose Seasonal, Quadrivalent, Preservative Free Generic Provider [facility] 08-10-2022 SARS-COV-2 (COVID-19 ) vaccine, mRNA, spike protein, LNP, bivalent, preservative free, 30 mcg/0.3 mL dose, prema-sucrose formulation Generic Provider [facility] 08-02-2021 influenza virus vacc ine, unspecified formulation Brian TAPIA [facility] 08-02-2021 Influenza, High-dose Seasonal, Quadrivalent, Preservative Free Generic Provider [facility] 08-02-2021 SARS-CoV-2 (COVID-19 ) mRNA BNT-162c6 vax Brian TAPIA [facility] Comment on above: Result Comment: 2023: TPV70 02-23-2021 SARS-CoV-2 (COVID-19 ) Ad26 vaccine, recombinant Brian TAPIA [facility] Comment on above: Result Comment: unab le to give exact dates 12-21-2020 SARS-CoV-2 (COVID-19 ) mRNA BNT-162b2 vax Brian TAPIA [facility] Comment on above: Result Comment: 2023: TPV70 11-30-2020 SARS-CoV-2 (COVID-19 ) mRNA BNT-162b2 vax Brian TAPIA [facility] Comment on above: Result Comment: 2023: TPV70 07-24-2020 influenza virus vacc ine, unspecified formulation Brian TAPIA [facility] 07-24-2020 Influenza, Seasonal, Quadrivalent, Adjuvanted Generic Provider [facility] 08-17-2019 influenza virus vacc ine, unspecified formulation Brian TAPIA [facility] 08-17-2019 pneumococcal polysaccharide vaccine, 23 valent Generic Provider [facility] 10-01-2018 zoster vaccine recombinant Generic Provider [facility] 07-09-2018 influenza virus vacc ine, unspecified formulation Brian TAPIA [facility] 07-09-2018 zoster vaccine recombinant Generic Provider [facility] 07-24-2017 influenza virus vacc ine, unspecified formulation Brian TAPIA [facility] 03-04-2013 zoster vaccine, live Generic Provide r [facility] Payers Date Payer Category Payer Private Health Insurance [employer] [place] [employer] [place] [employer] [id number] 2022-Present [address] [place] [address] [id number] 2022 Self-pay 2022 Unknown [id number] 2020 Medicare [id number] 2015 Medicare MEDICARE MEDICAR E PART B [id number] 2015-[place] [address] Medicare [id number] 1959 Medicare [id number] 1959 Private Health Insurance [id number] 1950 Unknown [id number] 1949 Unknown [id number] 1949 Unknown [id number] 1949 Unknown [id number] 1949 Unknown [id number] 1949 Unknown [id number] 1949 Unknown [id number] 1950 Unknown [id number] Medicare Medicare [id number] Unknown [employer] [id number] Unknown [id number] Social History Date Type Detail Facility Start: 08-01-2022 End: 12-04-2023 Tobacco smoking status Ex-smoker (finding) [facility] Comment on above: Quit 40 + years ago Start: 09-23-2023 Sex Assigned At Male [facility] Start: 1950 Sex Assigned At Male F [facility] Start: 09-12-2023 Tobacco smoking stat us SCIS Never smoked tobacco [facility] Start: 09-12-2023 Tobacco use and exposure Smokeless tobacco non-user [facility] Start: 09-23-2023 Alcohol intake Lifetime non-d alex (finding) [facility] Start: 09-23-2023 History of Social function [facility] Start: 09-12-2023 Alcohol Comment caffeine: 1-2 cups per day hot chocolate [facility] Start: 1950 Sex Assigned At Not on file [facility] Tobacco smoking status Never [facility] Comment on above: Quit 40 + years ago Functional Status Date Assessment Result Facility 12-04-2023 Functional Status N/A [facility] 08-01-2022 Functional Status N/A [facility] Clinical Notes 08-01-2022 to 12-04-2023 Note Date [...] treatment? Where to find more information [employer] [place] [employer]: www.cancer.org [employer]: www.auanet.org Contact a health care [...] provider. Document Revised: 04/07/2022 Document Reviewed: 04/07/2022 [employer] Patient Education 2022 BATS. Follow Up Care 12/01/2022 12:39:52 With:MARVEL ELLIS, Brian Cartagena, URL Address: [facility] [address] [place] [address] [phone] When:Within 1 Year(s) Comments:w/ PSA [facility] 12-01-2022 Hospital Discharge instructions Patient Education 12/01/2022 [...] one of these risk factors: ?Being of -[place] descent. ?Having a family history of prostate [...] you: Are older than age 55. Are -[place]. Have a father, brother, or uncle who [...] 07/23/2018 Document Revised: 09/24/2018 Document Reviewed: 07/23/2018 [employer] Patient Education 2020 BATS. Follow Up Care 10/29/2022 15:01:27 With:MARVEL ELLIS, Brian R, URL Address: [facility] [address] [place] [address]- [phone] When:12/01/2023 Comments:PSA [facility] [place] 11-11-2022 Hospital Discharge instructions Patient [...] for your post-operative appointment in 1-2 weeks [phone] or [phone] Follow Up Care 10/29/2022 14:59:58 With:Brian TAPIA Address: [facility] [address] [place], [place] [address]- Business (1) When:11/25/2022 10:30:48 [facility] 08-01-2022 Hospital Discharge instructions Patient Education 08/01/2022 [...] one of these risk factors: ?Being of -[place] descent. ?Having a family history of prostate [...] you: Are older than age 55. Are -[place]. Have a father, brother, or uncle who [...] 07/23/2018 Document Revised: 09/24/2018 Document Reviewed: 07/23/2018 [employer] Patient Education 2020 BATS. Follow Up Care 06/28/2021 10:33:47 With:Brian TAPIA MD, URL Address: [address] [place] [address]- When: Unknown [facility] Evaluation + Plan note No data available for this section [facility] Evaluation + Plan note Future Appointments Appointment Date:12/01/2022 10:45:00 AM Scheduled Provider:Brian TAPIA MD Location:[facility] Appointment Type:URO Office Visit Diagnostic Tests PendingProstate Histology ([facility]) 11/11/22Prostate Histology ([facility]) 11/11/22 [facility] Evaluation + Plan note Future Appointments Appointment Date:12/01/2022 10:45:00 AM Scheduled Provider:Brian TAPIA MD Location:[facility] Appointment Type:URO Office Visit [facility] Evaluation + Plan note Future Appointments Appointment Date:12/04/2023 08:30:00 AM Scheduled Provider:Brian TAPIA MD Location:[facility] Appointment Type:URO Office Visit Diagnostic Tests PendingPSA Total 12/01/22 [facility] Evaluation + Plan note Future Appointments Appointment Date:12/09/2024 08:00:00 AM Scheduled Provider:Brian TAPIA MD [facility] Appoint[facility] Type:URO Office Visit Diagnostic Tests PendingPSA Total 12/04/23 [facility] Evaluation note No assessment inform ation available [facility] Work Phone: Hospital Discharge instructions No data available for this section [facility] [place] note No data available for this section [facility] [place] Summary Purpose Family History No Family History Records FoundNo Family History Records FoundNo Family History Records FoundNo Family History Records Found No data available for this section No Family History Records FoundNo Family History Records Found Advance Directives No [...] section and content) DATE CREATED AUTHOR 10/20/2018 [facility] DATE CREATED AUTHOR AUTHOR'S ORGANIZ ATION 08/18/2022 [facility] DATE CREATED AUTHOR AUTHOR'S ORGANIZ ATION 08/19/2022 [facility] dical Specialist DATE CREATED AUTHOR AUTHOR'S ORGANIZ ATION 03/08/2023 [facility] DATE CREATED AUTHOR AUTHOR'S ORGANIZ ATION 12/05/2023 [facility] DATE CREATED AUTHOR AUTHOR'S ORGANIZ ATION 03/18/2024 [facility] dical Specialists [facility] Patient Care team informatio n (unrecognized section and content) Team Status: Inactive Member Role Status Dates Brian Tapia MD Attending Provider Active Zoey Latham DO Primary Care Provider Active Team Status: Active Member Role Status Dates Zoey Latham DO Primary Care Provider Active [employer] Floor Tech Relationship Specialty Start Date End Date Zoey Latham DO [address] [place] [address] PCP - ACO Reach 03/19/23 Zoey Latham DO [address] [place] [address] PCP - General Internal Medicine 03/03/23 Goals [...] BE BASED ON THE PRIMARY CLINICAL RECORDS. [facility] [employer] [facility]. provides no warranty or guarantee of the accuracy or completeness of information in this document.
[2024-09-15 06:45] LABS: Basophils Absolute Auto 0.1 10^3/uL (0.0-0.1); Basophils Percent Auto 0.6 % (0.2-2.0); Eosinophils Absolute Auto 0.3 10^3/uL (0.0-0.7); Eosinophils Percent Auto 2.8 % (0.9-7.0); Hematocrit 48.3 % (42.0-54.0); Hemoglobin 16.4 g/dL (14.0-18.0); Immature Granulocytes Abs Auto 0.02 10^3/uL (0.00-0.03); Immature Granulocytes Pct Auto 0.2 % (0.0-0.5); Lymphocytes Absolute Auto 2.4 10^3/uL (1.2-3.8); Lymphocytes Percent Auto 27.5 % (20.5-60.0); Mean Corpuscular Hemoglobin 30.5 pg (25.9-34.0); Mean Corpuscular Volume 89.9 fL (80.0-94.0); Mean Platelet Volume 8.4 fL (9.5-13.5); Monocytes Absolute Auto 0.7 10^3/uL (0.3-0.8); Monocytes Percent Auto 7.8 % (1.7-12.0); Neutrophils Absolute Auto 5.4 10^3/uL (1.4-6.5); Neutrophils Percent Auto 61.1 % (43.0-75.0); Platelet Count 332 10^3/uL (150-450); Red Blood Count 5.37 10^6/uL (4.70-6.10); Red Cell Distribution Width 12.7 % (11.0-15.0); White Blood Count 8.8 10^3/uL (4.0-11.0)
[2024-09-15 07:38] LABS: Alanine Aminotransferase 27 U/L (16-63); Albumin Globulin Ratio 0.9; Albumin Level 3.5 g/dL (3.4-5.0); Alkaline Phosphatase 80 U/L (46-116); Anion Gap 12.3; Aspartate Amino Transferase 20 U/L (15-37); BUN Creatinine Ratio 12.9; Bilirubin Total 0.6 mg/dL (0.2-1.0); Calcium 8.9 mg/dL (8.5-10.1); Carbon Dioxide 28.5 mmol/L (21.0-32.0); Chloride 104 mmol/L (98-107); Chol HDL Ratio 3.5; Cholesterol 183 mg/dL (<=200); Estimated GFR (African America 60 (>=60 mL/min/1.73m^2); Estimated GFR (Non-African Ame 49 (>=60 mL/min/1.73m^2); Globulin 3.7 g/dL; Glucose 106 mg/dL (74-106); HDL Cholesterol 53 mg/dL (40-60); LDL Cholesterol Calculated 114.8 mg/dL; Potassium 3.8 mmol/L (3.5-5.1); Sodium 141 mmol/L (136-145); Thyroid Stimulating Hormone 2.343 uIU/mL (0.358-3.740); Total Protein 7.2 g/dL (6.4-8.2); Triglycerides 76 mg/dL (<=150); VLDL CHOLESTEROL 15.2 mg/dL
== END 2024-09-15 06:33 | disposition home or self-care (01) ==
LOC: LAB 06:33
PROVIDERS: PCP Internal Medicine; Visit Provider Nurse Practitioner Adult Health
DX: E78.2 Mixed hyperlipidemia (principal); I10 Essential (primary) hypertension; Z51.81 Encounter for therapeutic drug level monitoring
CPT/HCPCS: 36415; 80053; 80061; 84443; 85025

== ENCOUNTER 2024-11-25 06:32 | Outpatient (OUT) | payer MEDICARE, OTHER, SELFPAY ==
--- OUTSIDE RECORDS SUMMARY | 2024-11-25 06:34 | XMS_ITS | CCD ---
Author Organization [facility] ion Partnership [facility] Care Team Providers Care Corrections Cadet Name Role Phone BRIAN TAPIA Unavailable ANAYELI Szymanski Primary Care Physician MD Brian Tapia Attending Provider [phone] DO Zoey Latham Primary Care Provider Zoey [...] GREER Consulting Unavailable Zoey Latham DO Unavailable Zoey Latham DO Primary Care Provider Brian TAPIA Attending Brian Villarreal Attending Unavailable Zoey LOPEZ Attending Unavailable ZOEY LATHAM Attending Unavailable ZOEY LATHAM Referring Unavailable ZOEY LATHAM Attending Unavailable ZOEY LATHAM Referring Unavailable Medications Current Medications Medication Drug Class(es) Dates Sig (Normalized) Sig (Original) acetaminophen 325 mg / HYDROcodone bitartrate 7.5 mg oral tablet (2 sources) Opioid Agonist Start: 10-29-2022 take 1 tablet by mouth once, then take 1 tablet by mouth every hour [place] 325 mg-7.5 mg oral tablet 1 tab(s), Oral, Once, 1 tab(s), Refill(s) 0, Take 1 hour prior to procedure. Don't drive or operate machinery while taking this medication., [facility]/pharmacy #[id number], 182, cm, 08/01/22 11:50:00 EDT, Height/Length Dosing, 93.2, kg, 08/01/22 11:50:00 EDT, We... Start Date: 10/29/22 Status: Ordered amLODIPine 10 mg oral tablet (6 sources) Dihydropyridine Calcium Channel Osbaldo Start: 11-19-2023 take 1 tablet by mouth once daily amLODIPine (Norvasc) 10 MG tablet Indications: Essential (primary) hypertension (CMS/HCC) TAKE 1 TABLET BY MOUTH ONCE EVERY NIGHT 90 tablet 3 11/19/2023 Active aspirin 81 mg oral tablet (10 sources) Platelet Aggregation Inhibitor, Nonsteroidal Anti-inflammatory Drug Start: 03-23-2020 take 81 mg by mouth once daily aspirin 81 mg, Oral, Daily, Refills(s) 0 Start Date: 03/23/20 Status: Ordered End: 09-21-2024 aspirin 81 MG EC tablet Take by mouth Daily. 09/21/2024 Discontinued Maxidex (5 sources) Corticosteroid Start: 10-14-2019 Maxidex Eye-Both, QID, Refill(s) 0 Start Date: 10/14/19 Status: Ordered diclofenac sodium 0.01 mg/mg topical gel (5 sources) Nonsteroidal Anti-inflammatory Drug Start: 08-17-2022 diclofenac sodium 1 % gel as directed Externally up to 4 times per day for 14 day(s) 08/17/2022 Active hydroCHLOROthiazide 25 mg / triamterene 37.5 mg oral tablet (4 sources) Potassium-sparing Diuretic, Thiazide Diuretic Start: 06-28-2021 hydrochlorothiaz eufemia-triamterene 25 mg-37.5 mg Tab 1 tab(s), Daily, Refill(s) 0 Start Date: 06/28/21 Status: Ordered 24 hr metoprolol succinate 25 mg extended release oral tablet (6 sources) beta-Adrenergic Osbaldo Start: 01-12-2024 take 1 tablet by mouth once daily metoprolol succinate XL (Toprol-XL) 25 MG 24 hr tablet Indications: Essential hypertension (CMS/HCC) TAKE 1 TABLET BY MOUTH EVERY DAY FOR 90 DAYS 90 tablet 3 01/12/2024 Active Start: 12-04-2023 metoprolol Ref ills(s) 0 Start Date: 12/04/23 Status: Ordered take 1 tablet by carl th once daily metoprolol succinate XL (Toprol-XL) 25 MG 24 hr tablet Take by mouth Daily. 0 Active simvastatin 40 mg oral tablet (10 sources) HMG-CoA Reductase Inhibitor Start: 08-15-2024 take 1 tablet by mouth once daily simvastatin (Zocor) 40 MG tablet Indications: Pure hypercholesterolemia, unspecified (CMS/HCC) TAKE 1 TABLET BY MOUTH EVERY DAY AT NIGHT 90 tablet 3 08/15/2024 Active Start: 08-24-2023 take 1 tablet by carl th once daily simvastatin (Zocor) 40 MG tablet Indications: Pure hypercholesterolemia, unspecified (CMS/HCC) TAKE 1 TABLET BY MOUTH EVERY NIGHT 90 tablet 3 08/24/2023 Active Start: 10-14-2019 simvastatin Or al, Refills(s) 0 Start Date: 10/14/19 Status: Ordered tamsulosin hydrochloride 0.4 mg oral capsule (10 sources) alpha-Adrenergic Osbaldo Start: 08-01-2022 take 1 capsule by mouth every other day Flomax 0.4 mg Cap 0.4 mg = 1 cap(s), Oral, Every other day, # 45 cap(s), Refills(s) 11, Pharmacy: [facility]/pharmacy #[id number], 182, cm, 08/01/22 11:50:00 EDT, Height/Length Dosing, 93.2, kg, 08/01/22 11:50:00 EDT, Weight Dosing Start Date: 08/01/22 Status: Ordered take 1 capsule by mo [facility] every twenty-four hours in the morning tamsulosin (Flomax) 0.4 MG 24 hr capsule Take 1 capsule by mouth in the morning. Active Problems Active Problems Problem Classification Problem Date Documented Date Episodic/Chronic Chronic kidney disease (11 sources) Chronic kidney disease stage 3A ; Translations: [Stage 3a chronic kidney disease (HCC)] Onset: 09-09-2023 Resolved: 09-21-2024 09-09-2023 Chronic Chronic kidney disease (1 source) Chronic kidney disease; Translations: [CHRONIC KIDNEY DISEASE STAGE 3A] Onset: 03-07-2023 Diabetes mellitus without complication (2 sources) Prediabetes; Translations: [Impaired fasting glucose] Onset: 09-08-2022 Episodic Disorders of lipid metabolism (17 sources) Hypercholesterolemia; Translations: [Pure hypercholesterolemia, unspecified] Onset: 05-07-2022 04-10-2019 Chronic Essential hypertension (16 sources) Hypertensive disorder; Translations: [Essential (primary) hypertension] Onset: 09-05-2022 04-10-2019 Chronic Hyperplasia of prostate (19 sources) Benign prostatic hypertrophy with outflow obstruction; [...] prostatitis; Translations: [Chronic prostatitis] Onset: 12-01-2022 Chronic Osteoarthritis (4 sources) Primary gonarthrosis, bilateral; Translations: [Bilateral primary osteoarthritis of knee] Onset: 09-21-2024 09-21-2024 Chronic Other connective tissue disease (4 sources) History of repair of hip joint; Translations: [Presence of left artificial hip joint] Onset: 09-21-2024 09-21-2024 Chronic Other nutritional; endocrine; and metabolic disorders (5 sources) Body mass index 25-29 - overweight 03-09-2020 Episodic Other screening for suspected conditions (not mental disorders or infectious disease) (17 sources) Raised prostate specific antigen; Translations: [Elevated prostate specific antigen [PSA]] Onset: 08-01-2022 Episodic Unclassified (1 source) Unknown / UNK(Unknown) Onset: 10-18-2018 Past or Other Problems Problem Classification Problem Date Documented Da te Episodic/Chronic Other nutritional; endocrine; and metabolic disorders (5 sources) Overweight in adulthood with body mass index of 25 or more but less than 30; Translations: [Body mass index (BMI) 28.0-28.9, adult] Onset: 09-23-2023 Resolved: 03-16-2024 09-23-2023 Episodic Results Test Name Value Interpretation Reference Range Facility ALL CBC WITH AUTO DIFFon BASOPHILS ABSOLUTE AUTO 0.1 [facility] Basophils/100 WBC (Bld) 0.6 % 0.2 - 2.0 % [facility] Eosinophils/100 WBC (Bld) 2.8 % 0.9 - 7.0 % [facility] Erythrocyte distribution width (RBC) [Ratio] 12.7 % 11.0 - 15.0 % [facility] Hematocrit (Bld) [Volume fraction] 48.3 % 42.0 - 54.0 % [facility] Hemoglobin (Bld) [Mass/Vol] 16.4 g/dL 14.0 - 18.0 g/dL [facility] IMMATURE GRANULOCYTES ABS AUTO 0.02 [facility] Immature granulocytes/100 WBC (Bld) 0.2 % 0.0 - 0.5 % [facility] Interpretation and review of laboratory results Abnormal [facility] LYMPHOCYTES ABSOLUTE AUTO 2.4 [facility] Lymphocytes/100 WBC (Bld) 27.5 % 20.5 - 60.0 % [facility] MCH (RBC) [Entitic mass] 30.5 pg 25.9 - 34.0 pg [facility] MCHC (RBC) [Mass/Vol] 34 g/dL 29.9 - 35.2 g/dL [facility] MCV (RBC) [Entitic vol] 89.9 fL 80.0 - 94.0 fL [facility] MONOCYTES ABSOLUTE AUTO 0.7 [facility] Monocytes/100 WBC (Bld) 7.8 % 1.7 - 12.0 % [facility] NEUTROPHILS ABSOLUTE AUTO 5.4 [facility] Neutrophils/100 WBC (Bld) 61.1 % 43.0 - 75.0 % [facility] Platelet mean volume (Bld) [Entitic vol] 8.4 fL Low 9.5 - 13.5 fL [facility] EO # 0.3 [facility] PLT 332 [facility] RBC 5.37 [facility] WBC 8.8 [facility] Ambulatory Visit Summaryon 0 12-04-2023 Ambulatory Visit Summary AGUS ORTIZ :1950 Visit Date:12/04/2023 Ambulatory Visit Instructions Your Diagnosis Elevated PSA BPH with urinary obstruction Chronic prostatitis Your Care Team Attending Physician - MARVEL ELLIS, Brian Cartagena Primary Care Physician - ANAYELI GREER MD [...] [facility] [address] [place] [address]- [phone] Medications What How Much When Instructions Unchanged [...] exam ma (more content not included)... Normal [facility] Patient Educationon 12-04-19 Patient Education Oncology Prostate [...] Where to find more information ? [employer]: www.cancer.org ? [employer]: www.auanet.org Contact a health care [...] adds flu (more content not included)... Normal [facility] Urology Office/Clinic Noteon 12-04-2023 Urology Office/Clinic Note Chief Complaint 1yr PSA HPI Staff 1 year with PSA Dx: BPH with urinary obstruction ([place] 09/2017), elevated PSA and chronic prostatitis. PSA: [...] 09/2018 - PI-RADS 2. Prostate MRI 08/13/22 [facility] - No evidence of prostate malignancy. Prostate [...] When Contact Information MARVEL ELLIS, Brian Cartagena, LINA In 1 year [facility] [address], [place] [address] [phone] Additional Instructions: w/ PSA Patient Education Prostate [...] virus vaccine, inactivated 08/10/2022 Recorded SARS-CoV-2 (COVID-19) [id number] 08/10/2022 Recorded influenza virus vaccine, inactivated 08/02/2021 Recorded SARS-CoV-2 (COVID-19) mRNA BNT-162b2 vax 08/02/2021 Recorded 2023-12-04: TPV70 SARS-CoV-2 (COVID-19) Ad26 vaccine 02/2021 Recorded unable to give exact dates SARS-CoV-2 (COVID-19) mRNA BNT-162b2 vax 12/21/2020 Recorded 2023-12-04: TPV70 SARS-CoV-2 (COVID-19) mRNA BNT-162b2 vax 11/30 (more content not included)... Normal [facility] Comment on above: Result Comment: Elec tronically Signed By: Brian TAPIA MD\.br\Date and Time Signed: 12/04/23 09:26 EST\.br\Electronically Co-Signed By: Taryn Casarez\.br\Date and Time Co-Signed: 12/04/23 09:24 EST Lab Reportson 11-30-2023 Lab Reports [id number]#1.00TIFF Normal [facility] MHPT PSA, DIAGNOSTICon 11-27 Interpretation and review of laboratory results Abnormal [facility] PROSTATE SPECIFIC ANTIGEN DX 12.27 ng/mL High NINF - 4.00 ng/mL [facility] 09-16-2023 Consent [id number]#1.00TIFF Normal [facility] Consent [id number]#1.00TIFF Normal [facility] GLYCOHEMOGLOBIN A1Con 2022 ADA RECOMMENDATION SEE BELOW Normal [facility] Comment on above: Result Comment: ADA RECOMMENDED LIMIT 4.0 - 6.0 ADA THERAPEUTIC TARGET < 7.0 ACTION SUGGESTED > 7.0 Performed By: #### A 1C #### [facility] [address] [place] [address] Dr. Khari Meadows Glucose [Mass/Vol] 108 mg/dL Normal [facility] Comment on above: Performed By: #### A 1C #### [facility] [address] [place] [address] Dr. Khari Meadows HbA1c (Bld) [Mass fraction] 5.4 % Normal 4.5-6.2 [facility] Comment on above: Performed By: #### A 1C #### [facility] [address] [place] [address] Dr. Khari Meadows MICROALBUMIN, RAND URon 05 mALB <1.3 Normal <=30.0 [facility] Comment on above: Performed By: #### M ALBR #### [facility] [address] [place] [address] Dr. Khari Meadows PROF CHEM 8 (BAS METB)on Anion gap [Moles/Vol] 10.9 mmol/L Normal [facility] Comment on above: Performed By: #### B MP #### [facility] [address] [place] [address] Dr. Khari Meadows Calcium [Mass/Vol] 9.0 mg/dL Normal 8.5-10.1 [facility] Comment on above: Performed By: #### B MP #### [facility] [address] [place] [address] Dr. Khari Meadows Chloride [Moles/Vol] 105 mmol/L Normal 98-107 [facility] Comment on above: Performed By: #### B MP #### [facility] [address] [place] [address] Dr. Khari Meadows CO2 [Moles/Vol] 27.7 mmol/L Normal 21.0-32.0 [facility] Comment on above: Performed By: #### B MP #### [facility] [address] [place] [address] Dr. Khari Meadows Creatinine [Mass/Vol] 1.24 mg/dL Normal 0.70-1.30 [facility] Comment on above: Performed By: #### B MP #### [facility] [address] [place] [address] Dr. Khari Meadows EGFR-AF SOUTH AFRICAN >60 Normal >=60 [facility] Comment on above: Performed By: #### B MP #### [facility] [address] [place] [address] Dr. Khari Meadows EGFR-NON AF SOUTH AFRICAN 57 mL/min/1.73m2 Critically low >=60 [facility] Comment on above: Performed By: #### B MP #### [facility] [address] [place] [address] Dr. Khari Meadows Glucose [Mass/Vol] 95 mg/dL Normal 74-106 [facility] Comment on above: Performed By: #### B MP #### [facility] [address] [place] [address] Dr. Khari Meadows Potassium [Moles/Vol] 3.6 mmol/L Normal 3.5-5.1 [facility] Comment on above: Performed By: #### B MP #### [facility] [address] [place] [address] Dr. Khari Meadows Sodium [Moles/Vol] 140 mmol/L Normal 136-145 [facility] Comment on above: Performed By: #### B MP #### [facility] [address] [place] [address] Dr. Khari Meadows Urea nitrogen [Mass/Vol] 26.0 mg/dL Critically high 7.0-18.0 [facility] Comment on above: Performed By: #### B MP #### [facility] [address] [place] [address] Dr. Khari Meadows Urea nitrogen/Creatinine [Mass ratio] 21.0 mg/mg Normal [facility] Comment on above: Performed By: #### B MP #### [facility] [address] [place] [address] Dr. Khari Meadows UA RANDOMon 03-03-2023 Bilirubin Ql (U) Negative Normal NEGATIVE [facility] Comment on above: Performed By: #### U A #### [facility] [address] [place] [address] Dr. Khari Meadows Clarity (U) CLEAR Normal CLEAR [facility] Comment on above: Performed By: #### U A #### [facility] [address] [place] [address] Dr. Khari Meadows Color (U) LT. YELLOW Normal YELLOW [facility] Comment on above: Performed By: #### U A #### [facility] [address] [place] [address] Dr. Khari Meadows Glucose Ql (U) Negative Normal NEGATIVE [facility] Comment on above: Performed By: #### U A #### [facility] [address] [place] [address] Dr. Khari Meadows Hemoglobin Ql (U) Negative Normal NEGATIVE [facility] Comment on above: Performed By: #### U A #### [facility] [address] [place] [address] Dr. Khari Meadows Ketones Ql (U) Negative Normal NEGATIVE [facility] Comment on above: Performed By: #### U A #### [facility] [address] [place] [address] Dr. Khari Meadows LEUKOCYTES Negative Normal NEGATIVE [facility] Comment on above: Performed By: #### U A #### [facility] [address] [place] [address] Dr. Khari Meadows Nitrite Ql (U) Negative Normal NEGATIVE [facility] Comment on above: Performed By: #### U A #### [facility] [address] [place] [address] Dr. Khari Meadows pH (U) 6.0 [pH] Normal 5-9 [facility] Comment on above: Performed By: #### U A #### [facility] [address] [place] [address] Dr. Khari Meadows SPEC GRAVITY 1.025 Normal 1.005-<=1. 025 [facility] Comment on above: Performed By: #### U A #### [facility] [address] [address] [address] Khari Meadows UA PROTEIN Negative Normal NEGATIVE/ TRACE [facility] Comment on above: Performed By: #### U A #### [facility] [address] [address] [address] Khari Meadows Urobilinogen Qn (U) 0.2 {Yaneth'U}/dL Normal 0.2 - 1. 0 [facility] Comment on above: Performed By: #### U A #### [facility] [address] [address] [address] Khari Meadows LIPID PROFILEon 09-05-2022 CHOL-HDL RATIO NORM SEE BELOW Normal [facility] Comment on above: Result Comment: 3.3 - 4.4 LOW RISK 4.4 - 7.1 AVERAGE RISK 7.1 - 11.0 MODERATE RISK >11.0 HIGH RISK Performed By: #### L IPID, CMP #### [facility] [address] [place] [address] Dr. Khari Meadows Cholesterol [Mass/Vol] 156 mg/dL Normal <=200 [facility] Comment on above: Performed By: #### L IPID, CMP #### [facility] [address] [place] [address] Dr. Khari Meadows Cholesterol in HDL [Mass/Vol] 45 mg/dL Normal 40-60 [facility] Comment on above: Performed By: #### L IPID, CMP #### [facility] [address] [address] [address] Khari Meadows Cholesterol in LDL [Mass/Vol] 99.6 mg/dL Normal [facility] Comment on above: Performed By: #### L IPID, CMP #### [facility] [address] [address] [address] Khari Meadows Cholesterol.total/C holesterol in HDL [Mass ratio] 3.5 {ratio} Normal [facility] Comment on above: Performed By: #### L IPID, CMP #### [facility] [address] [address] [address] Khari Meadows HDL NORMAL > or = 60 mg/dl - LO W CARDIOVASCULAR RISK <40 mg/dl - HIGH CARDIOVASCULAR RISK Normal [facility] Comment on above: Performed By: #### L IPID, CMP #### [facility] [address] [place] [address] Dr. Khari Meadows LDL CALC NORMAL SEE BELOW Normal [facility] Comment on above: Result Comment: <100 mg/dl OPTIMAL 100 - 129 mg/dl NEAR OR ABOVE OPTIMAL 130 - 159 mg/dl BORDERLINE HIGH 160 - 189 mg/dl HIGH >190 mg/dl VERY HIGH Performed By: #### L IPID, CMP #### [facility] [address] [place] [address] Dr. Khari Meadows Triglyceride [Mass/Vol] 57 mg/dL Normal <=150 [facility] Comment on above: Performed By: #### L IPID, CMP #### [facility] [address] [place] [address] Dr. Khari Meadows VLDL CALC 11.4 mg/dL Normal [facility] Comment on above: Performed By: #### L IPID, CMP #### [facility] [address] [place] [address] Dr. Khari Meadows PROF 14(COMP METB)on 022 Albumin [Mass/Vol] 3.6 g/dL Normal 3.4-5.0 [facility] Comment on above: Performed By: #### L IPID, CMP #### [facility] [address] [place] [address] Dr. Khari Meadows Albumin/Globulin [Mass ratio] 1.0 {ratio} Normal [facility] Comment on above: Performed By: #### L IPID, CMP #### [facility] [address] [place] [address] Dr. Khari Meadows ALP [Catalytic activity/Vol] 73 U/L Normal 46-116 [facility] Comment on above: Performed By: #### L IPID, CMP #### [facility] [address] [place] [address] Dr. Khari Meadows ALT [Catalytic activity/Vol] 30 U/L Normal 16-63 [facility] Comment on above: Performed By: #### L IPID, CMP #### [facility] [address] [address] [address] Khari Meadows Anion gap [Moles/Vol] 9.4 mmol/L Normal [facility] Comment on above: Performed By: #### L IPID, CMP #### [facility] [address] [address] [address] Khari Meadows AST [Catalytic activity/Vol] 20 U/L Normal 15-37 [facility] Comment on above: Performed By: #### L IPID, CMP #### [facility] [address] [place] [address] Dr. Khari Meadows Bilirubin [Mass/Vol] 0.4 mg/dL Normal 0.2-1.0 [facility] Comment on above: Performed By: #### L IPID, CMP #### [facility] [address] [place] [address] Dr. Khari Meadows Calcium [Mass/Vol] 9.1 mg/dL Normal 8.5-10.1 [facility] Comment on above: Performed By: #### L IPID, CMP #### [facility] [address] [place] [address] Dr. Khari Meadows Chloride [Moles/Vol] 105 mmol/L Normal 98-107 [facility] Comment on above: Performed By: #### L IPID, CMP #### [facility] [address] [place] [address] Dr. Khari Meadows CO2 [Moles/Vol] 29.9 mmol/L Normal 21.0-32.0 [facility] Comment on above: Performed By: #### L IPID, CMP #### [facility] [address] [place] [address] Dr. Khari Meadows Creatinine [Mass/Vol] 1.27 mg/dL Normal 0.70-1.30 [facility] Comment on above: Performed By: #### L IPID, CMP #### [facility] [address] [place] [address] Dr. Khari Meadows EGFR-AF SOU[place] AFR[place] >60 Normal >=60 [facility] Comment on above: Performed By: #### L IPID, CMP #### [facility] [address] [address] [address] Khari Meadows EGFR-NON AF SOUTH AFRICAN 56 mL/min/1.73m2 Critically low >=60 [facility] Comment on above: Performed By: #### L IPID, CMP #### [facility] [address] [address] [address] Khari Meadows Globulin (S) [Mass/Vol] 3.6 g/dL Normal [facility] Comment on above: Performed By: #### L IPID, CMP #### [facility] [address] [address] [address] Khari Meadows Glucose [Mass/Vol] 112 mg/dL Critically high 74-106 [facility] Comment on above: Performed By: #### L IPID, CMP #### [facility] [address] [place] [address] Dr. Khari Meadows Potassium [Moles/Vol] 5.3 mmol/L Critically high 3.5-5.1 [facility] Comment on above: Performed By: #### L IPID, CMP #### [facility] [address] [address] [address] Khari Meadows Protein [Mass/Vol] 7.2 g/dL Normal 6.4-8.2 [facility] Comment on above: Performed By: #### L IPID, CMP #### [facility] [address] [address] [address] Khari Meadows Sodium [Moles/Vol] 139 mmol/L Normal 136-145 [facility] Comment on above: Performed By: #### L IPID, CMP #### [facility] [address] [address] [address] Khari Meadows Urea nitrogen [Mass/Vol] 30.0 mg/dL Critically high 7.0-18.0 [facility] Comment on above: Performed By: #### L IPID, CMP #### [facility] [address] [address] [address] Khari Meadows Urea nitrogen/Creatinine [Mass ratio] 23.6 mg/mg Normal [facility] Comment on above: Performed By: #### L IPID, CMP #### [facility] [address] [address] [address] Khari Meadows XR Ankle Complete Left*on [...] by RICHARD LARA on 08/17/2022 1407 Normal [facility] XR Foot Complete Left*on XR Foot Complete [...] by RICHARD LARA on 08/17/2022 1408 Normal [facility] MR prostate wo/w conon 08-14 MR prostate wo/w con [facility] [place] [address] [place] [address] MRI Report Signed Patient: Agus Ortiz MR#: [id number] 23 : 1950 Acct:[id number] Age/Sex: 71 / M ADM Date: 08/13/22 Loc: MR Room: Type: [facility] Attending Dr: Brian Tapia MD Copies [...] changes. Impression dictated by: King Rg Jr., D.OGris08/14/2022 9:33 AM Dictation Location: [place] [address] Transcribed By: [facility] 08/14/22932 Dictated By: King Rg Jr, DO 08/14/22926 Signed By: 08/14/22932 Normal [facility] Creatinine (Bld) [Mass/Vol]O rdered By: Brian Tapia on 08-13-2022 Creatinine [Mass/Vol] 1.3 mg/dL 0.6-1.3 [facility] [facility] Comment on above: ER/ESD physician is notified/shown all ISTAT results.Critical values may be confirmed by laboratory testing ifdeemed necessary by ER attending doctor. ISTAT XRchina CREon 08-13-2022 Creatinine [Mass/Vol] 1.3 mg/dL Normal 0.6-1.3 [facility] Comment on above: Result Comment: ER/E SD physician is notified/shown all ISTAT results. Critical values may be confirmed by laboratory testing if deemed necessary by ER attending doctor. Performed By: #### I SCRE #### [address] Point of Care testing , ISTAT GFR ( > 60 Normal [facility] Comment on above: Result Comment: GFR estimated reference range: According to KDOQI guidelines, <60 ml/min/1.73m2 is sufficient to diagnose a patient with chronic kidney disease. PERFORMED BY: [place] [address] PATHOLOGIST FAC ENGINEER MELVIN DANG M.D. Performed By: #### I SCRE #### [address] [place] [address] [facility] Point of Care testing , ISTAT GFR (Non- Am 54 Normal [facility] Comment on above: Performed By: #### I SCRE #### [facility] [address] Point of Care testing , No Panel InformationOrdered By: Brian Tapia on 08-13-2022 POC Estimated GFR > 60 [facility] Comment on above: GFR estimated refere nce range: According to KDOQI guidelines, <60 ml/min/1.73m2 is sufficient to diagnose a patient with chronic kidney disease. POC Estimated GFR Non- Amer 54 [facility] GLYCOHEMOGLOBIN A1Con 2021 ADA RECOMMENDATION SEE BELOW Normal [facility] Comment on above: Result Comment: ADA RECOMMENDED LIMIT 4.0 - 6.0 ADA THERAPEUTIC TARGET < 7.0 ACTION SUGGESTED > 7.0 Performed By: #### A 1C #### [facility] [address] [address] [address] Khari Meadows Glucose [Mass/Vol] 111 mg/dL Normal [facility] Comment on above: Performed By: #### A 1C #### [facility] [address] [address] [address] Khari Meadows HbA1c (Bld) [Mass fraction] 5.5 % Normal 4.5-6.2 [facility] Comment on above: Performed By: #### A 1C #### [facility] [address] [address] [address] Khari Meadows MICROALBUMIN, RAND URon 04-25 mALB <1.3 Normal <=30.0 [facility] Comment on above: Performed By: #### M ALBR #### [facility] [address] [address] [address] Khari Meadows PROF CHEM 8 (BAS METB)on Anion gap [Moles/Vol] 10.1 mmol/L Normal [facility] Comment on above: Performed By: #### B MP #### [facility] [address] [place] [address] Dr. Khari Meadows Calcium [Mass/Vol] 9.2 mg/dL Normal 8.5-10.1 [facility] Comment on above: Performed By: #### B MP #### [facility] [address] [address] [address] Khari Meadows Chloride [Moles/Vol] 104 mmol/L Normal 98-107 [facility] Comment on above: Performed By: #### B MP #### [facility] [address] [address] [address] Khari Meadows CO2 [Moles/Vol] 27.6 mmol/L Normal 21.0-32.0 [facility] Comment on above: Performed By: #### B MP #### [facility] [address] [place] [address] Dr. Khari Meadows Creatinine [Mass/Vol] 1.47 mg/dL Critically high 0.70-1.30 [facility] Comment on above: Performed By: #### B MP #### [facility] [address] [address] [address] Khari Meadows EGFR-AF SOUTH AFRICAN 57 mL/min/1.73m2 Critically low >=60 [facility] Comment on above: Performed By: #### B MP #### [facility] [address] [place] [address] Dr. Khari Meadows EGFR-NON AF SOUTH AFRICAN 47 mL/min/1.73m2 Critically low >=60 [facility] Comment on above: Performed By: #### B MP #### [facility] [address] [address] [address] Khari Meadows Glucose [Mass/Vol] 105 mg/dL Normal 74-106 [facility] Comment on above: Performed By: #### B MP #### [facility] [address] [address] [address] Khari Meadows Potassium [Moles/Vol] 3.7 mmol/L Normal 3.5-5.1 [facility] Comment on above: Performed By: #### B MP #### [facility] [address] [address] [address] Khari Meadows Sodium [Moles/Vol] 138 mmol/L Normal 136-145 [facility] Comment on above: Performed By: #### B MP #### [facility] [address] [address] [address] Khari Meadows Urea nitrogen [Mass/Vol] 34.0 mg/dL Critically high 7.0-18.0 [facility] Comment on above: Performed By: #### B MP #### [facility] [id number] Khari Meadows Urea nitrogen/Creatinine [Mass ratio] 23.1 mg/mg Normal [facility] Comment on above: Performed By: #### B MP #### [facility] [address] [address] [address] Khari Meadows ALLIED HEALTHon 10-18-2018 ALLIED HEALTH HNO ID: [id number] thor: Shawn Martinez (Rt) Darell Guido: (none)Author Type: TechnicianType: Allied HealthFiled: 10/18/2018 2:01 PMNote Text: Radiology Service Progress NotePATIENT NAME: Agus YooN: [id number] OF SERVICE: October 18, 2018TIME: 1:58 PMPATIENT IDENTITY VERIFICATION COMPLETED USING TWO (2) METHODS: Patientconfirmed name verbally and Date of .PATIENT GENDER DATA: MalePATIENT RELEVANT IMPLANT DATA REVIEWED: YesCONTRAST INDUCED NEPHROPATHY RISK FACTORS: Patient age > 60 yearsCREATININE:Creatinine (POCT)Date Value Ref Range Vezpgi0410/18/2018 1.40 (A) 0.58 - 1.22 mg/dL Final eGFR-All Other Races (POCT)Date Value Ref Range Pwjeue1210/18/2018 50 mL/min/1.73 m2 Final eGFR- (POCT)Date Value Ref Range Cfnjtf9810/18/2018 >60 mL/min/1.73 m2 Final P.O.C.T. RESULTS: POC done: Yes, See Lab Tab October 18, 2018RADIOLOGIST NOTIFIED?: NoALLERGIES: Reviewed and unchangedCONTRAST ALLERGY: NO.PERIPHERAL IV ACCESS: Ambulatory: IV type: Existing peripheral IVutilized, Site assessment: Clean,Dry and Intact, Site dispositionDiscontinuedRADIOLO GY DEPARTMENT: MR; Exam(s) Completed: Body: ProstateSIGNED BY: Sandip Guevara 2017 1:58 PM [facility] MRI PROSTATE WO/W IVCONon Protein mass conc * * *Final Report* * *DATE OF EXAM: Oct 18 2018 2:47PM [facility] 0751 - MRI PROSTATE WO/W IVCON / [...] and coronal high resolution T2-WI with small znsjz-im-cnzy;Axial diffusion weighted images with multiple B-values and creation of ADC-maps;Dynamic contrast enhanced T1-weighted images through the prostate were also obtained before, during and after the administration of intravenous gadolinium. Subsequently, larger field of view 3D T1 weighted axial images were obtained through the pelvis.Prostate dimension, volume and pharmacokinetics were obtained using a semi-automated software ([employer]).M: MRPro_2Contrast: IV administration of 20 ml of [...] 18 2018 2:56PDictated by : YAN GARZA MDThis examination was interpreted and the report reviewed and electronically signed by: WESLEY VALERA MD on Oct 18 2018 5:14PM [id number] [facility] NURSING PROGon 10-18-2018 Protein mass conc HNO ID: [id number] thor: Aundrea (Rn) TIMOTHY Sauerervice: RadiologyAuthor Type: Registered NurseType: Nursing Progress NoteFiled: 10/18/2018 12:57 PMNote Text: Radiology Service Progress NotePATIENT NAME: Agus YooN: [id number] OF SERVICE: October 18, 2018TIME: 12:56 PMPATIENT [...] gauge.diffusicIV SITE APPEARANCE: Clean,Dry and IntactSIGNED BY: Delia Dubon 2017 12:56 PM [facility] Vital Signs Date Time Vital Sign Value Performing Clinician Faci lity 09-21-2024 09:50-0500 Body height 182.9 cm Zoey Latham DO Work Phone: [facility] 09-21-2024 09:50-0500 Body mass index (BMI) [Ratio] 27.8 kg/m2 Zoey Latham DO Work Phone: [facility] 09-21-2024 09:50-0500 Body weight 92.99 kg Zoey Latham DO Work Phone: [facility] 09-21-2024 09:50-0500 Diastolic blood pressure 78 mm[Hg] Zoey Latham DO Work Phone: [facility] 09-21-2024 09:50-0500 Heart rate 74 /min Zoey Latham DO Work Phone: [facility] 09-21-2024 09:50-0500 SaO2% (BldA) [Mass fraction] 97 % Zoey Latham DO Work Phone: [facility] 09-21-2024 09:50-0500 Systolic blood pressure 158 mm[Hg] Zoey Latham DO Work Phone: [facility] 12-04-2023 08:29-0500 Blood Pressure Location Brian TAPIA [facility] 12-04-2023 08:29-0500 Diastolic blood pressure 84 mm[Hg] Brian TAPIA [facility] 12-04-2023 08:29-0500 Heart rate 80 /min Brian TAPIA [facility] 12-04-2023 08:29-0500 Respiratory rate 16 /min Brian TAPIA [facility] 12-04-2023 08:29-0500 Systolic blood pressure 132 mm[Hg] Brian TAPIA [facility] 08-01-2022 11:43-0400 Blood Pressure Location Brian TAPIA [facility] 08-01-2022 11:43-0400 Diastolic blood pressure 84 mm[Hg] Brian TAPIA [facility] 08-01-2022 11:43-0400 Heart rate 60 /min Brian TAPIA [facility] 08-01-2022 11:43-0400 Respiratory rate 18 /min Brian TAPIA [facility] 08-01-2022 11:43-0400 Systolic blood pressure 175 mm[Hg] Brian TAPIA [facility] Encounters Encounter Date Encounter Type Care Provider Facility Start: 12-09-2024 ambulatory Brian TAPIA Facili ty:[facility] Start: 09-21-2024 End: 09-21-2024 Bamboo flowsheet Zoey Latham DO Work Phone: [facility] Start: 09-21-2024 End: 09-21-2024 Bamboo flowsheet Zoey Latham DO Work Phone: [facility] Start: 09-21-2024 End: 09-21-2024 Office outpatient visit 40 minutes Zoey Latham DO Work Phone: [facility] Comment on above: Essential hypertensi on (CMS/HCC) (Primary Dx); Stage 3a chronic kidney disease (HCC) (CMS/HCC); Mixed hyperlipidemia (CMS/HCC); Primary osteoarthritis of both knees; Benign prostatic hyperplasia with lower urinary tract symptoms, symptom details unspecified; Elevated PSA; History of left hip replacement Start: 09-21-2024 End: 09-21-2024 ambulatory ZOEY LATHAM Not Available Start: 09-15-2024 End: 09-15-2024 Clinisync Result Encounter Wisam Shearer MATERIAL CREW SUPERVISOR Work Phone: [facility] Unsolicited Start: 09-15-2024 End: 09-15-2024 Clinisync Result Encounter Wisam Martinez Manfred MATERIAL CREW SUPERVISOR Work Phone: [facility] Unsolicited Start: 03-16-2024 End: 03-16-2024 ambulatory ZOEY LATHAM Not Available Start: 12-04-2023 End: 12-05-2023 ambulatory Brian TAPIA Facility:[facility] Start: 12-04-2023 End: 12-04-2023 Patient encounter procedure Brian TAPIA [facility] Start: 11-27-2023 Clinisync Result Encounter Gen daniele External Data Provider [facility] Unsolicited Start: 11-27-2023 Clinisync Result Encounter Gen daniele External Data Provider [facility] Unsolicited Start: 09-16-2023 End: 09-17-2023 ambulatory Zoey LOPEZ Facility:[facility] Start: 03-03-2023 End: 03-04-[address] ZOEY LATHAM Facility:[facility] Start: 12-01-2022 End: 12-01-2022 Patient encounter procedure Brian TAPIA [facility] Start: 11-11-2022 End: 11-11-2022 Patient encounter procedure Brian TAPIA [facility] Start: 11-04-2022 End: 11-12-2022 Pre-admission assessment Brian TAPIA [facility] Start: 09-05-2022 End: 09-06-[address] ZOEY LATHAM Facility: Start: 08-13-2022 End: 08-13-2022 ambulatory Zoey Latham Facility:[facility] Start: 08-13-2022 End: 08-13-2022 ambulatory DO Zoey Latham Work Phone: [facility] Work Phone: Start: 08-13-2022 End: 08-13-2022 Patient encounter procedure DO Zoey Latham Work Phone: [facility] [place] Start: 08-01-2022 End: 08-01-2022 Patient encounter procedure Brian TAPIA [facility] Start: 07-03-2022 End: 07-04-[address] BRIAN TAPIA . Facility:[facility] Start: 05-06-2022 End: 05-07-[address] ZOEY LATHAM Facility:[facility] Start: 10-18-2018 Patient encounter procedure BRIAN TAPIA [facility] Procedures Date Procedure Procedure Detail Performing Clinician Start: 09-15-2024 ALL CBC WITH AUTO DIFF Wisam Shearer NP Work Phone: Start: 11-27-2023 MHPT PSA, DIAGNOSTIC LUMI [employer] External Data Provider Start: 11-11-2022 Transrectal biopsy o f prostate using ultrasound guidance Brian TAPIA Start: 07-03-[address] TEDDY LATHMA Comment on above: Performed By: #### P SAD #### [facility] [address] [place] [address] Dr. Khari Meadows Start: 04-03-2020 Transrectal biopsy [...] Activity Detail Author Start: 11-19-2024 Screening for malign ant neoplasm of colon [facility] Start: 09-21-2024 End: 09-21-2024 Patient encounter procedure [facility] Comment on above: Arrived Start: 03-16-2024 End: 03-16-2024 Patient encounter procedure 03/16/2024 9:15 AM EDT Office Visit [facility] [address] [place] [address] Zoey Latham DO [address] [place] [address] [facility] Start: 08-13-2022 MR Prostate WO and W contrast IV [facility] Start: 08-13-2022 MR prostate wo/w con MR prostate wo/ w con [facility] Start: 08-17-2020 Pneumococcal Vaccine : 65+ Years (2 - PCV) Pneumococcal Vaccine: 65+ Years (2 - PCV) [facility] Start: 1950 Screening for malign ant neoplasm of colon [facility] Immunizations Immunization Date Immunization Notes Care Provider Fa [facility] 07-17-2024 influenza, high dose seasonal, preservative-free Zoey Latham DO Work Phone: [facility] 03-16-2024 Pneumococcal Conjuga te PCV 20 Wisam Shearer MATERIAL CREW SUPERVISOR Work Phone: [facility] 08-01-2023 influenza virus vacc ine, unspecified formulation Brian TAPIA [facility] 08-01-2023 Influenza, Seasonal, Quadrivalent, Adjuvanted Generic Provider [facility] 08-01-2023 SARS-COV-2 (COVID-19 ) vaccine, mRNA, spike protein, LNP, PF, prema-sucrose, 30 mcg/0.3 mL Generic Provider [facility] 08-10-2022 influenza virus vacc ine, unspecified formulation Brian TAPIA [facility] 08-10-2022 Influenza, High-dose Seasonal, Quadrivalent, Preservative Free [facility] 08-10-2022 SARS-COV-2 (COVID-19 ) vaccine, mRNA, spike protein, LNP, bivalent, preservative free, 30 mcg/0.3 mL dose, prema-sucrose formulation Generic Provider [facility] 08-02-2021 influenza virus vacc ine, unspecified formulation Brian TAPIA [facility] 08-02-2021 Influenza, High-dose Seasonal, Quadrivalent, Preservative Free Generic [facility] 08-02-2021 SARS-CoV-2 (COVID-19 ) mRNA BNT-162b2 vax Brian TAPIA [facility] Comment on above: Result Comment: 2023: TPV70 02-23-2021 SARS-CoV-2 (COVID-19 ) Ad26 vaccine, recombinant Brian TAPIA [facility] Comment on above: Result Comment: unab le to give exact dates 12-21-2020 SARS-CoV-2 (COVID-19 ) mRNA BNT-162b2 vax Brian TAPIA [facility] Comment on above: Result Comment: 2023: TPV70 11-30-2020 SARS-CoV-2 (COVID-19 ) mRNA BNT-162b2 kaitx Brian TAPIA [facility] Comment on above: Result Comment: 2023: TPV70 07-24-2020 influenza virus vacc ine, unspecified formulation Brian TAPIA [facility] 07-24-2020 Influenza, Seasonal, Quadrivalent, Adjuvanted Generic Provider [facility] 08-17-2019 influenza virus vacc ine, unspecified formulation Brian TAPIA [facility] 08-17-2019 influenza, high dose seasonal, preservative-free Wisam Manfred MATERIAL CREW SUPERVISOR Work Phone: [facility] 08-17-2019 pneumococcal polysaccharide vaccine, 23 valent Generic Provider [facility] 10-01-2018 zoster vaccine recombinant Generic Provider [facility] 07-09-2018 influenza virus vacc ine, unspecified formulation Brian TAPIA [facility] 07-09-2018 influenza, high dose seasonal, preservative-free Wisam Manfred MATERIAL CREW SUPERVISOR Work Phone: [facility] 07-09-2018 zoster vaccine recombinant Generic Provider [facility] 07-24-2017 influenza virus vacc ine, unspecified formulation Brian TAPIA [facility] 07-24-2017 influenza, high dose seasonal, preservative-free Wisam Manfred MATERIAL CREW SUPERVISOR Work Phone: [facility] 03-04-2013 zoster vaccine, live Generic Provide r [facility] Payers Date Payer Category Payer Private Health Insurance [id number] 2022 Self-pay 2022 Unknown [id number] 2020 Medicare [id number] 2015 Medicare [id number] 1959 Medicare [id number] 1959 Private Health Insurance [id number] 1949 Unknown [id number] [id number] 1949 Unknown [id number] 593 1949 Unknown [id number] 593 1949 Unknown [id number] 593 1949 Unknown [id number] 727 1950 Unknown [id number] 727 1950 Unknown [id number] 1259 1950 Unknown [id number] 1259 Medicare Medicare [id number] Unknown [employer] [id number] Unknown [id number] 531 Social History Date Type Detail Facility Start: 08-01-2022 End: 12-04-2023 Tobacco smoking status Ex-smoker (finding) [facility] Comment on above: Quit 40 + years ago Start: 09-23-2023 End: 03-16-2024 Sex Assigned At Male [facility] Start: 1950 Sex Assigned At Male [facility] Start: 09-12-2023 Tobacco smoking stat [facility] Never smoked tobacco [facility] Start: 09-12-2023 Tobacco use and exposure Smokeless tobacco non-user [facility] Start: 09-23-2023 End: 09-21-2024 Alcohol intake Lifetime non-drinker (finding) [facility] Start: 09-23-2023 End: 03-16-2024 History of Social function [facility] Start: 09-12-2023 Alcohol Comment caffeine: 1-2 cups per day hot chocolate [facility] Start: 1950 Sex Assigned At Not on file [facility] Tobacco smoking status Never [facility] Comment on above: Quit 40 + years ago Functional Status Date Assessment Result Facility 12-04-2023 Functional Status N/A [facility] 08-01-2022 Functional Status N/A [facility] Clinical Notes 08-01-2022 to 09-21-2024 Note Date & Type Note Facility 09-21-2024 Evaluation note Diagnosis Essential hypertension (CMS/HCC)- Primary Unspecified essential hypertension Stage 3a chronic kidney disease (HCC) (CMS/HCC) Mixed hyperlipidemia (CMS/HCC) Mixed hyperlipidemia Primary osteoarthritis of both knees Benign prostatic hyperplasia with lower urinary tract symptoms, symptom details unspecified Elevated PSA Elevated prostate specific antigen (PSA) History of left hip replacement [id number] Discharge instructions Patient Education 12/04/2023 09:18:08 Prostate Cancer Screening Prostate Cancer Screening Prostate cancer screening is testing that is done to check for the presence of prostate cancer in men. The prostate gland is a walnut-sized gland that is located below the bladder and in front of therectum in males. The function of the prostate is to add fluid to semen during ejaculation. Prostatecancer is one of the most common types of cancer in men. Who should have prostate cancer screening? Screening recommendations vary based on age and other risk factors, as well as between the professional organizations who make the recommendations. In general, screening is recommended if: You are age 50 to 70 and have an average risk for prostate cancer. You should talk with your healthcare provider about your need for screening and [...] diagnosed with prostate cancer. The risk is higherif your family member's cancer occurred at an early age or if you have multiple family members withprostate cancer at an early age. ?Being a [...] is a blood test called the prostate-specific antigen(PSA) test. PSA is a protein that is [...] treatment? Where to find more information The [employer]: www.cancer.org [employer]: www.auanet.org Contact a health care [...] the recommended screening test for prostate cancer, butit has associated risks. Discuss the risks and [...] provider. Document Revised: 04/07/2022 Document Reviewed: 04/07/2022 [employer] Patient Education 2022 [email or web address]. Follow Up Care 12/01/2022 12:39:52 With:MARVEL ELLIS, Brian Cartagena, URL Address: [facility] [address] [place] [address]- [phone] When:Within 1 Year(s) Comments:w/ PSA [facility] 02-06-2023 Hospital Discharge instructions Patient Education 12/01/2022 08:29:34 [...] done before cancer symptoms start. Screening can helpto identify cancer at an early stage, when [...] if you need screening if you have oneof these risk factors: ?Being of -Irish descent. ?Having a family history of prostate [...] you: Are older than age 55. Are -Irish. Have a father, brother, or uncle who [...] not tell you if your cancer needs shayy treated. Slow-growing prostate cancer may not need [...] 07/23/2018 Document Revised: 09/24/2018 Document Reviewed: 07/23/2018 [employer] Patient Education 2020 [employer] Follow Up Care 10/29/2022 15:01:27 With:MARVEL ELLIS, Brian Cartagena, URL Address: [facility] [address] [place] [address]- [phone] When:12/01/2023 Comments:PSA [facility] [place] 01-17-2023 Hospital Discharge instructions Patient Education 11/11/2022 10:31:02 [...] week (and blood in the semen for severalmonths) Diet -You may resume your normal diet, [...] for your post-operative appointment in 1-2 weeks [phone] or [phone] Follow Up Care 10/29/2022 14:59:58 With:Brian TAPIA Address: [facility] [address] [place] [address]- [facility] (1) When:11/25/2022 10:30:48 [facility]10-07-2022 Hospital Discharge instructions Patient Education 08/01/2022 12:24:45 [...] done before cancer symptoms start. Screening can helpto identify cancer at an early stage, when [...] if you need screening if you have oneof these risk factors: ?Being of -Irish descent. ?Having a family history of prostate [...] you: Are older than age 55. Are -Irish. Have a father, brother, or uncle who [...] not tell you if your cancer needs shayy treated. Slow-growing prostate cancer may not need [...] 07/23/2018 Document Revised: 09/24/2018 Document Reviewed: 07/23/2018 [employer] Patient Education 2020 [employer] Follow Up Care 06/28/2021 10:33:47 With:Brian TAPIA MD, URL Address: [address] [place] [address] [place] [address]- When: Unknown [facility] [facility] evaluation + Plan note No data available for this section [facility] evaluation + Plan note Future Appointments Appointment Date:12/01/2022 10:45:00 AM Scheduled Provider:Brian TAPIA MD Location:[facility] Appointment Type:URO Office Visit Diagnostic Tests Pending * Prostate Histology ([facility]) 11/11/22 * [facility]ments Appointment Date:12/01/2022 10:45:00 AM Scheduled Provider:Brian TAPIA MD Location:[facility] Appointment Type[facility] Future App[facility]ments Appointment Date:12/04/2023 08:30:00 AM Scheduled Provider:Brian TAPIA MD Location:[facility] Appointment Type:URO Office Visit Diagnostic Tests Pending * PSA Total 12/01/22 [facility] evaluation + Plan note Future Appointments Appointment Date:12/09/2024 08:00:00 AM Scheduled Provider:Brian TAPIA MD Location:[facility] Appointment Type:URO Office Visit Diagnostic Tests Pending * PSA Total 12/04/23 [facility] evaluation noteNo assessment information available [facility] Work Phone: Hospital Discharge instructions No data available for this section [facility] No data available for this section [facility] Summary Purpose Family History No Family History Records FoundNo Family History Records FoundNo Family History Records FoundNo Family History Records Found No data available for this section No Family History Records FoundNo Family History Records Found Advance Directives No Advanced Directives Records Found Advance Directive Response Recorded Date/ Time Advance Directives No August 13, 2022 1:04pm Date Activated Date Inactivated Comments 03/16/2024 9:57 AM Chief Complaint and Reason for Visit Chief Complaint Elevated PSA Additional Source Comments (unrecognized sect ion and content) No Status Records FoundNo Status Records FoundNo Status Records FoundNo Status Records FoundNo Status Records FoundNo Status Records Found INFORMATION SOURCE (unrecogn ized section and content) DATE CREATED AUTHOR 10/20/2018 [facility] DATE CREATED AUTHOR AUTHOR'S ORGANIZ ATION 08/18/2022 [facility] DATE CREATED AUTHOR AUTHOR'S ORGANIZ ATION 08/19/2022 [facility] DATE CREATED AUTHOR AUTHOR'S ORGANIZ ATION 03/08/2023 [facility] DATE CREATED AUTHOR AUTHOR'S ORGANIZ ATION 12/05/2023 [facility] DATE CREATED AUTHOR AUTHOR'S ORGANIZ ATION 09/24/2024 [facility] Special[facility] Patient Care team informatio n (unrecognized section and content) Team Status: Inactive Member Role Status Dates Brian Tapia MD Attending Provider Active Zoey Latham DO Primary Care Provider Active Team Status: Active Member Role Status Dates Zoey Latham DO Primary Care Provider Active [employer] Relationship Specialty Start Date End Date Zoey Latham DO [address] [place] [address] PCP - ACO Reach 03/19/23 Zoey Latham DO [address] [place] [address] PCP - General Internal Medicine 03/03/23 [employer] Relationship Specialty Start Date End Date Zoey Latham DO [address] [place] [address] PCP - ACO Reach 03/19/23 Zoey Latham DO [address] [place] [address] PCP - General Internal Medicine 03/03/23 [employer] Relationship Specialty Start Date End Date Zoey Latham DO [address] [place] [address] PCP - ACO Reach 03/19/23 Zoey Latham DO [address] [place] [address] PCP - General Internal Medicine 03/03/23 Goals (unrecognized section and content) Goals may be documented in a n alternate section Reason for Visit (unrecogniz ed section and content) Reason Comments 6 Month Follow-up of Chronic Conditions Pt is being seen today for management of chronic conditions. Pt had lab work done in preparations for todays visit, results and recommendations will be reviewed with them. FOR RECORDS PERTAINING TO PATIENTS WHO ARE [...] BE BASED ON THE PRIMARY CLINICAL RECORDS. [employer] provides no warranty or guarantee of the accuracy or completeness of information in this document.
[2024-11-25 08:14] LABS: Prostate Specific Antigen Dx 10.38 ng/mL (<=4.00)
== END 2024-11-25 06:33 | disposition home or self-care (01) ==
LOC: LAB 06:32
PROVIDERS: PCP Internal Medicine; Visit Provider Urology
DX: R97.20 Elevated prostate specific antigen [PSA] (principal)
CPT/HCPCS: 36415; 84153

== ENCOUNTER 2025-03-16 06:59 | Outpatient (OUT) | payer MEDICARE, OTHER, SELFPAY ==
--- OUTSIDE RECORDS SUMMARY | 2025-03-16 07:01 | XMS_ITS | Clinical Summary ---
Author Organization [facility] Address [address] [place] [address] Care Team Providers Care Car Electronics Installer Name Role Phone Erik Bains DO Unavailable [phone] Erik Bains DO Primary Care Provider [phone] Allergies No known active allergies Medications tamsulosin (Flomax) 0.4 MG 24 hr capsule Take 1 capsule by mouth every other day Active diclofenac sodium 1 % gel as directed Externally up to 4 times per day for 14 day(s) 2 Active simvastatin (Zocor) 40 MG tabletIndications :Pure hypercholesterole vinny, unspecified (CMS/HCC) TAKE 1 TABLET BY MOUTH EVERY DAY AT NIGHT 90 tablet 3 4 Active amLODIPine (Norvasc) 10 MG tabletIndications :Essential (primary) hypertension (CMS/HCC) TAKE 1 TABLET BY MOUTH ONCE EVERY NIGHT 90 tablet 3 5 Active metoprolol succinate XL (Toprol-XL) 25 MG 24 hr tabletIndications :Essential hypertension (CMS/HCC) TAKE 1 TABLET BY MOUTH EVERY DAY FOR 90 DAYS 90 tablet 3 5 Active Active Problems Problem Noted Date Diagnosed Date Primary osteoarthritis of both knees 09/21/2024 History of left hip replacement 09/21/2024 Elevated PSA 09/23/2023 Benign prostatic hyperplasia 09/09/2023 Stage 3a chronic kidney disease (HCC) 09/09/2023 Essential hypertension 09/09/2023 Mixed hyperlipidemia 09/09/2023 Resolved Problems Problem Noted Date Diagnosed Date Resolved Date CKD (chronic kidney disease) stage 2, GFR 60-89 ml/min 03/16/2024 09/21/2024 BMI 28.0-28.9,adult 09/23/2023 03/16/20 24 Encounters Date Type Department Care Team Description 12/29/2024 Refill [facility] [address] [place] [address] Erik Bains DO Essential hypertension (CMS/HCC) from Last 3 Months Immunizations Immunization Administration Dates Next Due Influenza, High Dose Seasona l, Preservative Free 07/17/2024,08/17/2019,07/09/2018,07/24 Influenza, High-dose Seasona l, Quadrivalent, Preservative Free 08/10/2022,08/02/2021 Influenza, Seasonal, Quadriv alent, Adjuvanted 08/01/2023,07/24/2020 Influenza, Unspecified 08/01/2023,2021,08/02/2021,07/24 Pneumococcal Conjugate PCV 20 03/16/2024 Pneumococcal Polysaccharide PPSV23 08/17/2019 SARS-COV-2 (COVID-19) vaccin e, mRNA, spike protein, LNP, PF, prema-sucrose, 30 mcg/0.3 mL 08/01/2023 SARS-COV-2 (COVID-19) vaccin e, mRNA, spike protein, LNP, bivalent, preservative free, 30 mcg/0.3 mL dose, prema-sucrose formulation 08/10/2022 Zoster, Recombinant 10/01/2018,07/09/2018 Zoster, live 03/04/2013 Family History Medical History Relation Name Comments Diabetes Father Hypertension Father Relation Name Status Comments Brother x4 Daughter x1 Father Mother Son x3 Social History Tobacco Use Types Packs/Day Years Used Date Smoking Tobacco: Never Smokeless Tobacco: Never Tobacco Cessation:Counseling Given: Not Answered Alcohol Use Standard Drinks/Week Comments Never 0 (1 standard drink = 0.6 oz pure alcohol) caffeine: 1-2 cups per day hot chocolate PHQ-2 Answer Date Recorded Patient Health Questionnaire-2 Score 0 03/16/2024 Sex and Gender Information Value Date Recorded Sex Assigned at Not on file Legal Sex Male 7:07 PM EDT Gender Identity Not on file Sexual Orientation Not on file Last Filed Vital Signs Vital Sign Reading Time Taken Comments Blood Pressure 126/68 09/21/2024 9:50 AM EST Pulse 74 09/21/2024 9:50 AM EST Temperature - - Respiratory Rate - - Oxygen Saturation 97% 09/21/2024 9:50 AM EST Inhaled Oxygen Concentration - - Weight 93 kg (205 lb) 09/21/2024 9:50 AM EST Height 182.9 cm (6') 09/21/2024 9:50 AM EST Body Mass Index 27.8 09/21/2024 9:50 AM EST Plan of Treatment Upcoming Encounters Date Type Department Care Team (Late st Contact Info) Description 03/22/2025 11:00 AM EDT Office Visit [facility] [address] [place] [address] Erik Bains DO [address] [place] [address] Health Maintenance Due Date Last Done Comments CT Colonography 1950 Colonoscopy 1950 FIT 1950 FOBT 1950 Sigmoidoscopy 1950 Colorectal Cancer Screening 11/19/2024 FIT-DNA 11/19/2024 11/19/2021, 11/19/2021 Pneumococcal Vaccine: 65+ Years Completed , 08/17/2019 Influenza Vaccine Completed 07/17/2024, , 08/01/2023, Additional history exists Procedures Procedure Name Priority Date/Time Associated Diagnosis Comments LAB COLOGUARD COLON CANCER SCREEN Routine 11/19/2021 from Last 3 Months or Most Recently Relevant to Health Maintenance Results * Cologuard?? colon cancer screening (11/19/2021) COLOGUARD RESULT REPORTABLE Negative Negative [facility] Comment: NEGATIVE TEST RESULT. A negative Cologuard result indicates a low likelihood that a colorectal cancer (CRC) or advanced adenoma (adenomatous polyps with more advanced pre-malignant features) is present. The chance that a person with a negative Cologuard test has a colorectal cancer is less than 1 in 1500 (negative predictive value >99.9%) or has an advanced adenoma is less than 5.3% (negative predictive value 94.7%). These data are based on a prospective cross-sectional study of 10,000 individuals at average risk for colorectal cancer who were screened with both Cologuard and colonoscopy. (Tab Arriola al, N Engl J Med 2014;370(14):3482-9916) The normal value (reference range) for this assay is negative. COLOGUARD RE-SCREENING RECOMMENDATION: Periodic colorectal cancer screening is an important part of preventive healthcare for asymptomatic individuals at average risk for colorectal cancer. Following a negative Cologuard result, the [place] [employer] and U.S. Multi-Society Task Force screening guidelines recommend a Cologuard re-screening interval of 3 years. References: [place] [employer] Guideline for Colorectal Cancer Screening: https://www.cancer.org/cancer/qwwwx-qktsqm-wrogzc/xxtpnpfjd-jfhtmgyay-qsoxjre/ac s-rec ommendations.html.; Heriberto DK, Lillian WATTS, Emma SamanoK, Colorectal Cancer Screening: Recommendations for Physicians and Patients from the U.S. Multi-Society Task Force on Colorectal Cancer Screening , Am J Gastroenterology 2017; 112:3403-8397. TEST DESCRIPTION: Composite algorithmic analysis of stool DNA-biomarkers with hemoglobin immunoassay. Quantitative values of individual biomarkers are not reportable and are not associated with individual biomarker result reference ranges. Cologuard is intended for colorectal cancer screening of adults of either sex, 45 years or older, who are at average-risk for colorectal cancer (CRC). Cologuard has been approved for use by the U.S. FDA. The performance of Cologuard was established in a cross sectional study of average-risk adults aged 50-84. Cologuard performance in patients ages 45 to 49 years was estimated by sub-group analysis of near-age groups. Colonoscopies performed for a positive result may find as the most clinically significant lesion: colorectal cancer [4.0%], advanced adenoma (including sessile serrated polyps greater than or equal to 1cm diameter) [20%] or non- advanced adenoma [31%]; or no colorectal neoplasia [45%]. These estimates are derived from a prospective cross-sectional screening study of 10,000 individuals at average risk for colorectal cancer who were screened with both Cologuard and colonoscopy. (Tab Arriola al, N Engl J Med 2014;370(14):5860-6123.) Cologuard may produce a false negative or false positive result (no colorectal cancer or precancerous polyp present at colonoscopy follow up). A negative Cologuard test result does not guarantee the absence of CRC or advanced adenoma (pre-cancer). The current Cologuard screening interval is every 3 years. ([place] [employer] and U.S. Multi-Society Task Force). Cologuard performance data in a 10,000 patient pivotal study using colonoscopy as the reference method can be accessed at the following location: www.[employer].com/results. Additional description of the Cologuard test process, warnings and precautions can be found at www.cologuard.com. 11/19/2021 Erik Bains DO LAB MOLECULAR DIAGNOSTICS OR DERABLES Final Result [facility] from Last 3 Months or Most Recently Relevant to Health Maintenance [place] [address] [employer] Advance Directives * Full Code (Latest Code Status on File) Date Activated Date Inactivated Comments 03/16/2024 9:57 AM Care Teams Car Electronics Installer Relationship Specialty Start Date End Date Erik Bains DO [address] [place] [address] PCP - ACO Reach 03/19/23 Erik Bains DO [address] [place] [address] PCP - General Internal Medicine 03/03/23
--- OUTSIDE RECORDS SUMMARY | 2025-03-16 07:01 | XMS_ITS | Clinical Summary ---
Author Organization [facility] Address [address] [place], [place] [id number] Care Team Providers Care It Business Process Architect Name Role Phone Unavailable Primary Care Provider Unavailabl e Social History Tobacco Use Types Packs/Day Years Used Date Smoking Tobacco: Never Assessed Sex and Gender Information Value Date Recorded Sex Assigned at Not on file Legal Sex Male 8:56 AM EST Gender Identity Not on file Sexual Orientation Not on file Plan of Treatment Not on file Insurance MEDICARE
--- OUTSIDE RECORDS SUMMARY | 2025-03-16 07:02 | XMS_ITS | CCD ---
Author Organization [facility] Care Team Providers Care Cross Country Coach Name Role Phone BRIAN TAPIA Unavailable Unavailable ANAYELI GREER Primary Care Physician [phone] MD Brian Tapia Attending Provider DO Zoey [...] Unavailable Zoey Latham DO Primary Care Provider ZOEY LATHAM Attending Unavailable ZOEY LATHAM Referring Unavailable ZOEY LATHAM Attending Unavailable ZOEY LATHAM Referring Unavailable Brian TAPIA Attending Unavailable Brian TAPIA Attending Unavailable Brian TAPIA Attending Unavailable Medications Current Medications Medication Drug Class(es) Dates Sig (Normalized) Sig (Original) acetaminophen 325 mg / HYDROcodone bitartrate 7.5 mg oral tablet (2 sources) Opioid Agonist Start: 10-29-2022 take 1 tablet by mouth once, then take 1 tablet by mouth every hour [place] 325 mg-7.5 mg oral tablet 1 tab(s), Oral, Once, 1 tab(s), Refill(s) 0, Take 1 hour prior to procedure. Don't drive or operate machinery while taking this medication., [facility]/pharmacy #[id number], 182, cm, 08/01/22 11:50:00 EDT, Height/Length Dosing, 93.2, kg, 08/01/22 11:50:00 EDT, We... Start Date: 10/29/22 Status: Ordered amLODIPine 10 mg oral tablet (8 sources) Dihydropyridine Calcium Channel Osbaldo Start: 11-19-2023 take 1 tablet by mouth once daily amLODIPine (Norvasc) 10 MG tablet Indications: Essential (primary) hypertension (CMS/HCC) TAKE 1 TABLET BY MOUTH ONCE EVERY NIGHT 90 tablet 3 11/14/2024 Active aspirin 81 mg oral tablet (11 sources) Platelet Aggregation Inhibitor, Nonsteroidal Anti-inflammatory Drug Start: 03-23-2020 take 81 mg by mouth once daily aspirin 81 mg, Oral, Daily, Refills(s) 0 Start Date: 03/23/20 Status: Ordered End: 09-21-2024 aspirin 81 MG EC tablet Take by mouth Daily. 09/21/2024 Discontinued Maxidex (6 sources) Corticosteroid Start: 10-14-2019 Maxidex Eye-Both, QID, Refill(s) 0 Start Date: 10/14/19 Status: Ordered diclofenac sodium 0.01 mg/mg topical gel (6 sources) Nonsteroidal Anti-inflammatory Drug Start: 08-17-2022 diclofenac sodium 1 % gel as directed Externally up to 4 times per day for 14 day(s) 08/17/2022 Active dutasteride 0.5 mg oral capsule (1 source) 5-alpha Reductase Inhibitor Start: 12-09-2024 take 1 capsule by mouth once daily dutasteride 0.5 mg Cap 0.5 mg = 1 cap(s), Oral, Daily, # 30 cap(s), Refills(s) 11, Pharmacy: [facility]/pharmacy #[id number], 183, cm, 12/09/24 8:19:00 EST, Height/Length Dosing, 96.8, kg, 12/09/24 8:19:00 EST, Weight Dosing Start Date: 12/09/24 Status: Ordered hydroCHLOROthiazide 25 mg / triamterene 37.5 mg oral tablet (4 sources) Potassium-sparing Diuretic, Thiazide Diuretic Start: 06-28-2021 hydrochlorothiaz eufemia-triamterene 25 mg-37.5 mg Tab 1 tab(s), Daily, Refill(s) 0 Start Date: 06/28/21 Status: Ordered 24 hr metoprolol succinate 25 mg extended release oral tablet (8 sources) beta-Adrenergic Osbaldo Start: 01-12-2024 take 1 [...] 0 Active simvastatin 40 mg oral tablet (12 sources) HMG-CoA Reductase Inhibitor Start: 08-15-2024 take [...] Ordered tamsulosin hydrochloride 0.4 mg oral capsule (12 sources) alpha-Adrenergic Osbaldo Start: 08-01-2022 take 1 capsule by mouth every other day Flomax 0.4 mg Cap 0.4 mg = 1 cap(s), Oral, Every other day, # 45 cap(s), Refills(s) 3, Pharmacy: [facility]/pharmacy #[id number], 183, cm, 12/04/23 8:32:00 EST, Height/Length Dosing, 91, kg, 12/04/23 8:32:00 EST, Weight Dosing Start Date: 04/05/24 Status: Ordered take 1 capsule by mo [facility] every twenty-four hours in the morning tamsulosin (Flomax) 0.4 MG 24 hr capsule Take 1 capsule by mouth in the morning. Active Problems Active Problems Problem Classification Problem Date Documented Date Episodic/Chronic Chronic kidney disease (13 sources) Chronic kidney disease stage 3A ; Translations: [Stage 3a chronic kidney disease (HCC)] Onset: 09-09-2023 Resolved: 09-21-2024 09-09-2023 Chronic Chronic kidney disease (1 source) Chronic kidney disease; Translations: [CHRONIC KIDNEY DISEASE STAGE 3A] Onset: 03-07-2023 Diabetes mellitus without complication (2 sources) Prediabetes; Translations: [Impaired fasting glucose] Onset: 09-08-2022 Episodic Disorders of lipid metabolism (19 sources) Hypercholesterolemia; Translations: [Pure hypercholesterolemia, unspecified] Onset: 05-07-2022 04-10-2019 Chronic Essential hypertension (18 sources) Hypertensive disorder; Translations: [Essential (primary) hypertension] Onset: 09-05-2022 04-10-2019 Chronic Hyperplasia of prostate (20 sources) Benign prostatic hypertrophy with outflow obstruction; Translations: [Benign prostatic hyperplasia with lower urinary tract symptoms] Onset: 07-03-2022 Chronic Hypertension with complications and secondary hypertension (1 source) Hypertensive chronic kidney disease with stage 1 through stage 4 chronic kidney disease, or unspecified chronic kidney disease; Translations: [HTN CKD W/STAGE 1-4 CKD/UNS CKD] Onset: 03-07-2023 Chronic Inflammatory conditions of male genital organs (6 sources) Chronic prostatitis; Translations: [Chronic prostatitis] Onset: 12-01-2022 Chronic Osteoarthritis (5 sources) Primary gonarthrosis, bilateral; Translations: [Bilateral primary osteoarthritis of knee] Onset: 09-21-2024 09-21-2024 Chronic Other connective tissue disease (5 sources) History of repair of hip joint; Translations: [Presence of left artificial hip joint] Onset: 09-21-2024 09-21-2024 Chronic Other nutritional; endocrine; and metabolic disorders (6 sources) Body mass index 25-29 - overweight 03-09-2020 Episodic Other screening for suspected conditions (not mental disorders or infectious disease) (20 sources) Raised prostate specific antigen; Translations: [Elevated prostate specific antigen [PSA]] Onset: 08-01-2022 Episodic Unclassified (1 source) Unknown / UNK(Unknown) Onset: 10-18-2018 Past or Other Problems Problem Classification Problem Date Documented Da te Episodic/Chronic Other nutritional; endocrine; and metabolic disorders (6 sources) Overweight in adulthood with body mass index of 25 or more but less than 30; Translations: [Body mass index (BMI) 28.0-28.9, adult] Onset: 09-23-2023 Resolved: 03-16-2024 09-23-2023 Episodic Results Test Name Value Interpretation Reference Range Facility Ambulatory Visit Summaryon 0 12-09-2024 Ambulatory Visit Summary Ambulatory Visit Summary AGUS ORTIZ :1950 Visit Date:12/09/2024 Ambulatory Visit Instructions Your Diagnosis Elevated PSA BPH with urinary obstruction Chronic prostatitis Your Care Team Attending Physician - Brian TAPIA MD Primary Care Physician - ANAYELI GREER MD This Is Your Medications List dutasteride (dutasteride 0.5 mg Cap) tamsulosin (Flomax 0.4 mg Cap) Contact prescribing [...] joint operations. Discharge Vitals Heart Rate (Peripheral) 66 Respiratory Rate 18 Blood Pressure 164/78 Height 72 in Height 183 cm Weight 213.407 lb Weight 96.8 kg BMI 28.91 What to do next Scheduled Follow-Up Appointments Thursday 8:00 AM EDT With: Where: [facility] [address] [facility] [address] [place], [place] [id number]- Thursday 8:45 AM EDT With: Brian TAPIA MD Where: [facility] [address] [place] [address] [place] [address]- You Need to Schedule the Following Appointments Follow Up with Brian TAPIA MD, URL When: Where: [address] [place] [address]- Medications What How Much When Instructions New dutasteride (dutasteride 0.5 mg Cap) 1 Capsules By Mouth Every day Refills: 11 Pickup at [facility]/pharmacy #[id number] Unchanged tamsulosin (Flomax 0.4 mg Cap) 1 [...] Contact prescribing physician if questions or concerns Pharmacy Information [facility]/pharmacy #[id number]: [address], [place] [id number] [phone] Allergies No Known Allergies Problems Ongoing - [...] choosing us for your care. Education Materials Benign Prostatic Hyperplasia Benign prostatic hyperplasia (BPH) is an enlarged prostate gland that is caused by the normal aging process. The prostate may get bigger as a man gets older. The condition is not caused by cancer. The prostate is a walnut-sized gland that is involved in the production of semen. It is located in front of the rectum and below the bladder. The bladder stores urine. The urethra carries stored urine out of the body. An enlarged prostate can press on the urethra. This can make it harder to pass urine. The buildup of urine in the bladder can cause infection. Back pressure and infection may progress to bladder damage and kidney (renal) failure. What are the causes? This condition is part of the normal aging process. However, not all men develop problems from this condition. If the prostate enlarges away from the urethra, urine flow will not be blocked. If it enlarges toward the urethra and compresses it, there will be problems passing urine. What increases the risk? This condition is more likely to develop in men older than 50 years. What are the signs or symptoms? Symptoms of this condition include: ??? Getting up often during the night to urinate. ??? Needing to urinate frequently during the day. ??? Difficulty starting urine flow. ??? Decrease in size and strength of your urine stream. ??? Leaking (dribbling) after urinating. ??? Inability to pass urine. This needs immediate treatment. ??? Inability to completely empty your bladder. ??? Pain when you pass urine. This is more common if there is also an infection. ??? Urinary tract infection (UTI). How is this diagnosed? This condition is diagnosed based on your medical history, a physical exam, and your symptoms. Tests will also be done, such as: ??? A post-void bladder scan. This measures any amount of urine that may remain in y (more content not included)... Normal [facility] Urology Office/Clinic Noteon 12-09-2024 Urology Office/Clinic Note Urology Office/Clinic Note Chief Complaint 1yr PSA HPI Staff 1 year f/u with PSA. Denies all urinary symptoms. Dx: elevated PSA, BPH wit urinary obstruction (Alexander 2016) and chronic prostatitis *tamsulosin 0.4mg every other day PSA: 02/2020 - 17.9 06/19/21 - 10.03 07/03/22 - 12.97 11/27/23 - 12.27 11/25/24 - 10.38 History of Present Illness Tests reviewed: reviewed UA and PSA. I have reviewed the previous health record information and history for this patient from Dr. Tapia I have reviewed and verified the staff HPI to be accurate for this encounter. There have been no associated fever, chills, flank pain, or blood in the urine. Denies any urinary infections since last encounter. Review of Systems PHQ Score Initial [...] HPI. Physical Exam Vitals & Measurements HR: 66(Peripheral) RR: 18 BP: 164/78 HT: 72 in HT: 183 cm WT: 96.8 kg WT: 213.407 lb BMI: 28.91 General Appearance: alert, no distress, well nourished, well developed male. Assessment/Plan 1. Elevated PSA (R97.20: Elevated prostate specific antigen [PSA]) PSA 02/2020 - 17.9 06/19/21 - 10.03 07/03/22 - 12.97 11/27/23 - 12.27 11/25/24 - 10.38 MRI of prostate 09/2018 - PI-RADS 2. MRI of prostate 08/13/22 [facility] [place] No evidence of prostate malignancy. Prostate volume 99 mL. S/p TRUS/bx 01/02/17, 04/03/20, and 11/11/22 - neg. JACOBO 12/04/23 ~50g, benign. PSA remains elevated overall however this is likely attributed to pt's enlarged prostate. Will cont to monitor. -PSA due in 6 months -Starting Dutasteride 2. 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 MRI of prostate 08/13/22 [facility] [place] - Prostate volume 99 mL. Taking Flomax 0.4mg qod. He remembers decreasing to qod following REZUM due to things going so good . Pt states he has had great results since REZUM, it changed my life for the better . Pt states he used to get up at least 4x during the night and now he can drink a bottle of water prior to bed and not get up at all. Strong stream. Again discussed adding a 5-alpha reductase inhibitor to shrink pt's prostate over time. He understands it can take at least 3-6 months to receive full effect. Counseled pt on possible SE. He is willing to trial med. Directed pt to cont Flomax until he has taken Dutasteride for at least a few months, and then pt can d/c Flomax. -Start Dutasteride 0.5mg qd, monitor for SE -D/c Flomax once pt has been on prostate forensic pathologist for at least 2 months 3. Chronic prostatitis (N41.1: Chronic prostatitis) UA today negative for blood and infection. Asymptomatic. -Cont sx monitoring Follow-up With When Contact Information MARVEL ELLIS, Brian Cartagena, URL [address] [place] [address]- Additional Instructions: 6 mos w/ PSA Patient Education Benign Prostatic Hyperplasia I, Ashleigh Phoenix, personally scribed for Dr. Tapia on 12/09/2024 09:07:40. . Documentation recorded by the scribe, Ashleigh Phoenix, accurately reflects the services(s) I performed and decisions made by me. Authenticated by Dr. Tapia on 12/09/2024 09:08:36. Problem List/Past Medical History Ongoing BMI 29.0-29.9,adult [...] mg= 1 cap(s), Oral, Every other day, 3 refills Maxidex, Eye-Both, QID metoprolol simvastatin, Oral Allergies No Known Allergies Social History Alcohol - Denies Alcohol Use, 10/14/2019 Current., 12/09/2024 Substance Abuse - Denies Substance Abuse, 08/01/2022 Never., 12/09/2024 Tobacco - Denies Tobacco Use, 10/14/2019 Former smoker, quit more than 30 days ago Tobacco Use:. Never Smokeless Tobacco Use:. Cigarettes, 12/09/2024 Family History Diabetes mellitus type 2: Father. Immunizations Vaccine Date Status Comments influenza virus vaccine, inactivated (more content not included)... Normal [facility] Comment on above: Result Comment: Elec tronically Signed By: Brian TAPIA MD\.br\Date and Time Signed: 12/09/24 09:08 EST\.br\Electronically Co-Signed By: Ashleigh Phoenix\Date and Time Co-Signed: 12/09/24 09:07 EST MHPT PSA, DIAGNOSTICon 11-25 Interpretation and review of laboratory results Abnormal [facility] PROSTATE SPECIFIC ANTIGEN DX 10.38 ng/mL High NINF - 4.00 ng/mL [facility] ALL CBC WITH AUTO DIFFon BASOPHILS ABSOLUTE AUTO 0.1 [facility] Basophils/100 WBC (Bld) 0.6 % 0.2 - 2.0 % [facility] Eosinophils/100 WBC (Bld) 2.8 % 0.9 - 7.0 % [facility] Erythrocyte distribution width (RBC) [Ratio] 12.7 % 11.0 - 15.0 % [facility] Hematocrit (Bld) [Volume fraction] 48.3 % 42.0 - 54.0 % [facility] Hemoglobin (Bld) [Mass/Vol] 16.4 g/dL 14.0 - 18.0 g/dL [facility] IMMATURE GRANULOCYTES ABS AUTO 0.02 [facility] Immature granulocytes/100 WBC (Bld) 0.2 % 0.0 - 0.5 % [facility] Interpretation and review of laboratory results Abnormal [facility] LYMPHOCYTES ABSOLUTE AUTO 2.4 [facility] Lymphocytes/100 WBC (Bld) 27.5 % 20.5 - 60.0 % [facility] MCH (RBC) [Entitic mass] 30.5 pg 25.9 - 34.0 pg [facility] MCHC (RBC) [Mass/Vol] 34 g/dL 29.9 - 35.2 g/dL [facility] MCV (RBC) [Entitic vol] 89.9 fL 80.0 - 94.0 fL [facility] MONOCYTES ABSOLUTE AUTO 0.7 [facility] Monocytes/100 WBC (Bld) 7.8 % 1.7 - 12.0 % [facility] NEUTROPHILS ABSOLUTE AUTO 5.4 [facility] Neutrophils/100 WBC (Bld) 61.1 % 43.0 - 75.0 % [facility] Platelet mean volume (Bld) [Entitic vol] 8.4 fL Low 9.5 - 13.5 fL [facility] TBH EO # 0.3 [facility] PLT [address] [facility] RBC 5.37 [facility] WBC 8.8 [facility] PSA, DIAGNOSTICon 11-27 Interpretation and review of laboratory results Abnormal [facility] PROSTATE SPECIFIC ANTIGEN DX 12.27 ng/mL High NINF - 4.00 ng/mL [facility] GLYCOHEMOGLOBIN A1Con 2022 ADA RECOMMENDATION SEE BELOW Normal [facility] Comment on above: Result Comment: ADA RECOMMENDED LIMIT 4.0 - 6.0 ADA THERAPEUTIC TARGET < 7.0 ACTION SUGGESTED > 7.0 Performed By: #### A 1C #### [facility] [address] [place] [address] Dr. Khari Meadows Glucose [Mass/Vol] 108 mg/dL Normal [facility] Comment on above: Performed By: #### A 1C #### [facility] [address] [place] [address] Dr. Khari Meadows HbA1c (Bld) [Mass fraction] 5.4 % Normal 4.5-6.2 [facility] Comment on above: Performed By: #### A 1C #### [facility] [address] [place] [address] Dr. Khari Meadows MICROALBUMIN, RAND URon 05-0 mALB <1.3 Normal <=30.0 [facility] Comment on above: Performed By: #### M ALBR #### [facility] [address] [place] [address] Dr. Khari Meadows PROF CHEM 8 (BAS METB)on Anion gap [Moles/Vol] 10.9 mmol/L Normal [facility] Comment on above: Performed By: #### B MP #### [facility] [address] [address] [address] Khari Meadows Calcium [Mass/Vol] 9.0 mg/dL Normal 8.5-10.1 [facility] Comment on above: Performed By: #### B MP #### [facility] [address] [place] [address] Dr. Khari Meadows Chloride [Moles/Vol] 105 mmol/L Normal 98-107 [facility] Comment on above: Performed By: #### B MP #### [facility] [address] [address] [address] Khari Meadows CO2 [Moles/Vol] 27.7 mmol/L Normal 21.0-32.0 [facility] Comment on above: Performed By: #### B MP #### [facility] [address] [address] [address] Khari Meadows Creatinine [Mass/Vol] 1.24 mg/dL Normal 0.70-1.30 [facility] Comment on above: Performed By: #### B MP #### [facility] [address] [address] [address] Khari Meadows EGFR-AF TOGOLESE >60 Normal >=60 [facility] Comment on above: Performed By: #### B MP #### [facility] [address] [place] [address] Dr. Khari Meadows EGFR-NON AF TOGOLESE 57 mL/min/1.73m2 Critically low >=60 [facility] Comment on above: Performed By: #### B MP #### [facility] [address] [address] [address] Khari Meadows Glucose [Mass/Vol] 95 mg/dL Normal 74-106 [facility] Comment on above: Performed By: #### B MP #### [facility] [address] [address] [address] Khari Meadows Potassium [Moles/Vol] 3.6 mmol/L Normal 3.5-5.1 [facility] Comment on above: Performed By: #### B MP #### [facility] [address] [address] [address] Khari Meadows Sodium [Moles/Vol] 140 mmol/L Normal 136-145 [facility] Comment on above: Performed By: #### B MP #### [facility] [address] [address] [address] Khari Meadows Urea nitrogen [Mass/Vol] 26.0 mg/dL Critically high 7.0-18.0 [facility] Comment on above: Performed By: #### B MP #### [facility] [address] [place] [address] Dr. Khari Meadows Urea nitrogen/Creatinine [Mass ratio] 21.0 mg/mg Normal [facility] Comment on above: Performed By: #### B MP #### [facility] [address] [place] [address] Dr. Khari Meadows UA RANDOMon 03-03-2023 Bilirubin Ql (U) Negative Normal NEGATIVE [facility] Comment on above: Performed By: #### U A #### [facility] [address] [place] [address] Dr. Khari Meadows Clarity (U) CLEAR Normal CLEAR [facility] Comment on above: Performed By: #### U A #### [facility] [address] [place] [address] Dr. Khari Meadows Color (U) LT. YELLOW Normal YELLOW [facility] Comment on above: Performed By: #### U A #### [facility] [address] [place] [address] Dr. Khari Meadows Glucose Ql (U) Negative Normal NEGATIVE [facility] Comment on above: Performed By: #### U A #### [facility] [address] [place] [address] Dr. Khari Meadows Hemoglobin Ql (U) Negative Normal NEGATIVE [facility] Comment on above: Performed By: #### U A #### [facility] [address] [place] [address] Dr. Khari Meadows Ketones Ql (U) Negative Normal NEGATIVE [facility] Comment on above: Performed By: #### U A #### [facility] [address] [place] [address] Dr. Khari Meadows LEUKOCYTES Negative Normal NEGATIVE [facility] Comment on above: Performed By: #### U A #### [facility] [address] [place] [address] Dr. Khari Meadows Nitrite Ql (U) Negative Normal NEGATIVE [facility] Comment on above: Performed By: #### U A #### [facility] [address] [place] [address] Dr. Khari Meadows pH (U) 6.0 [pH] Normal 5-9 [facility] Comment on above: Performed By: #### U A #### [facility] [address] [place] [address] Dr. Khari Meadows SPEC GRAVITY 1.025 Normal 1.005-<=1. 025 [facility] Comment on above: Performed By: #### U A #### [facility] [address] [place] [address] Dr. Khari Meadows UA PROTEIN Negative Normal NEGATIVE/ TRACE [facility] Comment on above: Performed By: #### U A #### [facility] [address] [place] [address] Dr. Khari Meadows Urobilinogen Qn (U) 0.2 {Yaneth'U}/dL Normal 0.2 - 1. 0 [facility] Comment on above: Performed By: #### U A #### [facility] [address] [place] [address] Dr. Khari Meadows LIPID PROFILEon 09-05-2022 CHOL-HDL RATIO NORM SEE BELOW Normal [facility] Comment on above: Result Comment: 3.3 - 4.4 LOW RISK 4.4 - 7.1 AVERAGE RISK 7.1 - 11.0 MODERATE RISK >11.0 HIGH RISK Performed By: #### L IPID, CMP #### [facility] [address] [place] [address] Dr. Khari Meadows Cholesterol [Mass/Vol] 156 mg/dL Normal <=200 [facility] Comment on above: Performed By: #### L IPID, CMP #### [facility] [address] [place] [address] Dr. Khari Meadows Cholesterol in HDL [Mass/Vol] 45 mg/dL Normal 40-60 [facility] Comment on above: Performed By: #### L IPID, CMP #### [facility] [address] [place] [address] Dr. Khari Meadows Cholesterol in LDL [Mass/Vol] 99.6 mg/dL Normal [facility] Comment on above: Performed By: #### L IPID, CMP #### [facility] [address] [place] [address] Dr. Khari Meadows Cholesterol.total/C holesterol in HDL [Mass ratio] 3.5 {ratio} Normal [facility] Comment on above: Performed By: #### L IPID, CMP #### [facility] [address] [place] [address] Dr. Khari Meadows HDL NORMAL > or = 60 mg/dl - LO W CARDIOVASCULAR RISK <40 mg/dl - HIGH CARDIOVASCULAR RISK Normal [facility] Comment on above: Performed By: #### L IPID, CMP #### [facility] [address] [place] [address] Dr. Khari Meadows LDL CALC NORMAL SEE BELOW Normal [facility] Comment on above: Result Comment: <100 mg/dl OPTIMAL 100 - 129 mg/dl NEAR OR ABOVE OPTIMAL 130 - 159 mg/dl BORDERLINE HIGH 160 - 189 mg/dl HIGH >190 mg/dl VERY HIGH Performed By: #### L IPID, CMP #### [facility] [address] [place] [address] Dr. Khari Meadows Triglyceride [Mass/Vol] 57 mg/dL Normal <=150 [facility] Comment on above: Performed By: #### L IPID, CMP #### [facility] [address] [place] [address] Dr. Khari Meadows VLDL CALC 11.4 mg/dL Normal [facility] Comment on above: Performed By: #### L IPID, CMP #### [facility] [address] [place] [address] Dr. Khari Meadows PROF 14(COMP METB)on 022 Albumin [Mass/Vol] 3.6 g/dL Normal 3.4-5.0 [facility] Comment on above: Performed By: #### L IPID, CMP #### [facility] [address] [place] [address] Dr. Khari Meadows Albumin/Globulin [Mass ratio] 1.0 {ratio} Normal [facility] Comment on above: Performed By: #### L IPID, CMP #### [facility] [address] [place] [address] Dr. Khari Meadows ALP [Catalytic activity/Vol] 73 U/L Normal 46-116 [facility] Comment on above: Performed By: #### L IPID, CMP #### [facility] [address] [place] [address] Dr. Khari Meadows ALT [Catalytic activity/Vol] 30 U/L Normal 16-63 [facility] Comment on above: Performed By: #### L IPID, CMP #### [facility] [address] [place] [address] Dr. Khari Meadows Anion gap [Moles/Vol] 9.4 mmol/L Normal [facility] Comment on above: Performed By: #### L IPID, CMP #### [facility] [address] [place] [address] Dr. Khari Meadows AST [Catalytic activity/Vol] 20 U/L Normal 15-37 [facility] Comment on above: Performed By: #### L IPID, CMP #### [facility] [address] [place] [address] Dr. Khari Meadows Bilirubin [Mass/Vol] 0.4 mg/dL Normal 0.2-1.0 [facility] Comment on above: Performed By: #### L IPID, CMP #### [facility] [address] [place] [address] Dr. Khari Meadows Calcium [Mass/Vol] 9.1 mg/dL Normal 8.5-10.1 [facility] Comment on above: Performed By: #### L IPID, CMP #### [facility] [address] [place] [address] Dr. Khari Meadows Chloride [Moles/Vol] 105 mmol/L Normal 98-107 [facility] Comment on above: Performed By: #### L IPID, CMP #### [facility] [address] [place] [address] Dr. Khari Meadows CO2 [Moles/Vol] 29.9 mmol/L Normal 21.0-32.0 [facility] Comment on above: Performed By: #### L IPID, CMP #### [facility] [address] [place] [address] Dr. Khari Meadows Creatinine [Mass/Vol] 1.27 mg/dL Normal 0.70-1.30 [facility] Comment on above: Performed By: #### L IPID, CMP #### [facility] [address] [address] [address] Khari Meadows EGFR-AF TOGOLESE >60 Normal >=60 [facility] Comment on above: Performed By: #### L IPID, CMP #### [facility] [address] [address] [address] Khari Meadows EGFR-NON AF TOGOLESE 56 mL/min/1.73m2 Critically low >=60 [facility] Comment on above: Performed By: #### L IPID, CMP #### [facility] [address] [place] [address] Dr. Khari Meadows Globulin (S) [Mass/Vol] 3.6 g/dL Normal [facility] Comment on above: Performed By: #### L IPID, CMP #### [facility] [address] [place] [address] Dr. Khari Meadows Glucose [Mass/Vol] 112 mg/dL Critically high 74-106 [facility] Comment on above: Performed By: #### L IPID, CMP #### [facility] [address] [place] [address] Dr. Khari Meadows Potassium [Moles/Vol] 5.3 mmol/L Critically high 3.5-5.1 [facility] Comment on above: Performed By: #### L IPID, CMP #### [facility] [address] [place] [address] Dr. Khari Meadows Protein [Mass/Vol] 7.2 g/dL Normal 6.4-8.2 [facility] Comment on above: Performed By: #### L IPID, CMP #### [facility] [address] [place] [address] Dr. Khari Meadows Sodium [Moles/Vol] 139 mmol/L Normal 136-145 [facility] Comment on above: Performed By: #### L IPID, CMP #### [facility] [address] [place] [address] Dr. Khari Meadows Urea nitrogen [Mass/Vol] 30.0 mg/dL Critically high 7.0-18.0 [facility] Comment on above: Performed By: #### L IPID, CMP #### [facility] [address] [address] [address] Khari Meadows Urea nitrogen/Creatinine [Mass ratio] 23.6 mg/mg Normal [facility] Comment on above: Performed By: #### L IPID, CMP #### [facility] [address] [address] [address] Khari Meadows XR Ankle Complete Left*on [...] by RICHARD LARA on 08/17/2022 1407 Normal [facility] XR Foot Complete Left*on XR Foot Complete [...] by RICHARD LARA on 08/17/2022 1408 Normal [facility] MR prostate wo/w conon 08-14 MR prostate wo/w con [facility] [place] [address] MRI Report Signed Patient: Agus Ortiz MR#: [id number] [birth year] : 1950 Acct:[id number] Age/Sex: 71 / M ADM Date: 08/13/22 Loc: MR Room: Type: [facility] Attending Dr: Brian Tapia MD [...] Rg Jr., D.O.08/14/2022 9:33 AM Dictation Location: [place] [address] Transcribed By: [facility] 08/14/22932 Dictated By: King Rg Jr DO 08/14/22 0927 Signed By: 08/14/2233 [facility] Creatinine (Bld) [Mass/Vol]O rdered By: Brian Tapia on 08-13-2022 Creatinine [Mass/Vol] 1.3 mg/dL 0.6-1.3 [facility] Comment on above: ER/ESD physician is notified/shown all ISTAT results.Critical values may be confirmed by laboratory testing ifdeemed necessary by ER attending doctor. ISTAT XRay CREon 08-13-2022 Creatinine [Mass/Vol] 1.3 mg/dL Normal 0.6-1.3 [facility] Comment on above: Result Comment: ER/E SD physician is notified/shown all ISTAT results. Critical values may be confirmed by laboratory testing if deemed necessary by ER attending doctor. Performed By: #### I SCRE #### [facility] [address] [place] [address] Point of Care testing , ISTAT GFR ( > 60 Normal [facility] Comment on above: Result Comment: GFR estimated reference range: According to KDOQI guidelines, <60 ml/min/1.73m2 is sufficient to diagnose a patient with chronic kidney disease. PERFORMED BY: [place] [address] PATHOLOGIST AGRICULTURAL EXTENSION OFFICER MELVIN DANG M.D. Performed By: #### I SCRE #### [facility] [address] [place] [address] Point of Care testing , ISTAT GFR (Non- Am 54 Normal [facility] Comment on above: Performed By: #### I SCRE #### [facility] [address] [place] [address] Point of Care testing , No Panel InformationOrdered By: Brian Tapia on 08-13-2022 POC Estimated GFR > 60 [facility] Comment on above: GFR estimated refere nce range: According to KDOQI guidelines, <60 ml/min/1.73m2 is sufficient to diagnose a patient with chronic kidney disease. POC Estimated GFR Non- Amer 54 [facility] GLYCOHEMOGLOBIN A1Con 2021 ADA RECOMMENDATION SEE BELOW Normal [facility] Comment on above: Result Comment: ADA RECOMMENDED LIMIT 4.0 - 6.0 ADA THERAPEUTIC TARGET < 7.0 ACTION SUGGESTED > 7.0 Performed By: #### A 1C #### [facility] [address] [address] [address] Khari Meadows Glucose [Mass/Vol] 111 mg/dL Normal [facility] Comment on above: Performed By: #### A 1C #### [facility] [address] [address] [address] Khari Meadows HbA1c (Bld) [Mass fraction] 5.5 % Normal 4.5-6.2 [facility] Comment on above: Performed By: #### A 1C #### [facility] [address] [address] [address] Khari Meadows MICROALBUMIN, RAND URon - mALB <1.3 Normal <=30.0 [facility] Comment on above: Performed By: #### M ALBR #### [facility] [address] [address] [address] Khari Meadows PROF CHEM 8 (BAS METB)on Anion gap [Moles/Vol] 10.1 mmol/L Normal [facility] Comment on above: Performed By: #### B MP #### [facility] [address] [address] [address] Khari Meadows Calcium [Mass/Vol] 9.2 mg/dL Normal 8.5-10.1 [facility] Comment on above: Performed By: #### B MP #### [facility] [address] [address] [address] Khari Meadows Chloride [Moles/Vol] 104 mmol/L Normal 98-107 [facility] Comment on above: Performed By: #### B MP #### [facility] [address] [place] [address] Dr. Khari Meadows CO2 [Moles/Vol] 27.6 mmol/L Normal 21.0-32.0 [facility] Comment on above: Performed By: #### B MP #### [facility] [address] [address] [address] Khari Meadows Creatinine [Mass/Vol] 1.47 mg/dL Critically high 0.70-1.30 [facility] Comment on above: Performed By: #### B MP #### [facility] [address] [address] [address] Khari Meadows EGFR-AF TOGOLESE 57 mL/min/1.73m2 Critically low >=60 [facility] Comment on above: Performed By: #### B MP #### [facility] [address] [address] [address] Khari Meadows EGFR-NON AF TOGOLESE 47 mL/min/1.73m2 Critically low >=60 [facility] Comment on above: Performed By: #### B MP #### [facility] [address] [address] [address] Khari Meadows Glucose [Mass/Vol] 105 mg/dL Normal 74-106 [facility] Comment on above: Performed By: #### B MP #### [facility] [address] [address] [address] Khari Meadows Potassium [Moles/Vol] 3.7 mmol/L Normal 3.5-5.1 [facility] Comment on above: Performed By: #### B MP #### [facility] [address] [address] [address] Khari Meadows Sodium [Moles/Vol] 138 mmol/L Normal 136-145 [facility] Comment on above: Performed By: #### B MP #### [facility] [address] [address] [address] Khari Meadows Urea nitrogen [Mass/Vol] 34.0 mg/dL Critically high 7.0-18.0 [facility] Comment on above: Performed By: #### B MP #### [facility] [address] [address] [address] Khari Meadows Urea nitrogen/Creatinine [Mass ratio] 23.1 mg/mg Normal [facility] Comment on above: Performed By: #### B MP #### [facility] [address] [address] [address] Khari Meadows ALLIED HEALTHon 10-18-2018 ALLIED HEALTH HNO ID: [id number] thor: Darell Guevara (Rt): (none)Author Type: TechnicianType: Allied HealthFiled: 10/18/2018 2:01 PMNote Text: Radiology Service Progress NotePATIENT NAME: Agus YooAdrienne: [id number] OF SERVICE: October 18, 2018TIME: 1:58 PMPATIENT IDENTITY VERIFICATION COMPLETED USING TWO (2) METHODS: Patientconfirmed name verbally and Date of .PATIENT GENDER DATA: MalePATIENT RELEVANT IMPLANT DATA REVIEWED: YesCONTRAST INDUCED NEPHROPATHY RISK FACTORS: Patient age > 60 yearsCREATININE:Creatinine (POCT)Date Value Ref Range Htucly5310/18/2018 1.40 (A) 0.58 - 1.22 mg/dL Final eGFR-All Other Races (POCT)Date Value Ref Range Uhaooz3210/18/2018 50 mL/min/1.73 m2 Final eGFR- (POCT)Date Value Ref Range Uytelk8610/18/2018 >60 mL/min/1.73 m2 Final P.O.C.T. RESULTS: POC done: Yes, See Lab Tab October 18, 2018RADIOLOGIST NOTIFIED?: NoALLERGIES: Reviewed and unchangedCONTRAST ALLERGY: NO.PERIPHERAL IV ACCESS: Ambulatory: IV type: Existing peripheral IVutilized, Site assessment: Clean,Dry and Intact, Site dispositionDiscontinuedRADIOLO GY DEPARTMENT: MR; Exam(s) Completed: Body: ProstateSIGNED BY: Sandip Guevara 2017 1:58 PM [facility] MRI PROSTATE WO/W IVCONon Protein mass conc * * *Final Report* * *DATE OF EXAM: Oct 18 2018 2:47PM [facility] 0751 - MRI PROSTATE WO/W IVCON [...] and coronal high resolution T2-WI with small wuvox-gy-aaxa;Axial diffusion weighted images with multiple B-values and creation of ADC-maps;Dynamic contrast enhanced T1-weighted images through the prostate were also obtained before, during and after the administration of intravenous gadolinium. Subsequently, larger field of view 3D T1 weighted axial images were obtained through the pelvis.Prostate dimension, volume and pharmacokinetics were obtained using a semi-automated software ([employer]).M: MRPro_2Contrast: IV administration of 20 ml of [...] VALERA MD on Oct 18 2018 5:14PM [id number] Normal [facility] NURSING PROGon 10-18-2018 Protein mass conc HNO ID: [id number] thor: Aundrea (Rn) TIMOTHY Sauerervice: RadiologyAuthor Type: Registered NurseType: Nursing Progress NoteFiled: 10/18/2018 12:57 PMNote Text: Radiology Service Progress NotePATIENT NAME: Agus YooN: [id number] OF SERVICE: October 18, 2018TIME: 12:56 PMPATIENT [...] IntactSIGNED BY: Delia Dubon 2017 12:56 PM [facility] Vital Signs Date Time Vital Sign Value Performing Clinician Portia panchal 12-09-2024 08:19-0500 Diastolic blood pressure 78 mm[Hg] Brian TAPIA [facility] 12-09-2024 08:19-0500 Mean blood pressure 107 mm[Hg] Brian TAPIA [facility] 12-09-2024 08:19-0500 Systolic blood pressure 164 mm[Hg] Brian TAPIA [facility] 12-09-2024 08:11-0500 Blood Pressure Location Brian TAPIA [facility] 12-09-2024 08:11-0500 Diastolic blood pressure 85 mm[Hg] Brian TAPIA [facility] 12-09-2024 08:11-0500 Heart rate 66 /min Brian TAPIA [facility] 12-09-2024 08:11-0500 Respiratory rate 18 /min Brian TAPIA [facility] 12-09-2024 08:11-0500 Systolic blood pressure 180 mm[Hg] Brian TAPIA [facility] 09-21-2024 09:50-0500 Body height 182.9 cm Zoey Latham DO Work Phone: [facility] 09-21-2024 09:50-0500 Body mass index (BMI) [Ratio] 27.8 kg/m2 Zoey Latham DO Work Phone: [facility] 09-21-2024 09:50-0500 Body weight 92.99 kg Zoey Latham DO Work Phone: [facility] 09-21-2024 09:50-0500 Diastolic blood pressure 78 mm[Hg] Zoey Latham DO Work Phone: [facility] 09-21-2024 09:50-0500 Heart rate 74 /min Zoey Latham DO Work Phone: [facility] 09-21-2024 09:50-0500 SaO2% (BldA) [Mass fraction] 97 % Zoey Latham DO Work Phone: [facility] 09-21-2024 09:50-0500 Systolic blood pressure 158 mm[Hg] Zoey Latham DO Work Phone: [facility] 12-04-2023 08:29-0500 Blood Pressure Location Brian TAPIA [facility] 12-04-2023 08:29-0500 Diastolic blood pressure 84 mm[Hg] Brian TAPIA [facility] 12-04-2023 08:29-0500 Heart rate 80 /min Brian TAPIA [facility] 12-04-2023 08:29-0500 Respiratory rate 16 /min Brian TAPIA [facility] 12-04-2023 08:29-0500 Systolic blood pressure 132 mm[Hg] Brian TAPIA [facility] 08-01-2022 11:43-0400 Blood Pressure Location Brian TAPIA [facility] 08-01-2022 11:43-0400 Diastolic blood pressure 84 mm[Hg] Briangrady TAPIA [facility] 08-01-2022 11:43-0400 Heart rate 60 /min Briangrady TAPIA [facility] 08-01-2022 11:43-0400 Respiratory rate 18 /min Brian MARVEL [facility] 08-01-2022 11:43-0400 Systolic blood pressure 175 mm[Hg] Briangrady TAPIA [facility] Encounters Encounter Date Encounter Type Care Provider Facility Start: 06-09-2025 ambulatory Brian TAPIA Facili ty:[facility] Start: 06-02-2025 ambulatory Brian TAPIA Facili ty:[facility] Start: 12-09-2024 End: 12-09-2024 ambulatory Brian TAPIA Facility:[facility] Start: 12-09-2024 End: 12-09-2024 Patient encounter procedure Brian TAPIA [facility] Start: 11-25-2024 End: 11-25-2024 Clinisync Result Encounter Generic External Data Provider [facility] External [facility] Unsolicited Start: 11-25-2024 End: 11-25-2024 Clinisync Result Encounter Generic External Data Provider [facility] External Department Unsolicited Start: 09-21-2024 End: 09-21-2024 Bamboo flowsheet Zoey Latham DO Work Phone: [facility] Start: 09-21-2024 End: 09-21-2024 Bamboo flowsheet Zoey Latham DO Work Phone: [facility] Start: 09-21-2024 End: 09-21-2024 Office outpatient visit 40 minutes Zoey Latham DO Work Phone: [facility] Comment on above: Essential hypertensi on (CMS/HCC) (Primary Dx); Stage 3a chronic kidney disease (HCC) (CMS/HCC); Mixed hyperlipidemia (CMS/HCC); Primary osteoarthritis of both knees; Benign prostatic hyperplasia with lower urinary tract symptoms, symptom details unspecified; Elevated PSA; History of left hip replacement Start: 09-21-2024 End: 09-21-2024 ambulatory ZOEY LATHAM Not Available Start: 09-15-2024 End: 09-15-2024 Clinisync Result Encounter Wisam Shearer MESS ATTENDANT Work Phone: [facility] Unsolicited Start: 09-15-2024 End: 09-15-2024 Clinisync Result Encounter Wisam Shearer MESS ATTENDANT Work Phone: [facility] External Department Unsolicited Start: 03-16-2024 End: 03-16-2024 ambulatory ZOEY LATHAM Not Available Start: 12-04-2023 End: 12-04-2023 Patient encounter procedure Brian TAPIA [facility] Start: 11-27-2023 Clinisync Result Encounter Gen daniele External Data Provider [facility] External Department Unsolicited Start: 11-27-2023 Clinisync Result Encounter Gen daniele External Data Provider [facility] External Department Unsolicited Start: 03-03-2023 End: 03-04-[address] ZOEY LATHAM Facility: Start: 12-01-2022 End: 12-01-2022 Patient encounter procedure Brian TAPIA [facility] Start: 11-11-2022 End: 11-11-2022 Patient encounter procedure Brian TAPIA [facility] Start: 11-04-2022 End: 11-12-2022 Pre-admission assessment Brian TAPIA [facility] Start: 09-05-2022 End: 09-06-[address] ZOEY LATHAM Facility:[facility] Start: 08-13-2022 End: 08-13-2022 ambulatory Zoey Latham Facility:[facility] Start: 08-13-2022 End: 08-13-2022 ambulatory DO Zoey Latham Work Phone: [facility] Work Phone: Start: 08-13-2022 End: 08-13-2022 Patient encounter procedure DO Zoey Latham Work Phone: [facility] [place] Start: 08-01-2022 End: 08-01-2022 Patient encounter procedure Brian TAPIA [facility] Start: 07-03-2022 End: 07-04-[address] BRIAN TAPIA . Facility:[facility] Start: 05-06-2022 End: 05-07-[address] ZOEY LATHAM Facility:[facility] Start: 10-18-2018 Patient encounter procedure BRIAN TAPIA [facility] Procedures Date Procedure Procedure Detail Performing Clinician Start: 11-25-2024 MHPT PSA, DIAGNOSTIC Ge neric External Data Provider Start: 09-15-2024 ALL CBC WITH AUTO DIFF Wisam Juan Shearer MESS ATTENDANT Work Phone: Start: 11-27-2023 MHPT PSA, DIAGNOSTIC Ge neric External Data Provider Start: 11-11-2022 Transrectal biopsy o f prostate using ultrasound guidance Brian TAPIA Start: 07-03-[address] TEDDY LATHAM Comment on above: Performed By: #### P SAD #### [facility] [address] [place] [address] Dr. Khari Meadows Start: 04-03-2020 Transrectal biopsy [...] Treatment Date Care Activity Detail Author Start: 03-24-2025 End: 03-24-2025 Patient encounter procedure 03/24/2025 10:30 AM EDT Office Visit [facility] [address] [place] [id number] Zoey Latham, DO [address] [place] [address] [facility] Start: 11-19-2024 Screening for malign ant neoplasm of colon [facility] Start: 09-21-2024 End: 09-21-2024 Patient encounter procedure [facility] Comment on above: Arrived Start: 03-16-2024 End: 03-16-2024 Patient encounter procedure 03/16/2024 9:15 AM EDT Office Visit [facility] [address] [place] [phone] Zoey Latham, DO [address] [place] [address] [facility] Start: 08-13-2022 MR Prostate WO and W contrast IV [facility] Start: 08-13-2022 MR prostate wo/w con MR prostate wo/ w con [facility] Start: 08-17-2020 Pneumococcal Vaccine : 65+ Years (2 - PCV) Pneumococcal Vaccine: 65+ Years (2 - PCV) [facility] Start: 1950 Screening for malign ant neoplasm of colon [facility] Immunizations Immunization Date Immunization Notes Care Provider Fa cility 07-17-2024 influenza virus vacc ine, unspecified formulation Brian TAPIA [facility] 07-17-2024 influenza, high dose seasonal, preservative-free Zoey Latham Work Phone: [facility] 03-16-2024 Pneumococcal Conjuga te PCV 20 Wisam Manfred MESS ATTENDANT Work Phone: [facility] 08-01-2023 influenza virus vacc ine, unspecified formulation Brian TAPIA [facility] 08-01-2023 Influenza, Seasonal, Quadrivalent, Adjuvanted Generic Provider [facility] 08-01-2023 SARS-COV-2 (COVID-19 ) vaccine, mRNA, spike protein, LNP, PF, prema-sucrose, 30 mcg/0.3 mL Generic Provider [facility] 08-10-2022 influenza virus vacc ine, unspecified formulation Brian TAPIA [facility] 08-10-2022 Influenza, High-dose Seasonal, Quadrivalent, Preservative Free Generic Provider [facility] 08-10-2022 SARS-COV-2 (COVID-19 ) vaccine, mRNA, spike protein, LNP, bivalent, preservative free, 30 mcg/0.3 mL dose, prema-sucrose formulation Generic Provider [facility] 08-02-2021 influenza virus vacc ine, unspecified formulation Brian TAPIA [facility] 08-02-2021 Influenza, High-dose Seasonal, Quadrivalent, Preservative Free Generic Provider [facility] 08-02-2021 SARS-CoV-2 (COVID-19 ) mRNA BNT-162b2 vax Brian TAPIA [facility] Comment on above: Result Comment: 2023: TPV70 02-23-2021 SARS-CoV-2 (COVID-19 ) Ad26 vaccine, recombinant Brian TAPIA [facility] Comment on above: Result Comment: unab le to give exact dates 12-21-2020 SARS-CoV-2 (COVID-19 ) mRNA BNT-162b2 vax Brian TAPIA [facility] Comment on above: Result Comment: 2023: TPV70 11-30-2020 SARS-CoV-2 (COVID-19 ) mRNA BNT-162b2 vax Brian TAPIA [facility] Comment on above: Result Comment: 2023: TPV70 07-24-2020 influenza virus vacc ine, unspecified formulation Brian TAPIA [facility] 07-24-2020 Influenza, Seasonal, Quadrivalent, Adjuvanted Generic Provider [facility] 08-17-2019 influenza virus vacc ine, unspecified formulation Brian TAPIA [facility] 08-17-2019 influenza, high dose seasonal, preservative-free Wisam Manfred MESS ATTENDANT Work Phone: [facility] 08-17-2019 pneumococcal polysaccharide vaccine, 23 valent Generic Provider [facility] 10-01-2018 zoster vaccine recombinant Generic Provider [facility] 07-09-2018 influenza virus vacc ine, unspecified formulation Brian TAPIA [facility] 07-09-2018 influenza, high dose seasonal, preservative-free Wisam Manfred MESS ATTENDANT Work Phone: [facility] 07-09-2018 zoster vaccine recombinant Generic Provider [facility] 07-24-2017 influenza virus vacc ine, unspecified formulation Brian TAPIA [facility] 07-24-2017 influenza, high dose seasonal, preservative-free Wisam Manfred MESS ATTENDANT Work Phone: [facility] 03-04-2013 zoster vaccine, live Generic Provide r [facility] Healthcare Payers Date Payer Category Payer Private Health Insurance [id number] 2022 Self-pay 2022 Unknown [id number] 2020 Medicare [id number] 2015 Medicare [id number] 1959 Medicare [id number] 1959 Private Health Insurance [id number] 1949 Unknown [id number]. 593 1949 Unknown [id number] [id number]. 593 1949 Unknown [id number] [id number]. 593 1949 Unknown [id number] 2.16.840.1.249201.3.579.2. 593 1949 Unknown [id number] [id number]. 1259 1949 Unknown [id number] [id number]. 1259 1949 Unknown [id number] [id number]. 727 1949 Unknown [id number] 2.16.840.1.499703.3.579.2. 727 1949 Unknown [id number] [id number]. 727 Medicare Medicare [id number] Unknown [employer] [id number] Unknown [id number]. 531 Social History Date Type Detail Facility Start: 08-01-2022 End: 12-09-2024 Tobacco smoking status Ex-smoker (finding) [facility] Comment on above: Quit 40 + years ago Start: 09-23-2023 End: 03-16-2024 Sex Assigned At Male [facility] Start: 1950 Sex Assigned At Male [facility] Start: 09-12-[address] [facility] Never smoked tobacco [facility] Start: 09-12-2023 Tobacco use and exposure Smokeless tobacco non-user [facility] Healthcare Start: 09-23-2023 End: 09-21-2024 Alcohol intake Lifetime non-drinker (finding) [facility] Start: 09-23-2023 End: 03-16-2024 History of Social function [facility] Start: 09-12-2023 Alcohol Comment caffeine: 1-2 cups per day hot chocolate [facility] Start: 1950 Sex Assigned At Not on file [facility] Tobacco smoking status Never [facility] Comment on above: Quit 40 + years ago Functional Status Date Assessment Result Facility 12-09-2024 Functional Status N/A [facility] 12-04-2023 Functional Status N/A [facility] 08-01-2022 Functional Status N/A [facility] Clinical Notes 08-01-2022 to 12-09-2024 Note Date & Type Note Facility 12-09-2024 Hospital Discharge instructions Patient Education 12/09/2024 09:02:34 Benign Prostatic Hyperplasia Benign Prostatic Hyperplasia Benign prostatic hyperplasia (BPH) is an enlarged prostate gland that is caused by the normal aging process. The prostate may get bigger as a man gets older. The condition is not caused by cancer. The prostate is a walnut-sized gland that is involved in the production of semen. It is located in front of the rectum and below the bladder. The bladder stores urine. The urethra carries stored urine out of the body. An enlarged prostate can press on the urethra. This can make it harder to pass urine. The buildup of urine in the bladder can cause infection. Back pressure and infection may progress to bladder damage and kidney (renal) failure. What are the causes? This condition is part of the normal aging process. However, not all men develop problems from this condition. If the prostate enlarges away from the urethra, urine flow will not be blocked. If it enlarges toward the urethra and compresses it, there will be problems passing urine. What increases the risk? This condition is more likely to develop in men older than 50 years. What are the signs or symptoms? Symptoms of this condition include: Getting up often during the night to urinate. Needing to urinate frequently during the day. Difficulty starting urine flow. Decrease in size and strength of your urine stream. Leaking (dribbling) after urinating. Inability to pass urine. This needs immediate treatment. Inability to completely empty your bladder. Pain when you pass urine. This is more common if there is also an infection. Urinary tract infection (UTI). How is this diagnosed? This condition is diagnosed based on your medical history, a physical exam, and your symptoms. Tests will also be done, such as: A post-void bladder scan. This measures any amount of urine that may remain in your bladder after you finish urinating. A digital rectal exam. In a rectal exam, your health care provider checks your prostate by putting a lubricated, gloved finger into your rectum to feel the back of your prostate gland. This exam detects the size of your gland and any abnormal lumps or growths. An exam of your urine (urinalysis). A prostate specific antigen (PSA) screening. This is a blood test used to screen for prostate cancer. An ultrasound. This test uses sound waves to electronically produce a picture of your prostate gland. Your health care provider may refer you to a specialist in kidney and prostate diseases (urologist). How is this treated? Once symptoms begin, your health care provider will monitor your condition (active surveillance or watchful waiting). Treatment for this condition will depend on the severity of your condition. Treatment may include: Observation and yearly exams. This may be the only treatment needed if your condition and symptoms are mild. Medicines to relieve your symptoms, including: ?Medicines to shrink the prostate. ?Medicines to relax the muscle of the prostate. Surgery in severe cases. Surgery may include: ?Prostatectomy. In this procedure, the prostate tissue is removed completely through an open incision or with a laparoscope or robotics. ?Transurethral resection of the prostate (TURP). In this procedure, a tool is inserted through the opening at the tip of the penis (urethra). It is used to cut away tissue of the inner core of the prostate. The pieces are removed through the same opening of the penis. This removes the blockage. ?Transurethral incision (TUIP). In this procedure, small cuts are made in the prostate. This lessens the prostate's pressure on the urethra. ?Transurethral microwave thermotherapy (TUMT). This procedure uses microwaves to create heat. The heat destroys and removes a small amount of prostate tissue. ?Transurethral needle ablation (TUNA). This procedure uses radio frequencies to destroy and remove a small amount of prostate tissue. ?Interstitial laser coagulation (ILC). This procedure uses a laser to destroy and remove a small amount of prostate tissue. ?Transurethral electrovaporization (TUVP). This procedure uses electrodes to destroy and remove a small amount of prostate tissue. ?Prostatic urethral lift. This procedure inserts an implant to push the lobes of the prostate away from the urethra. Follow these instructions at home: Take schg-qsk-[id number] and prescription medicines only as told by your health care provider. Monitor your symptoms for any changes. Contact your health care provider with any changes. Avoid drinking large amounts of liquid before going to bed or out in public. Avoid or reduce how much caffeine or alcohol you drink. Give yourself time when you urinate. Keep all follow-up visits. This is important. Contact a health care provider if: You have unexplained back pain. Your symptoms do not get better with treatment. You develop side effects from the medicine you are taking. Your urine becomes very dark or has a bad smell. Your lower abdomen becomes distended and you have trouble passing urine. Get help right away if: You have a fever or chills. You suddenly cannot urinate. You feel light-headed or very dizzy, or you faint. There are large amounts of blood or clots in your urine. Your urinary problems become hard to manage. You develop moderate to severe low back or flank pain. The flank is the side of your body between the ribs and the hip. These symptoms may be an emergency. Get help right away. Call 911. Do not wait to see if the symptoms will go away. Do not drive yourself to the hospital. Summary Benign prostatic hyperplasia (BPH) is an enlarged prostate that is caused by the normal aging process. It is not caused by cancer. An enlarged prostate can press on the urethra. This can make it hard to pass urine. This condition is more likely to develop in men older than 50 years. Get help right away if you suddenly cannot urinate. This information is not intended to replace advice given to you by your health care provider. Make sure you discuss any questions you have with your health care provider. Document Revised: 04/30/2022 Document Reviewed: 04/30/2022 [employer] Patient Education 2023 [employer]. Follow Up Care 12/04/2023 09:27:51 With:MARVEL ELLIS, Brian Cartagena, URL Address: [address] [place], [place] [id number]- When: Unknown [facility] 12-09-2024 Note Patient Education Urology Benign Prostatic Hyperplasia Benign prostatic hyperplasia (BPH) is an enlarged prostate gland that is caused by the normal aging process. The prostate may get bigger as a man gets older. The condition is not caused by cancer. The prostate is a walnut-sized gland that is involved in the production of semen. It is located in front of the rectum and below the bladder. The bladder stores urine. The urethra carries stored urine out of the body. An enlarged prostate can press on the urethra. This can make it harder to pass urine. The buildup of urine in the bladder can cause infection. Back pressure and infection may progress to bladder damage and kidney (renal) failure. What are the causes? This condition is part of the normal aging process. However, not all men develop problems from this condition. If the prostate enlarges away from the urethra, urine flow will not be blocked. If it enlarges toward the urethra and compresses it, there will be problems passing urine. What increases the risk? This condition is more likely to develop in men older than 50 years. What are the signs or symptoms? Symptoms of this condition include: ??? Getting up often during the night to urinate. ??? Needing to urinate frequently during the day. ??? Difficulty starting urine flow. ??? Decrease in size and strength of your urine stream. ??? Leaking (dribbling) after urinating. ??? Inability to pass urine. This needs immediate treatment. ??? Inability to completely empty your bladder. ??? Pain when you pass urine. This is more common if there is also an infection. ??? Urinary tract infection (UTI). How is this diagnosed? This condition is diagnosed based on your medical history, a physical exam, and your symptoms. Tests will also be done, such as: ??? A post-void bladder scan. This measures any amount of urine that may remain in your bladder after you finish urinating. ??? A digital rectal exam. In a rectal exam, your health care provider checks your prostate by putting a lubricated, gloved finger into your rectum to feel the back of your prostate gland. This exam detects the size of your gland and any abnormal lumps or growths. ??? An exam of your urine (urinalysis). ??? A prostate specific antigen (PSA) screening. This is a blood test used to screen for prostate cancer. ??? An ultrasound. This test uses sound waves to electronically produce a picture of your prostate gland. Your health care provider may refer you to a specialist in kidney and prostate diseases (urologist). How is this treated? Once symptoms begin, your health care provider will monitor your condition (active surveillance or watchful waiting). Treatment for this condition will depend on the severity of your condition. Treatment may include: ??? Observation and yearly exams. This may be the only treatment needed if your condition and symptoms are mild. ??? Medicines to relieve your symptoms, including: ? Medicines to shrink the prostate. ? Medicines to relax the muscle of the prostate. ??? Surgery in severe cases. Surgery may include: ? Prostatectomy. In this procedure, the prostate tissue is removed completely through an open incision or with a laparoscope or robotics. ? Transurethral resection of the prostate (TURP). In this procedure, a tool is inserted through the opening at the tip of the penis (urethra). It is used to cut away tissue of the inner core of the prostate. The pieces are removed through the same opening of the penis. This removes the blockage. ? Transurethral incision (TUIP). In this procedure, small cuts are made in the prostate. This lessens the prostate's pressure on the urethra. ? Transurethral microwave thermotherapy (TUMT). This procedure uses microwaves to create heat. The heat destroys and removes a small amount of prostate tissue. ? Transurethral needle ablation (TUNA). This procedure uses radio frequencies to destroy and remove a small amount of prostate tissue. ? Interstitial laser coagulation (ILC). This procedure uses a laser to destroy and remove a small amount of prostate tissue. ? Transurethral electrovaporization (TUVP). This procedure uses electrodes to destroy and remove a small amount of prostate tissue. ? Prostatic urethral lift. This procedure inserts an implant to push the lobes of the prostate away from the urethra. Follow these instructions at home: ??? Take rpgf-aoo-oheasmp and prescription medicines only as told by your health care provider. ??? Monitor your symptoms for any changes. Contact your health care provider with any changes. ??? Avoid drinking large amounts of liquid before going to bed or out in public. ??? Avoid or reduce how much caffeine or alcohol you drink. ??? Give yourself time when you urinate. ??? Keep all follow-up visits. This is important. Contact a health care provider if: ??? You have unexplained back pain. ??? Your symptoms do not get (more content not included)... [facility] 09-21-2024 Evaluation note Diagnosis Essential hypertension (CMS/HCC)- Primary Unspecified essential hypertension Stage 3a chronic kidney disease (HCC) (CMS/HCC) Mixed hyperlipidemia (CMS/HCC) Mixed hyperlipidemia Primary osteoarthritis of both knees Benign prostatic hyperplasia with lower urinary tract symptoms, symptom details unspecified Elevated PSA Elevated prostate specific antigen (PSA) History of left hip replacement [id number] Discharge instructions Patient Education 12/04/2023 09:18:08 [...] treatment? Where to find more information [employer]: www.cancer.org [employer]: www.auanet.org Contact a health care [...] provider. Document Revised: 04/07/2022 Document Reviewed: 04/07/2022 [employer] Patient Education 2022 [employer]. Follow Up Care 12/01/2022 12:39:52 With:MARVEL ELLIS, Brian Cartagena, URL Address: [facility] [address] , [place] [address] [phone] When:Within 1 Year(s) Comments:w/ PSA [facility] [place] 02-06-2023 Hospital Discharge instructions Patient Education 12/01/2022 [...] have oneof these risk factors: ?Being of -Pakistani descent. ?Having a family history of prostate [...] you: Are older than age 55. Are -Pakistani. Have a father, brother, or uncle who [...] 07/23/2018 Document Revised: 09/24/2018 Document Reviewed: 07/23/2018 [employer] Patient Education 2020 [employer]. Follow Up Care 10/29/2022 15:01:27 With:MARVEL ELLIS, Brian Cartagena, URL Address: [facility] [address] [place] [address] [phone] When:12/01/2023 Comments:PSA [facility] 01-17-2023 Hospital Discharge instructions Patient Education 11/11/2022 [...] for your post-operative appointment in 1-2 weeks [phone] or [phone] Follow Up Care 10/29/2022 14:59:58 With:Brian TAPIA Address: [facility] [address] [place] [address]- Business (1) When:11/25/2022 10:30:48 [facility]10-07-2022 Hospital Discharge instructions Patient Education 08/01/2022 12:24:45 [...] have oneof these risk factors: ?Being of -Pakistani descent. ?Having a family history of prostate [...] you: Are older than age 55. Are -Pakistani. Have a father, brother, or uncle who [...] 07/23/2018 Document Revised: 09/24/2018 Document Reviewed: 07/23/2018 [employer] Patient Education 2020 [employer]. Follow Up Care 06/28/2021 10:33:47 With:MARVEL ELLIS, Brian Cartagena, URL Address: [address] [place], [place] [id number]- When: Unknown [facility] evaluation + Plan note No data available for this section [facility] evaluation + Plan note Future Appointments Appointment Date:12/01/2022 10:45:00 AM Scheduled Provider:Brian TAPIA MD Location:[facility] Appointment Type:URO Office Visit Diagnostic Tests Pending * Prostate Histology ([facility]) 11/11/22 * Prostate [facility] Future App[facility]ments Appointment Date:12/01/2022 10:45:00 AM Scheduled Provider:Brian TAPIA MD Location:[facility] Appointment Type:[facility] Future Appointments Appointment Date:12/04/2023 08:30:00 AM Scheduled Provider:Brian TAPIA MD Location:[facility] Appointment Type:URO Office Visit Diagnostic Tests Pending * PSA Total 12/01/[address] [facility] evaluation + Plan note Future Appointments Appointment Date:12/09/2024 08:00:00 AM Scheduled Provider:Brian TAPIA MD Location:[facility] Appointment Type:URO Office Visit Diagnostic Tests Pending * PSA Total 12/04/[address] [facility] evaluation + Plan note Future Appointments Appointment Date:06/02/2025 08:00:00 AM Scheduled Provider: Location:[facility] Appointment Type:URO Nurse Visit Appointment Date:06/09/2025 08:45:00 AM Scheduled Provider:Brian TAPIA MD Location:[facility] Appointment Type:URO Office Visit Diagnostic Tests Pending * PSA Total 04/25/[address] [facility] evaluation noteNo assessment information available [facility] Work Phone: Hospital Discharge instructions No data available for this section [facility] No data available for this section [facility] Summary Purpose Family History No Family History Records FoundNo Family History Records FoundNo Family History Records FoundNo Family History Records Found No data available for this section No Family History Records Found No data available [...] section and content) DATE CREATED AUTHOR 10/20/2018 [facility] DATE CREATED AUTHOR AUTHOR'S ORGANIZ ATION 08/18/2022 [facility] DATE CREATED AUTHOR AUTHOR'S ORGANIZ ATION 08/19/2022 [facility] Specialist DATE CREATED AUTHOR AUTHOR'S ORGANIZ ATION 03/08/2023 [facility] [place] [facility] DATE CREATED AUTHOR AUTHOR'S ORGANIZ ATION 09/24/2024 [facility] d[facility] Specialists EPIC DATE CREATED AUTHOR AUTHOR'S ORGANIZ ATION 12/11/[address] [facility] Patient Care team informatio n (unrecognized section and content) Team Status: Inactive Member Role Status Dates Brian Tapia MD Attending Provider Active Zoey Latham DO Primary Care Provider Active Team Status: Active Member Role Status Dates Zoey Latham DO Primary Care Provider Active Cross Country Coach Relationship Specialty Start Date End Date Zoey Latham DO [address] [place] [address] PCP - ACO Reach 03/19/23 Zoey Latham DO [address] [place] [address] PCP - General Internal Medicine 03/03/23 Cross Country Coach Relationship Specialty Start Date End Date Zoey Latham DO [address] [place] [address] PCP - ACO Reach 03/19/23 Zoey Latham DO [address] [place] [address] PCP - General Internal Medicine 03/03/23 Cross Country Coach Relationship Specialty Start Date End Date Zoey Latham DO [address] [place] [address] PCP - ACO Reach 03/19/23 Zoey Latham, DO [address] [place] [address] PCP - General Internal Medicine 03/03/23 Cross Country Coach Relationship Specialty Start Date End Date Zoey LathamDO [address] [place] [address] PCP - ACO Reach 03/19/23 Zoey Latham DO [address] [place] [address] PCP - General Internal Medicine 03/03/23 Goals [...] BE BASED ON THE PRIMARY CLINICAL RECORDS. [employer] provides no warranty or guarantee of the accuracy or completeness of information in this document.
[2025-03-16 07:28] LABS: Creatinine Urine Random 131.31 mg/dL (20.00-300.00); Microalbumin Urine Random <1.3 mg/dL (<=30.0)
[2025-03-16 08:15] LABS: Alanine Aminotransferase 27 U/L (16-63); Albumin Globulin Ratio 0.8; Albumin Level 3.1 g/dL (3.4-5.0); Alkaline Phosphatase 98 U/L (46-116); Anion Gap 13.7; Aspartate Amino Transferase 19 U/L (15-37); BUN Creatinine Ratio 16.7; Bilirubin Total 0.4 mg/dL (0.2-1.0); Carbon Dioxide 25.7 mmol/L (21.0-32.0); Chloride 106 mmol/L (98-107); Chol HDL Ratio 2.6; Cholesterol 120 mg/dL (<=200); Estimated GFR (African America >60 (>=60 mL/min/1.73m^2); Estimated GFR (Non-African Ame >60 (>=60 mL/min/1.73m^2); Globulin 3.8 g/dL; Glucose 106 mg/dL (74-106); HDL Cholesterol 47 mg/dL (40-60); LDL Cholesterol Calculated 64.6 mg/dL; Potassium 4.4 mmol/L (3.5-5.1); Sodium 141 mmol/L (136-145); Total Protein 6.9 g/dL (6.4-8.2); Triglycerides 42 mg/dL (<=150); VLDL CHOLESTEROL 8.4 mg/dL
== END 2025-03-16 07:00 | disposition home or self-care (01) ==
LOC: LAB 06:59
PROVIDERS: PCP Internal Medicine; Visit Provider Internal Medicine
DX: I12.9 Hypertensive chronic kidney disease with stage 1 through stage 4 chronic kidney disease, or unspecified chronic kidney disease (principal); N18.31 Chronic kidney disease, stage 3a; E78.2 Mixed hyperlipidemia; R97.20 Elevated prostate specific antigen [PSA]
CPT/HCPCS: 36415; 80053; 80061; 82043; 82570

== ENCOUNTER 2025-06-01 08:59 | Outpatient (OUT) | payer MEDICARE, OTHER, SELFPAY ==
--- OUTSIDE RECORDS SUMMARY | 2025-06-01 09:04 | XMS_ITS | Encounter Summary ---
Author Organization [facility] Address [address] [place] [address] Care Team Providers Care Commercial Property Administrator Name Role Phone Erik Bains DO Unavailable [phone] Erik Bains DO Primary Care Provider [phone] Encounter Details Date Type Department Care Team (Late st Contact Info) Description 04/10/2025 Results Follow-Up [facility] [address] [facility] [address] [place] [id number] Erik Bains DO [address] [facility] [address] [place] [address] Social History Tobacco Use Types Packs/Day Years Used Date Smoking Tobacco: Never Smokeless Tobacco: Never Alcohol Use Standard Drinks/Week Comments Never 0 (1 standard drink = 0.6 oz pure alcohol) caffeine: 1-2 cups per day hot chocolate PHQ-2 Answer Date Recorded Patient Health Questionnaire-2 Score 0 03/22/2025 Sex and Gender Information Value Date Recorded Sex Assigned at Not on file Legal Sex Male 7:07 PM EDT Gender Identity Not on file Sexual Orientation Not on file documented as of this encounter Miscellaneous Notes * Result Encounter Note - Khoa Riojas MA - 04/10/2025 4:12 PM EDT Attempted to call patient again and the vm is full * Result Encounter Note - Khoa Riojas MA - 04/10/2025 3:07 PM EDT Called patient and the line rang busy * Result Encounter Note - Erik Bains DO - 04/10/2025 12:16 PM EDT Call neg cologuard documented in this encounter Plan of Treatment Upcoming Encounters Date Type Department Care Team (Late st Contact Info) Description 09/06/2025 10:45 AM EST Office Visit [facility] [address] [facility] [address] [place] [address] documented as of this encounter Visit Diagnoses Not on filedocumented in this encounter Care Teams Commercial Property Administrator Relationship Specialty Start Date End Date Erik Bains DO [address] [facility] [address] [place] [address] PCP - ACO Reach 03/19/23 Erik Bains DO [address] [facility] [address] [place] [address] PCP - General Internal Medicine 03/03/23 documented as of this encounter
--- OUTSIDE RECORDS SUMMARY | 2025-06-01 09:04 | XMS_ITS | Encounter Summary ---
Author Organization [facility] Address [address] [facility] [place] [address] Care Team Providers Care General Engineering Teacher Name Role Phone Erik Bains DO Unavailable [phone] Erik Bains DO Primary Care Provider [phone] Encounter Details Date Type Department Care Team (Late st Contact Info) Description 09/15/2023 Orders Only [facility] [address] [facility] [address] [place] [address] A, Unknown Practice [address] [place], [place] [id number] Social History Tobacco Use Types Packs/Day Years Used Date Smoking Tobacco: Never Smokeless Tobacco: Never Alcohol Use Standard Drinks/Week Comments Never 0 (1 standard drink = 0.6 oz pure alcohol) caffeine: 1-2 cups per day hot chocolate Sex and Gender Information Value Date Recorded Sex Assigned at Not on file Legal Sex Male 7:07 PM EDT Gender Identity Not on file Sexual Orientation Not on file documented as of this encounter Plan of Treatment Upcoming Encounters Date Type Department Care Team (Late st Contact Info) Description 09/06/2025 10:45 AM EST Office Visit [facility] [address] [facility] [address] [place] [address] documented as of this encounter Procedures Procedure Name Priority Date/Time Associated Diagnosis Comments SCANNED LABS Routine 09/15/2023 1:28 PM EST SCANNED LABS Routine 09/15/2023 11:58 AM EST documented in this encounter Results * SCANNED LABS (09/15/2023 1:28 PM EST) us Unknown Practice A LAB CHG PERFORMABLES Final Re sult * SCANNED LABS (09/15/2023 11:58 AM EST) us Unknown Practice A LAB CHG PERFORMABLES Final Re sult documented in this encounter Visit Diagnoses Not on filedocumented in this encounter Care Teams General Engineering Teacher Relationship Specialty Start Date End Date Erik Bains DO [address] [place] [address] PCP - ACO Reach 03/19/23 Erik Bains DO [address] [place] [address] PCP - General Internal Medicine 03/03/23 documented as of this encounter
--- OUTSIDE RECORDS SUMMARY | 2025-06-01 09:04 | XMS_ITS | Clinical Summary ---
Author Organization [facility] Address [address] [place], [place] [id number] Care Team Providers Care Snow Groomer Name Role Phone Unavailable Primary Care Provider [...]
--- OUTSIDE RECORDS SUMMARY | 2025-06-01 09:04 | XMS_ITS | Clinical Summary ---
Author Organization [facility] Address [address] [place] [address] Care Team Providers Care Prize Fighter Name Role Phone Erik Bains DO Unavailable [phone] Erik Bains DO Primary Care Provider Allergies No known active allergies Medications tamsulosin (Flomax) 0.4 MG 24 hr capsule Take 1 capsule by mouth every other day Active diclofenac sodium 1 % gel as directed Externally up to 4 times per day for 14 day(s) 2 Active simvastatin (Zocor) 40 MG tabletIndications :Pure hypercholesterole vinny, unspecified TAKE 1 TABLET BY MOUTH EVERY DAY AT NIGHT 90 tablet 3 4 Active amLODIPine (Norvasc) 10 MG tabletIndications :Essential (primary) hypertension TAKE 1 TABLET BY MOUTH ONCE EVERY NIGHT 90 tablet 3 5 Active metoprolol succinate XL (Toprol-XL) 25 MG 24 hr tabletIndications :Essential hypertension TAKE 1 TABLET BY MOUTH EVERY DAY FOR 90 DAYS 90 tablet 3 5 Active Active Problems Problem Noted Date Diagnosed Date Primary osteoarthritis of both knees 09/21/2024 History of left hip replacement 09/21/2024 Elevated PSA 09/23/2023 Benign prostatic hyperplasia 09/09/2023 Stage 3a chronic kidney disease 09/09/2023 Essential hypertension 09/09/2023 Mixed hyperlipidemia 09/09/2023 Resolved Problems Problem Noted Date Diagnosed Date Resolved Date CKD (chronic kidney disease) stage 2, GFR 60-89 ml/min 03/16/2024 09/21/2024 BMI 28.0-28.9,adult 09/23/2023 03/16/20 24 Encounters Date Type Department Care Team Description 04/10/2025 Results Follow-Up [facility] Internal Medicine [address] [facility] [place] [address] Erik Bains DO 03/22/2025 11:00 AM EDT Office Visit [facility] [address] [facility] [address] [place] [address] Erik Bains DO Essential hypertension (Primary Dx); Medicare annual wellness visit, subsequent; Advance care planning; Stage 3a chronic kidney disease ([facility]); Mixed hyperlipidemia ; Benign prostatic hyperplasia with lower urinary tract symptoms, symptom details unspecified; Elevated PSA; Colon cancer screening 03/22/2025 Bamboo flowsheet [facility] [address] [facility] [address] [place] [address] Erik Bains DO 03/22/2025 Travel 03/16/2025 Clinisync Result Encounter [facility] External Department Unsolicited Erik Bains DO from Last 3 Months Immunizations Immunization Administration Dates Next Due Influenza, High Dose Seasona l, Preservative Free 07/17/2024,08/17/2019,07/09/2018,07/24 Influenza, High-dose Seasona l, Quadrivalent, Preservative Free 08/10/2022,08/02/2021 Influenza, Seasonal, Quadriv alent, Adjuvanted 08/01/2023,07/24/2020 Influenza, Unspecified 07/17/2024,2022,08/10/2022,08/02,07/24/2020,08/17/2019,07/09/2018 ,07/24/2017 Pneumococcal Conjugate PCV 20 03/16/2024 Pneumococcal Polysaccharide [...] Sign Reading Time Taken Comments Blood Pressure 128/64 03/22/2025 11:08 AM EDT Pulse 62 03/22/2025 11:08 AM EDT Temperature - - Respiratory Rate - - Oxygen Saturation 98% 03/22/2025 11: 08 AM EDT Inhaled Oxygen Concentration - - Weight 92.9 kg (204 lb 11.2 oz) 025 11:08 AM EDT Height 182.9 cm (6') 03/22/2025 11:08 AM EDT Body Mass Index 27.76 03/22/2025 11:08 AM EDT Plan of Treatment Upcoming Encounters Date Type Department Care Team (Late st Contact Info) Description 09/06/2025 10:45 AM EST Office Visit [facility] [address] [place] [phone] Health Maintenance Due Date Last Done Comments CT Colonography 1949 Colonoscopy 1950 FIT 1949 FOBT 1950 Sigmoidoscopy 1950 Influenza Vaccine (#1) 2025 , 07/17/2024, 08/01/2023, Additional history exists Medicare Annual Wellness (AWV) 03/22/2026 0 03/22/2025, 03/12/2023, 11/08/2021 Colorectal Cancer Screening 04/03/2028 FIT-DNA 04/03/2028 04/03/2025, 10/27, 11/19/2021 Pneumococcal Vaccine: 65+ Years Completed 4, 08/17/2019 Procedures Procedure Name Priority Date/Time Associated Diagnosis Comments LAB COLOGUARD COLON CANCER SCREEN Routine 04/03/2025 7:15 AM EDT Colon cancer screening ALL LIPID PROFILE (FASTING) Routine 03/16/2025 7:09 AM EDT [facility] CMP (CMP) (FOR REMOTE [facility] USE) Routine 03/16/2025 7:09 AM EDT [facility] MICROALB CREAT RATIO RANDOM Routine 03/16/2025 6:55 AM EDT from Last 3 Months Results * Cologuard?? colon cancer screening (04/03/2025 7:15 AM EDT) NONINV COLON CA DNA+OCC BLD SCRN STL-IMP Negative Negative 04/07/2025 12:34 PM EDT [employer] (CLIA #:[id number]) Comment: The Cologuard (TM) test was performed on this specimen. NEGATIVE TEST RESULT. A negative Cologuard result [...] (Tab Arriola al, N Engl J Med 2014;370(14):1286- 1297) The normal value (reference range) for this assay is negative. COLOGUARD RE-SCREENING RECOMMENDATION: Periodic colorectal cancer screening is an important part of preventive healthcare for asymptomatic individuals at average risk for colorectal cancer. Following a negative Cologuard result, the [place] Cancer Society and U.S. Multi-Society Task Force screening guidelines recommend a Cologuard re-screening interval of 3 years. References: [place] [employer] Society Guideline for Colorectal Cancer Screening: https://www.cancer.org/cancer/jinup-saamuh-wdxzic/hxmqnodrp-ncztsrwhl-bodxlxi/ac s-rec ommendations.html.; Heriberto DK, Lillian CR, Emma SamanoK, Colorectal Cancer Screening: Recommendations for Physicians and Patients from the U.S. Multi-Society Task Force on Colorectal Cancer Screening , Am J Gastroenterology 2017; 112:3322-8668. TEST DESCRIPTION: Composite algorithmic analysis of stool [...] (Tab Arriola al, N Engl J Med 2014;370(14):8665-2369.) Cologuard may produce a false negative or false positive result (no colorectal cancer or precancerous polyp present at colonoscopy follow up). A negative Cologuard test result does not guarantee the absence of CRC or advanced adenoma (pre-cancer). The current Cologuard screening interval is every 3 years. ([place] Cancer Society and U.S. Multi-Society Task Force). Cologuard performance data in a 10,000 patient pivotal study using colonoscopy as the reference method can be accessed at the following location: www.[employer]works.CityNews/results. Additional description of the Cologuard test process, warnings and precautions can be found at www.DrNaturalHealingrd.CityNews. Stool specimen (specimen) 04/03/2025 7:15 AM EDT 04/04/2025 7:54 AM EDT Erik Bains DO LAB MOLECULAR DIAGNOSTICS OR DERABLES Final Result [employer] (CLIA #:[id number]) [place] [address] [address], * (ABNORMAL) [facility] CMP (CMP) (FOR REMOTE [facility] USE) (03/16/2025 7:09 AM EDT) SODIUM 141 136 - 145 mmol/L TBH POTASSIUM 4.4 3.5 - 5.1 mmol/L TBH CHLORIDE 106 98 - 107 mmol/L TBH CARBON DIOXIDE 25.7 21.0 - 32.0 mmol/L TBH ANION GAP 13.7 TBH GLUCOSE 106 74 - 106 mg/dL TBH BLOOD UREA NITROGEN 19.0(H) 7.0 - 18.0 mg/dL TBH CREATININE 1.14 0.70 - 1.30 mg/dL TBH TBH EGFR-AF [place] >60 >=60 mL/min/1. 73m 2 TBH TBH EGFR-NON AF [place] >60 >=60 mL/min/1. 73m 2 TBH BUN CREATININE RATIO 16.7 TBH CALCIUM 9.0 8.5 - 10.1 mg/dL TBH BILIRUBIN TOTAL 0.4 0.2 - 1.0 mg/dL TBH ASPARTATE AMINO TRANSFERASE 19 15 - 37 U/L TBH ALANINE AMINOTRANSFERASE 27 16 - 63 U/L TBH ALKALINE PHOSPHATASE 98 46 - 116 U/L TBH TOTAL PROTEIN 6.9 6.4 - 8.2 g/dL TBH ALBUMIN LEVEL 3.1(L) 3.4 - 5.0 g/dL TBH GLOBULIN 3.8 g/dL TBH ALBUMIN GLOBULIN RATIO 0.8 TBH 03/16/2025 7:09 AM EDT 03/16/2025 7:09 AM EDT Narrative CLINISYNC - 03/16/2025 8:17 AM EDT Erik MATHEWISYPARTH Final Result Performing Organization Address [facility] de Phone Number [facility] * ALL LIPID PROFILE (FASTING) (03/16/2025 7:09 AM EDT) TRIGLYCERIDES 42 <=150 mg/dL TB CHOLESTEROL 120 <=200 mg/dL TB HDL CHOLESTEROL 47 40 - 60 mg/dL TB Comment: > or =60 mg/dl - LOW CARDIOVASCULAR RISK <40 mg/dl - HIGH CARDIOVASCULAR RISK LDL CHOLESTEROL CALCULATED 64.6 mg/dL TB Comment: <100 mg/dl OPTIMAL 100-129 mg/dl NEAR OR ABOVE OPTIMAL 130-159 mg/dl BORDERLINE HIGH 160-189 mg/dl HIGH >190 mg/dl VERY HIGH VLDL CHOLESTEROL 8.4 mg/dL TB CHOL HDL RATIO 2.6 TB Comment: 3.3 - 4.4 LOW RISK 4.4 - 7.1 AVERAGE RISK 7.1 - 11.0 MODERATE RISK >11.0 HIGH RISK 03/16/2025 7:09 AM EDT 03/16/2025 7:09 AM EDT Narrative CLINISYNC - 03/16/2025 8:17 AM EDT Erik ELLIS Final Result Performing Organization Address [facility] Phone Number [facility] * TB MICROALB CREAT RATIO RANDOM (03/16/2025 6:55 AM EDT) MICROALBUMIN URINE RANDOM <1.3 <=30.0 mg/dL TB CREATININE URINE RANDOM 131.31 20.00 - 300.00 mg/dL TB 03/16/2025 6:55 AM EDT 03/16/2025 7:09 AM EDT Narrative CLINISYNC - 03/16/2025 7:35 AM EDT Erik Bains DO CLINISYNC Final Result CLINISYNC TB from Last 3 Months Insurance MEDICARE [facility] INSURANCE Advance Directives * Full Code (Latest Code Status on File) Date Activated Date Inactivated Comments 03/16/2024 9:57 AM Care Teams Prize Fighter Relationship Specialty Start Date End Date Erik Bains DO [address] [place] [address] PCP - ACO Reach 03/19/23 Erik Bains DO [address] [place] [address] PCP - General Internal Medicine 03/03/23
[2025-06-01 10:31] LABS: Prostate Specific Antigen Dx 4.61 ng/mL (<=4.00)
== END 2025-06-01 09:00 | disposition home or self-care (01) ==
LOC: LAB 09:02
PROVIDERS: PCP Internal Medicine; Visit Provider Urology
DX: R97.20 Elevated prostate specific antigen [PSA] (principal)
CPT/HCPCS: 36415; 84153

== ENCOUNTER 2025-08-30 06:35 | Outpatient (OUT) | payer MEDICARE, OTHER, SELFPAY ==
--- OUTSIDE RECORDS SUMMARY | 2025-08-30 06:40 | XMS_ITS | Clinical Summary ---
Author Organization [facility] Healthcare Address [address] [place] [address] Care Team Providers Care Screen Stretcher Name Role Phone HersonJaimeErik Carl DO Unavailable [phone] Dirk Najera MD Primary Care Provider [phone] Allergies No known active allergies Medications MedicationSigDispense QuantityRefillsLast FilledStart DateEnd DateStatus tamsulosin (Flomax) 0.4 MG 24 hr capsule Take 1 capsule by mouth every other dayActive diclofenac sodium 1 % gel as directed Externally up to 4 times per day for 14 day(s)2Active amLODIPine (Norvasc) 10 MG tablet Indications:Essential (primary) hypertensionTAKE 1 TABLET BY MOUTH ONCE EVERY NIGHT 90 tablet 5Active metoprolol succinate XL (Toprol-XL) 25 MG 24 hr tablet Indications:Essential hypertensionTAKE 1 TABLET BY MOUTH EVERY DAY FOR 90 DAYS 90 tablet 5Active simvastatin (Zocor) 40 MG tablet Indications:Pure hypercholesterolemia, unspecifiedTAKE 1 TABLET BY MOUTH EVERY DAY AT NIGHT 90 tablet 5Active Active Problems ProblemNoted DateDiagnosed DatePrimary osteoarthritis of both knees09/21/2024 History of left hip grqrtckoqqy63/27/2024Elevated PSA09/23/2023enign prostatic lsepymzpwbf85/15/2023Stage 3a chronic kidney horodlp8009/09/2023Essential nisxoyekqsbk41/15/2023Mixed cqaprvujeownzl08/15/2023 Resolved Problems ProblemNoted DateDiagnosed DateResolved DateCKD (chronic kidney disease) stage 2, GFR 60-89 ml/min411/MI 28.0-28.9,adult Encounters DateTypeDepartmentCare ZwgoZjifgloodfn31/04/2025Orders Only [facility] [address] [place] [address] Mary Buck LPN Essential hypertension; Stage 3a chronic kidney disease ([facility]); Mixed bbjqalfpoljtar00/24/2025Refill [facility] [address] [place] [address] Erik Bains DO Pure hypercholesterolemia, rqmaxslizxk78/07/2025linisync Result Encounter [facility] External Department Unsolicited Provider, Generic External Data from Last 3 Months Immunizations ImmunizationAdministration DatesNext DueInfluenza, High Dose Seasonal, Preservative Free08/09/2025,07/17/2024,08/10/2022,08/17/2019,07/09/2018, 07/24/2017Influenza, High-dose Seasonal, Quadrivalent, Preservative Free 08/10/2022,08/02/2021Influenza, Seasonal, Quadrivalent, Ducofqmgfb46/07/2023, 07/24/2020Influenza, Srpxsrmmmen62/22/2024,08/01/2023,08/10/2022,08/02/2021, 07/24/2020,08/17/2019,07/09/2018,07/24/2017Pneumococcal Conjugate PCV 20 4Pneumococcal Polysaccharide [id number]-5 (COVID-19) vaccine, mRNA, spike protein, LNP, PF, prema-sucrose, 30 mcg/0.3 mL07/17/2024, 08/01/20231692EKCX-EMY-4 (COVID-19) vaccine, mRNA, spike protein, LNP, bivalent, preservative free, 30 mcg/0.3 mLdose, prema-sucrose bdosuhkzgvp28/16/2022Zoster, Qvtiqzvfyzt55/07/2018,07/09/2018Zoster, live03/04/2013 Family History Medical HistoryRelationNameCommentsDiabetesFatherHypertensionFatherRelationName WplhzaWmwmeoiyQkozunid3Slfabtrli9EwgmdyPanhhodyHenmqzMtqycxcoGbhv3 Social History Tobacco UseTypesPacks/DayYears UsedDateSmoking Tobacco: NeverSmokeless Tobacco: Never Tobacco Cessation:Counseling Given: Not Answered Alcohol UseStandard Drinks/WeekCommentsNever0 (1 standard drink = 0.6 oz pure alcohol)caffeine: 1-2 cups per day hot chocolatePHQ-2AnswerDate RecordedPatient Health Questionnaire-2 Thkzg397Sex and Gender InformationValueDate RecordedSex Assigned at BirthNot on fileLegal GxpVvhe8901/07/2023 7:07 PM EDT Gender IdentityNot on fileSexual OrientationNot on file Last Filed Vital Signs Vital SignReadingTime TakenCommentsBlood Xsmgfldc867/64003/22/2025 11:08 AM EDT Blxpn0122/28/2025 11:08 AM EDTTemperature--Respiratory Rate--Oxygen Saturation 98%03/22/2025 11:08 AM EDTInhaled Oxygen Concentration--Mmtawv21.9 kg (204 lb 11.2 oz)03/22/2025 11:08 AM ZKLLxkwgh878.9 cm (6')03/22/2025 11:08 AM EDTBody Mass Index27.76003/22/2025 11:08 AM EDT Plan of Treatment DateTypeDepartmentCare Team (Latest Contact Info)Mxfwmnwpzya17/12/2025 10:45 AM ESTOffice Visit [facility] [address] [place] [address] Health MaintenanceDue DateLast DoneCommentsCOVID-19 Vaccine ( season) 5007/17/2024, 08/01/2023, 08/02/2021, Additional history existsMedicare Annual Wellness (AWV)6003/22/2025, 03/12/2023, 11/08/2021neumococcal Vaccine: 65+ IwvsxZaimwvezx61/22/2024, 08/17/2019Colorectal Cancer Screening DiscontinuedFIT-RPZRtgotctfhiqv96/09/2025, 11/19/2021, 11/19/2021Influenza TdinfwmRbvkggafn08/15/2025, 07/17/2024, 07/17/2024, Additional history existsCT ColonographyDiscontinuedColonoscopyDiscontinuedFITDiscontinuedFOBTDiscontinued SigmoidoscopyDiscontinued Procedures Procedure NamePriorityDate/TimeAssociated DiagnosisCommentsMHPT PSA, DIAGNOSTIC Flgtkdo0606/01/2025 9:09 AM EDT LAB COLOGUARD?? COLON CANCER RPAVFWMvrofrx30/09/2025 7:15 AM EDT Colon cancer screening from Last 3 Months or Most Recently Relevant to Health Maintenance Results * (ABNORMAL) MHPT PSA, DIAGNOSTIC (06/01/2025 9:09 AM EDT)ComponentValueRef RangeTest MethodAnalysis TimePerformed AtPathologist SignaturePROSTATE SPECIFIC ANTIGEN DX4.61(H)<=4.00 ng/mLTBHSpecimen (Source)Anatomical Location / LateralityCollection Method / VolumeCollection TimeReceived Time06/01/2025 9:09 AM EDT06/01/2025 9:10 AM EDT Narrative CLINISYNC - 06/01/2025 10:46 AM EDT Authorizing ProviderResult TypeResult StatusGeneric External Data Provider CLINISYNCFinal ResultPerforming OrganizationAddressCity/State/ZIP CodePhone Number CLINISYCOUNTS INCLUDE [facility] BEDS AT [facility] * Cologuard?? colon cancer screening (04/03/2025 7:15 AM EDT)ComponentValueRef RangeTest MethodAnalysis TimePerformed AtPathologist SignatureNONINV COLON CA DNA+OCC BLD SCRN STL-LZWLfkjejcpYgfqzgrp59/13/2025 12:34 PM EDTEXPuuilo (CLIA #:[id number])Comment: The Cologuard (TM) test was performed on [...] (Tab Arriola al, N Engl J Med 2014;370(14):5133-2804) The normal value (reference range) for this assay is negative. COLOGUARD RE-SCREENING RECOMMENDATION: Periodic colorectal cancer screening is an important part ofpreventive healthcare for asymptomatic individuals at average risk for colorectal cancer. Followinga negative Cologuard result, the [place] Cancer Society and U.S. Multi-Society Task Force screening guidelines recommend a Cologuard re-screening interval of 3 years. References: [place] [employer] Guideline for Colorectal Cancer Screening: https://www.cancer.or g/cancer/jjkif-slwiab-vyefej/adyqhulsm-vjvjqhgay-rzxxjah/acs-recommendations.htm alin; Heriberto PEDRO, Lillian WATTS, Emma SamanoK, Colorectal Cancer Screening: Recommendations for Physicians and Patients from the U.S. Multi-Society Task Force on Colorectal Cancer Screening , Am J Gastroenterology 2017; 112:7768-2672. TEST DESCRIPTION: Composite algorithmic analysis of stool DNA-biomarkers with hemoglobin immunoassay. ?? Quantitative values of individual biomarkers are not reportable and are not associated with individual biomarker result reference ranges. Cologuard is intended for colorectal cancer screening ofadults of either sex, 45 years or older, [...] screened with both Cologuard and colonoscopy. (Tab Pate et al, N Engl J Med 2014;370(14):7807-5599.) Cologuard may produce a false negative or false positive result (no colorectal cancer or precancerous polyp present at colonoscopy follow up). A negative Cologuard test result does not guarantee the absence of CRC or advanced adenoma (pre-cancer). The current Cologuard screening interval is every 3 years. ([place] Cancer Society and U.S. Multi-Society Task Force). Cologuard performance data in a 10,000 patient pivotal study using colonoscopy as the reference method can be accessed at the following location: www.[employer].Zesty/results. Additional description of the Cologuard test process, warnings and precautions can be found at www.CogniCor Technologiesoguard.Zesty. Specimen (Source)Anatomical Location / LateralityCollection Method / Volume Collection TimeReceived TimeStool specimen (specimen)04/03/2025 7:15 AM EDT 04/04/2025 7:54 AM EDT Narrative Authorizing ProviderResult TypeResult StatusJemarlo Bains [facility] MOLECULAR DIAGNOSTICS ORDERABLESFinal ResultPerforming OrganizationAddressCity/State/ZIP CodePhone Number [employer] (CLIA #:[id number]) [address] [place] [phone], from Last 3 Months or Most Recently Relevant to Health Maintenance Insurance Advance Directives * Full Code (Latest Code Status on File) Date ActivatedDate InactivatedComments03/16/2024 9:57 AM Care Teams Team MemberRelationshipSpecialtyStart DateEnd Date Erik Bains DO [address] [place] [address] PCP - ACO Reach03/19/23 Dirk Najera MD [address] [place] [address] PCP - GeneralInternal Medicine07/20/25
--- OUTSIDE RECORDS SUMMARY | 2025-08-30 06:40 | XMS_ITS | CCD ---
Author Organization [facility] Care Team Providers Care Ammonia Nitrate Operator Name Role Phone BRIAN TAPIA Unavailable Unavailable ANAYELI GREER Primary Care Physician MD Brian Tapia Attending Provider DO Zoey Latham Primary Care Provider [phone] Zoey Latham Primary Care Unavailable Brian Tapia Attending Unavailable Brian Tapia Admitting Unavailable NAO, DR GREER Admitting Unavailable NOA, DR GREER [...] NOA, DR GREER Admitting Unavailable NOA, DR RGEER Attending Unavailable NOA, DR GREER Primary Care Unavailable NOA, DR GREER Consulting Unavailable Zoey Latham DO Unavailable Zoey Latham DO Primary Care Provider [phone] ZOEY LATHAM Attending Unavailable ZOEY LATHAM Attending Unavailable ZOEY LATHAM Referring Unavailable Brian TAPIA Attending Unavailable Brian TAPIA Attending Unavailable Brian TAPIA Attending Unavailable Brian TAPIA Attending Unavailable Medications Current Medications MedicationDrug Class(es)DatesSig (Normalized)Sig (Original)acetaminophen 325 mg / HYDROcodone bitartrate 7.5 mg oral tablet (2 sources)Opioid AgonistStart: 16-38-8293uxrv 1 tablet by mouth once, then take 1 tablet by mouth every hourNorco 325 mg-7.5 mg oral tablet 1 tab(s), Oral, Once, 1 tab(s), Refill(s) 0, Take 1 hour prior to procedure. Don't drive or operate machinery while taking this medication., [facility]/pharmacy #[id number], 182, cm, 08/01/22 11:50:00 EDT, Height/Length Dosing, 93.2, kg, 08/01/22 11:50:00 EDT, We... Start Date: 10/29/22 Status: OrderedamLODIPine 10 mg oral tablet (15 sources)Dihydropyridine Calcium Channel BlockerStart: 72-80-6975djCLSIAuvh 10 mg Tab Refills(s) 0 Start Date: 12/04/23 Status: Ordered Repeat number: 1 aspirin 81 mg oral tablet (13 sources)Platelet Aggregation Inhibitor, Nonsteroidal Anti-inflammatory Drug Start: 69-93-9725qgey 81 mg by mouth once dailyaspirin 81 mg, Oral, Daily, Refills(s) 0 Start Date: 03/23/20 Status: Ordered Repeat number: 1 End: 26-23-6375uwkzsbs 81 MG EC tablet Take by mouth Daily. 09/21/2024 DiscontinuedMaxidex (7 sources)CorticosteroidStart: 27-93-7264Kibcaba Eye-Both, QID, Refill(s) 0 Start Date: 10/14/19 Status: Ordered Repeat number: 1Start: 09-65-4760Dipqgun Eye-Both, QID, Refill(s) 0 Start Date: 10/14/19 Status: Ordereddiclofenac sodium 0.01 mg/mg topical gel (11 sources)Nonsteroidal Anti-inflammatory DrugStart: 53-44-5176pykbxjcgxl sodium 1 % gel as directed Externally up to 4 times per day for 14 day(s) 08/17/2022 Activedutasteride 0.5 mg oral capsule (3 sources)5-alpha Reductase InhibitorStart: 53-85-6537idfl 1 capsule by mouth once dailydutasteride 0.5 mg Cap 0.5 mg = 1 cap(s), Oral, Daily, # 30 cap(s), Refills(s) 11, Pharmacy: [facility]/pharmacy #[id number], 183, cm, 12/09/24 8:19:00 EST, Height/Length Dosing, 96.8, kg, 12/09/24 8:19:00 EST, Weight Dosing Start Date: 12/09/24 Status: Ordered Quantity: 30.0 Unit: cap(s) Repeat number: 12 hydroCHLOROthiazide 25 mg / triamterene 37.5 mg oral tablet (4 sources)Potassium-sparing Diuretic, Thiazide DiureticStart: 06-28-2021 hydrochlorothiazide-triamterene 25 mg-37.5 mg Tab 1 tab(s), Daily, Refill(s) 0 Start Date: 06/28/21 Status: Nzqlwrc60 hr metoprolol succinate 25 mg extended release oral tablet (15 sources)beta-Adrenergic BlockerStart: 84-70-0909zjsn 1 tablet by mouth once dailymetoprolol succinate XL (Toprol-XL) 25 MG 24 hr tablet Indications: Essential hypertension TAKE 1 TABLET BY MOUTH EVERY DAY FOR 90 DAYS 90 tablet 3 12/29/2024 ActiveStart: 46-31-7338webs 1 tablet by mouth once dailymetoprolol succinate XL (Toprol-XL) 25 MG 24 hr tablet Indications: Essential hypertension (CMS/HCC) TAKE 1 TABLET BY MOUTH EVERY DAY FOR 90 DAYS 90 tablet 3 01/12/2024 ActiveStart: 50-88-4704nodxjvzssi Refills(s) 0 Start Date: 12/04/23 Status: Ordered Repeat number: 1Start: 20-13-4719lcnuatxmqk Refills(s) 0 Start Date: 12/04/23 Status: Orderedtake 1 tablet by mouth once dailymetoprolol succinate XL (Toprol-XL) 25 MG 24 hr tablet Take by mouth Daily. 0 Activesimvastatin 40 mg oral tablet (19 sources)HMG-CoA Reductase InhibitorStart: 72-42-7212gtqd 1 tablet by mouth once dailysimvastatin (Zocor) 40 MG tablet Indications: Pure hypercholesterolemia, unspecified TAKE 1 TABLET BY MOUTH EVERY DAY AT NIGHT 90 tablet 3 08/15/2024 ActiveStart: 29-13-2072ccyv 1 tablet by mouth once daily simvastatin (Zocor) 40 MG tablet Indications: Pure hypercholesterolemia, unspecified (CMS/HCC) TAKE1 TABLET BY MOUTH EVERY NIGHT 90 tablet 3 08/24/2023 ActiveStart: 66-49-5659mvknalurjry Oral, Refills(s) 0 Start Date: 10/14/19 Status: Ordered Repeat number: 1Start: 25-15-5227rvsdiuhszhn Oral, Refills(s) 0 Start Date: 10/14/19 Status: Orderedtamsulosin hydrochloride 0.4 mg oral capsule (18 sources)alpha-Adrenergic BlockerStart: 25-09-1763bjnx 1 capsule by mouth every other dayFlomax 0.4 mg Cap 0.4 mg = 1 cap(s), Oral, Every other day, # 45 cap(s), Refills(s) 3, Pharmacy: [facility]/pharmacy #[id number], 183, cm, 12/04/23 8:32:00 EST, Height/Length Dosing, 91, kg, 12/04/23 8:32:00 EST,Weight Dosing Start Date: 04/05/24 Status: Ordered Quantity: 45.0 Unit: cap(s) Repeat number: 4take 1 capsule by mouth every twenty-four hours in the morningtamsulosin (Flomax) 0.4 MG 24 hr capsule Take 1 capsule by mouth in the morning. Active Problems Active Problems Problem ClassificationProblemDateDocumented DateEpisodic/Chronic Administrative/social admission (2 sources)Patient encounter status; Translations: [Other specified counseling] 27-76-1180XtrsmkfmQbkyyiy kidney disease (20 sources)Chronic kidney disease stage 3A ; Translations: [Stage 3a chronic kidney disease (HCC)]Onset: 09-09-2023 Resolved: 950584-80-2652PpkelsbDbswjql kidney disease (1 source)Chronic kidney disease; Translations: [CHRONIC KIDNEY DISEASE STAGE 3A]Onset: 06-63-6658Yyvfyiey mellitus without complication (2 sources)Prediabetes; Translations: [Impaired fasting glucose]Onset: 61-75-1198DyicxptkOdsfolpbf of lipid metabolism (20 sources)Hypercholesterolemia; Translations: [Pure hypercholesterolemia, unspecified]Onset: 069647-12-7707XtkxvliCogbxbrly hypertension (20 sources)Hypertensive disorder; Translations: [Essential (primary) hypertension]Onset: 343526-93-8912JvgamzoUauujpxsblm of prostate (20 sources)Benign prostatic hypertrophy with outflow obstruction; Translations: [Benign prostatic hyperplasia with lower urinary tract symptoms]Onset: 73-12-4252JhbfhjsDcpquuirzxcv with complications and secondary hypertension (1 source)Hypertensive chronic kidney disease with stage 1 through stage 4 chronic kidney disease, or unspecified chronic kidney disease; Translations: [HTN CKD W/STAGE 1-4 CKD/UNS CKD]Onset: 22-47-8014UebdpdqGxhynwxlxixd conditions of male genital organs (9 sources)Chronic prostatitis; Translations: [Chronic prostatitis]Onset: 15-63-8110OpblvwnEowjkuqbyvmxwn (10 sources)Primary gonarthrosis, bilateral; Translations: [Bilateral primary osteoarthritis of knee]Onset: 101411-06-5099GksprejQjyzl connective tissue disease (10 sources)History of repair of hip joint; Translations: [Presence of left artificial hip joint]Onset: 392972-11-5567LyjmgvgXvckd nutritional; endocrine; and metabolic disorders (8 sources)Body mass index 25-29 - xqsavtyohg73-71-8172HmejqezlSqbej screening for suspected conditions (not mental disorders or infectious disease) (20 sources)Raised prostate specific antigen; Translations: [Elevated prostate specific antigen [PSA]]Onset: 45-93-9354WccmnphnWmdrrhwlvfed (1 source)Unknown / UNK(Unknown)Onset: 10-18-2018 Past or Other Problems Problem ClassificationProblemDateDocumented DateEpisodic/ChronicOther nutritional; endocrine; and metabolic disorders (11 sources)Overweight in adulthood with body mass index of 25 or more but less than 30; Translations: [Body mass index (BMI) 28.0-28.9, adult]Onset: 09-23-2023 Resolved: 484275-15-0847Ypebwkcu Results Test NameValueInterpretationReference RangeFacilityAmbulatory Visit Summaryon 13-84-9046Qtowrbiujm Visit SummaryAmbulatory Visit Summary AGUS ORTIZ Carl :1950 Visit Date:06/09/2025 Ambulatory Visit Instructions Your Diagnosis Elevated PSA BPH with urinary obstruction Chronic prostatitis Your Care Team Attending Physician - MARVEL ELLIS, Brian Cartagena Primary Care Physician - ANAYELI GREER MD This Is Your Medications List dutasteride (dutasteride 0.5 mg Cap) Contact prescribing physician if questions or concerns amlodipine (amLODIPine 10 mg Tab) aspirin metoprolol simvastatin Procedures Performed Transrectal biopsy of prostate using ultrasound guidance (11/11/2022), Transrectal biopsy of prostate using ultrasound guidance (04/03/2020), Transurethral water vapor ablation of prostate (10/13/2017), TRUS (transrectal ultrasound) guided cryoablation of prostate (07/08/2011), Hip replacement, Jaw and temporomandibular joint operations. Discharge Vitals Heart Rate (Peripheral) 72 Blood Pressure 169/78 Height 183 cm Height 72 in Weight 90 kg Weight 198.416 lb BMI 26.87 What to do next Scheduled Follow-Up Appointments Thursday2025 8:45 AM EDT With: Brian TAPIA MD Where: [facility] [address] [address]- You Need to Schedule the Following Appointments Follow Up with Brian TAPIA MD, URL When: Where: [address] [place] [address]- Medications What How Much When Instructions Unchanged dutasteride (dutasteride 0.5 mg Cap) 1 Capsules By Mouth Every day Unchanged amlodipine (amLODIPine 10 mg Tab) [...] gland that is caused by the normal agingprocess. The prostate may get bigger as a man gets older. The condition is not caused by cancer. The prostate is a walnut-sized gland that is involved in the production of semen. It is located in front of the rectum and below the bladder. The bladder stores urine. The urethra carries stored urine ou t of the body. An enlarged prostate can press on the urethra. This can make it harder to pass urine. The buildup of urine in the bladder can cause infection. Back pressure and infection may progress to bladder damage and kidney (renal) failure. What are the causes? This condition is part of the normal aging process. However, not all men develop problems from thiscondition. If the prostate enlarges away from the [...] prostate gland. Your health care provider may refe (more content not included)...[facility] HospitalU[facility] Office/Clinic Noteon [id number] Office/Clinic NoteUrology Office/Clinic Note Chief Complaint 6 month fu PSA HPI Staff 74 year old mal 6 month f/u w/PSA Previous DX: Elevated PSA, BPH w/ urinary obstruction, chronic prostatitis PSA: 06/01/25- 4.61 Pt was to d/c Tamsulosin after 2 months of starting Dutasteride 0.5mg qd. so patient stopped tamsulosin and is taking dutasteride Patient denies any dysuria or gross hematuria. Denies any flank or abdomen pain. no symptoms History of Present Illness Tests reviewed: reviewed [...] HPI. Physical Exam Vitals & Measurements HR: 72(Peripheral) BP: 169/78 HT: 72 in HT: 183 cm WT: 198.416 lb WT: 90 kg BMI: 26.87 General Appearance: alert, no distress, well nourished, well developed male. Assessment/Plan 1. Elevated PSA (R97.20: Elevated prostate specific antigen [PSA]) PSA 02/2020 - 17.9 06/19/21 - 10.03 07/03/22 - 12.97 11/27/23 - 12.27 11/25/24 - 10.38 [5-CARLOS MANUEL started 12/09/24] 06/01/25 - 4.61 (9.2) MRI of prostate 09/2018 - PI-RADS 2. MRI of prostate 08/13/22 [facility] [place] - No evidence of prostate malignancy. Prostate volume 99 mL. S/p TRUS/bx 01/02/17, 04/03/20, and 11/11/22 - neg. JACOBO 12/04/23 ~50g, benign. PSA decrease as expected although level remains elevated overall. Likely attributed to prostate volume. Will cont to closely monitor PSA. -PSA in 12 mos Follow up then or sooner if needed. 2. 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 MRI of prostate 08/13/22 [facility] [place] - Prostate volume 99 mL. Pt states he has had great results since REZUM, it changed my life for the better . Prescribed Dutasteride 0.5 mg qd at prior OV. Pt was to d/c Flomax after being on 5-CARLOS MANUEL for 2 months. Denies SEs from Dutasteride. IPSS 1. Pt very pleased with urination. No longer getting up during the night to void since REZUM. Explained to pt that we can always repeat REZUM if clinically necessary. -Cont 5-CARLOS MANUEL, call with any concerns or changes in urination 3. Chronic prostatitis (N41.1: Chronic prostatitis) UA today negative for blood or infection. Asymptomatic. -Cont sx monitoring Follow-up With When Contact Information MARVEL ELLIS, Brian Cartagena, [place] [address]- Additional Instructions: 12 mos w/ PSA Patient Education Benign Prostatic Hyperplasia I, Ashleigh Phoenix, personally scribed for Dr. Tapia on 06/09/2025 09:27:20. . Documentation recorded by the scribe, Ashleigh Phoenix, accurately reflects the services(s) I performed and decisions made by me. Authenticated by Dr. Tapia on 06/09/2025 09:31:31. Problem List/Past Medical History Ongoing BMI 29.0-29.9,adult [...] mg Tab aspirin, 81 mg, Oral, Daily dutasteride 0.5 mg Cap, 0.5 mg= 1 cap(s), Oral, Daily, 11 refills metoprolol simvastatin, Oral Allergies No Known Allergies [...] Date Status Comments influenza virus vaccine, inactivated 07/17/2024 Recorded pneumococcal 20-valent conjugate vaccine 03/16/2024 Recorded influenza virus vaccine, inactivated 08/01/2023 Recorded influenza virus vaccine, inactivated 08/10/2022 Recorded SARS-CoV-2 (COVID-19) [id number].[id number] 08/10/2022 Recorded influenza virus vaccine, inactivated 08/02/2021 Recorded NASRA (more content not included)...[facility] HospitalComment on above:Result Comment: Electronically Signed By: Brian TAPIA MD\.br\Date and Time Signed: 06/09/25 09:31 EDT\.br\Electronically Co-Signed By: Ashleigh Phoenix\.br\Date and Time Co-Signed: 06/09/2509:27 EDT\.br\Electronically Co-Signed By: Ashleigh Phoenix\.br\Date and Time Co-Signed: 06/09/25 09:27 EDTMHPT PSA, DIAGNOSTICon 67-11-7308Szemrakottgvgq and review of laboratory resultsAbnormalNOMS HealthcarePROSTATE SPECIFIC ANTIGEN DX4.61 ng/mLHighNINF - 4.00 ng/mLNOMS HealthcareCLINISYNCNOMS HealthcareTBH MICROALB CREAT RATIO RANDOM on 93-98-5458ABOXSDGIET URINE ATYOTF582.31 mg/dL20.00 - 300.00 mg/dLNOMS HealthcareMICROALBUMIN URINE RANDOM<1.3NINF - 30.0 mg/dLNOMS HealthcareCLINISYNC NOMS HealthcareAmbulatory Visit Summaryon 03-40-1836Ojoigooalf Visit Summary Ambulatory Visit Summary AGUS ORTIZ [...] AM EDT With: Where: [facility] [address] [place] [address]- Thursday 8:45 AM EDT With: Brian TAPIA MD Where: [facility] [address] [place] [address]- You Need to Schedule the Following Appointments Follow Up with Brian TAPIA MD, URL When: Where: [facility] [place] [address]- Medications What How Much When Instructions New dutasteride (dutasteride 0.5 mg Cap) 1 Capsules By Mouth Every day Refills: 11 Pickup at [facility]/pharmacy #[id number] Unchanged tamsulosin (Flomax 0.4 mg Cap) 1 [...] physician if questions or concerns Pharmacy Information [facility]/pharmacy #[id number]: [address], [place] [id number] [phone] Allergies No Known Allergies Problems Ongoing - [...] gland that is caused by the normal agingprocess. The prostate may get bigger as a man gets older. The condition is not caused by cancer. The prostate is a walnut-sized gland that is involved in the production of semen. It is located in front of the rectum and below the bladder. The bladder stores urine. The urethra carries stored urine ou t of the body. An enlarged prostate can press on the urethra. This can make it harder to pass urine. The buildup of urine in the bladder can cause infection. Back pressure and infection may progress to bladder damage and kidney (renal) failure. What are the causes? This condition is part of the normal aging process. However, not all men develop problems from thiscondition. If the prostate enlarges away from the [...] may remain in y (more content not included)...[facility] HospitalUrology Office/Clinic Noteon [id number] Office/Clinic NoteUrology Office/Clinic Note Chief Complaint 1yr PSA HPI Staff 1 year f/u with PSA. Denies all urinary symptoms. Dx: elevated PSA, BPH wit urinary obstruction (Rezum 2017) and chronic prostatitis *tamsulosin 0.4mg every other day PSA: 02/2020 - .06/19/21 - .03 07/03/22.11/27/2310.2111/25/24.38 History of Present Illness Tests reviewed: reviewed [...] prostate specific antigen [PSA]) PSA 02/2020 - .9 06/19/21 - 10.03 07/03/22.11/27/23.11/25/24 - 10.38 MRI of prostate 09/2018 - PI-RADS 2. MRI of prostate 08/13/22 [facility] [place] - No evidence of prostate malignancy. Prostate volume 99 mL. S/p TRUS/bx 01/02/17, 04/03/20, and 11/11/22 - neg. JACOBO 12/04/23 ~50g, benign. PSA remains elevated overall however this is likely attributed to pt's enlarged prostate. Will contto monitor. -PSA due in 6 months -Starting Dutasteride 2. 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 MRI of prostate 08/13/22 [facility] [place] - Prostate volume 99 mL. Taking Flomax [...] Flomax once pt has been on prostate duct installer for at least 2 months 3. Chronic prostatitis (N41.1: Chronic prostatitis) UA today negative for blood and infection. Asymptomatic. -Cont sx monitoring Follow-up With When Contact Information MARVEL ELLIS, Brian Cartagena, [address] [place] [address]- Additional Instructions: 6 mos w/ PSA Patient Education Benign Prostatic Hyperplasia Ashleigh Vargas, personally scribed for Dr. Tapia on 12/09/2024 [...] influenza virus vaccine, inactivated (more content not included)...[facility] HospitalComment on above:Result Comment: Electronically Signed By: Brian TAPIA MD\.br\Date and Time Signed: 12/09/24 09:08 EST\.br\Electronically Co-Signed By: Ashleigh Phoenix.br\Date and Time Co- Signed: 12/09/2508:07 ESTMHPT PSA, DIAGNOSTICon 83-29-4334Jbclrozhxdjwfh and review of laboratory resultsAbnormalNOMS HealthcarePROSTATE SPECIFIC ANTIGEN DX 10.38 ng/mLHighNINF - 4.00 ng/mLNOMS HealthcareCLINISYNCNOMS HealthcareALL CBC WITH AUTO DIFFon 18-78-2955JZQGVKDAP ABSOLUTE AUTO0.1N[facility] Healthcare Basophils/100 WBC (Bld)0.6 %0.2 - 2.0 %NOMS HealthcareEosinophils/100 WBC (Bld) 2.8 %0.9 - 7.0 %[facility] Medical CenterErythrocyte distribution width (RBC) [Ratio]12.7 %11.0 - 15.0 %NOMUniversity HospitalHematocrit (Bld) [Volume fraction]48.3 %42.0 - 54.0 %NOMUniversity HospitalHemoglobin (Bld) [Mass/Vol]16.4 g/dL14.0 - 18.0 g/dLNevada Regional Medical CenterIMMATURE GRANULOCYTES ABS AUTO0.02NOKansas City VA Medical CenterImmature granulocytes/100 WBC (Bld)0.2 %0.0 - 0.5 %[facility] HealthcareInterpretation and review of laboratory resultsAbnormalNOKansas City VA Medical CenterLYMPHOCYTES ABSOLUTE AUTO2.4 NOMUniversity HospitalLymphocytes/100 WBC (Bld)27.5 %20.5 - 60.0 %[facility] ServicesH (RBC) [Entitic mass]30.5 pg25.9 - 34.0 pgHeartland Behavioral Health ServicesHC (RBC) [Mass/Vol]34 g/dL29.9 - 35.2 g/dLHeartland Behavioral Health ServicesV (RBC) [Entitic vol]89.9 fL80.0 - 94.0 fL [facility] CenterMONOCYTES ABSOLUTE AUTO0.7NOKansas City VA Medical CenterMonocytes/100 WBC (Bld) 7.8 %1.7 - 12.0 %NOMUniversity HospitalNEUTROPHILS ABSOLUTE AUTO5.4NOKansas City VA Medical Center Neutrophils/100 WBC (Bld)61.1 %43.0 - 75.0 %NOMUniversity HospitalPlatelet mean volume (Bld) [Entitic vol]8.4 fLLow9.5 - 13.5 fLNevada Regional Medical CenterTB EO #0.3NOMS Wayne HospitalTB OZL978SLVWFreeman Neosho Hospital RBC5.37NOFreeman Neosho Hospital WBC8.8NOKansas City VA Medical CenterCLNORTH BALDWIN INFIRMARYYNEdgefield County HospitalMHPT PSA, DIAGNOSTICon 11-27-2023 Interpretation and review of laboratory resultsAbnormalNevada Regional Medical CenterPROSTATE SPECIFIC ANTIGEN DX12.27 ng/mLHighNINF - 4.00 ng/mLNSSM Health CareCLINISYNEdgefield County HospitalGLYCOHEMOGLOBIN A1Con 11-26-1814ZFK RECOMMENDATIONSEE BELOWWayne HospitalComment on above:Result Comment: ADA RECOMMENDED LIMIT 4.0 - 6.0 ADA THERAPEUTIC TARGET < 7.0 ACTION SUGGESTED > 7.0Performed By: #### A1C #### [facility] [address] [address] [address] Khari MeadowsGlucose [Mass/Vol]108 mg/dLNoProMedica Defiance Regional HospitalComment on above:Performed By: #### A1C #### [facility] [address] [address] [address] Khari MeadowsHbA1c (Bld) [Mass fraction]5.4 %Normal4.5-6.2The [facility] HospitalComment on above:Performed By: #### A1C #### [facility] [address] [place] [address] Dr. Khari MeadowsMICROALBUMIN, RAND URon 19-00-3389aQUZ<1.3Normal<=30.0The [facility] HospitalComment on above:Performed By: #### MALBR #### [facility] [address] [place] [address] Dr. Khari MeadowsPROF CHEM 8 (BAS METB)on 34-89-0218Lhdrj gap [Moles/Vol]10.9 mmol/LNormalAdams County Regional Medical CenterComment on above:Performed By: #### BMP #### [facility] [address] [address] [address] Khari MeadowsCalcium [Mass/Vol]9.0 mg/dLNormal8.5-10.1The [facility] Comment on above:Performed By: #### BMP #### [facility] [address] [address] [address] Khari MeadowsChloride [Moles/Vol]105 mmol/NYqcqab31-463Tmu [facility] Comment on above:Performed By: #### BMP #### [facility] [address] [place] [address] Dr. Khari MeadowsCO2 [Moles/Vol]27.7 mmol/OLvhlvd93.0-32.0The [facility] Comment on above:Performed By: #### BMP #### [facility] [address] [address] [address] Khari MeadowsCreatinine [Mass/Vol]1.24 mg/dLNormal0.70-1.30The [facility] HospitalComment on above:Performed By: #### BMP #### [facility] [address] [address] [address] Khari JaramilloGFR-AF MALAYSIAN>60Normal>=60The [facility] HospitalComment on above:Performed By: #### BMP #### [facility] [address] [address] [address] Khari JaramilloGFR-NON AF CGBSYFCS16 mL/min/1.36o7Qcxupcudvr low>=60The [facility] HospitalComment on above:Performed By: #### BMP #### [facility] [address] [address] [address] Khari MeadowsGlucose [Mass/Vol]95 mg/gDGgxwji80-030Nfd [facility] Comment on above:Performed By: #### BMP #### [facility] [address] [address] [address] Khari MeadowsPotassium [Moles/Vol]3.6 mmol/LNormal3.5-5.1[facility] Comment on above:Performed By: #### BMP #### [facility] [address] [address] [address] Khari MeadowsSodium [Moles/Vol]140 mmol/ODkhtnf670-702Zhc [facility] Comment on above:Performed By: #### BMP #### [facility] [address] [address] [address] Khari MeadowsUrea nitrogen [Mass/Vol]26.0 mg/dLCritically high7.0-18.0The [facility] HospitalComment on above:Performed By: #### BMP #### [facility] [address] [address] [address] Khari MeadowsUrea nitrogen/Creatinine [Mass ratio]21.0 mg/mgNormalThe [facility] HospitalComment on above:Performed By: #### BMP #### [facility] [address] [address] [address] Khari GAFFNEYon 36-84-0520Lzoskofcz Ql (U)NegativeNormalNEGATIVEAdams County Regional Medical CenterComment on above:Performed By: #### UA #### [facility] [address] [address] [address] Khari MeadowsClarity (U)CLEARNormalCLEARAdams County Regional Medical CenterComment on above: Performed By: #### UA #### [facility] [address] [address] [address] Khari Nielsenlor (U)LT. YELLOWNormalYELLOWAdams County Regional Medical CenterComment on above:Performed By: #### UA #### [facility] [address] [place] [address] Dr. Khari MeadowsGlucose Ql (U)NegativeNormalNEGATIVEAdams County Regional Medical CenterComment on above:Performed By: #### UA #### [facility] [address] [address] [address] Khari MeadowsHemoglobin Ql (U)NegativeNormalNEGTrinity Health System [facility] on above:Performed By: #### UA #### [facility] [address] [place] [address] Dr. Khari MeadowsKetones Ql (U)NegativeNormalNEGATIVEAdams County Regional Medical CenterComment on above:Performed By: #### UA #### [facility] [address] [address] [address] Khari MeadowsLEUKOCYTESNegativeNormalNEGATIVEAdams County Regional Medical CenterComcorewell health reed city hospital on above:Performed By: #### UA #### [facility] [address] [address] [address] Khari MeadowsNitrite Ql (U)NegativeNormalNEGATIVEAdams County Regional Medical CenterComment on above:Performed By: #### UA #### [facility] [address] [address] [address] Khari MeadowspH (U)6.0 [pH]Normal5-9Ad[facility] Medical CenterComment on above: Performed By: #### UA #### [facility] [address] [place] [address] Dr. Khari MeadowsSPEC GRAVITY1.920Onhaor4.005-<=1.025Prem[facility] Hospital Southment on above:Performed By: #### UA #### [facility] [address] [address] [address] Khari MeadowsUA PROTEINNegativeNormalNEGATIVE/ TRACEThe [facility] Comment on above:Performed By: #### UA #### [facility] [address] [place] [address] Dr. Khari MeadowsUrobilinogen Qn (U)0.2 {Yaneth'U}/dLNormal0.2 - 1.0Prem[facility] Hospital Southment on above:Performed By: #### UA #### [facility] [address] [place] [address] Dr. Khari LunaID PROFILEon 30-12-4229NUEH-HDL RATIO NORMSWVUMedicine Barnesville HospitalComment on above:Result Comment: 3.3 - 4.4 LOW RISK 4.4 - 7.1 AVERAGE RISK 7.1 - 11.0 MODERATE RISK >11.0 HIGH RISKPerformed By: #### LIPID, CMP #### [facility] [address] [place] [address] Dr. Khari Galeasesterol [Mass/Vol]156 mg/dLNormal<=200[facility] Comment on above:Performed By: #### LIPID, CMP #### [facility] [address] [place] [address] Dr. Khari MeadowsCholesterol in HDL [Mass/Vol]45 mg/tUGwahzs12-18Asi [facility] HospitalComcorewell health re[facility] hospital on above:Performed By: #### LIPID, CMP #### [facility] [address] [place] [address] Dr. Khari MeadowsCholesterol in LDL [Mass/Vol]99.6 mg/dLWayne HospitalComcorewell health reed city hospital on above:Performed By: #### LIPID, CMP #### [facility] [address] [place] [address] Dr. Khari MeadowsCholesterol.total/Cholesterol in HDL [Mass ratio]3.5 {ratio} NormalThe [facility] HospitalComment on above:Performed By: #### LIPID, CMP #### [facility] [address] [place] [address] Dr. Khari Barragan NORMAL> or = 60 mg/dl - LOW CARDIOVASCULAR RISK <40 mg/dl - HIGH CARDIOVASCULAR RISKWayne HospitalComment on above:Performed By: #### LIPID, CMP #### [facility] [address] [place] [address] Dr. Khari MeadowsLDL CALC NORMALSEE BELOWWayne HospitalComment on above:Result Comment: <100 mg/dl OPTIMAL 100 - 129 mg/dl NEAR OR ABOVE OPTIMAL 130 - 159 mg/dl BORDERLINE HIGH 160 - 189 mg/dl HIGH >190 mg/dl VERY HIGH Performed By: #### LIPID, CMP #### [facility] [address] [place] [address] Dr. Khari MeadowsTriglyceride [Mass/Vol]57 mg/dLNormal<=150[facility] Comment on above:Performed By: #### LIPID, CMP #### [facility] [address] [place] [address] Dr. Khari MeadowsVLDL CALC11.4 mg/dLNoProMedica Defiance Regional HospitalComment on above: Performed By: #### LIPID, CMP #### [facility] [address] [place] [address] Dr. Khair MeadowsPROF 14(COMP METB)on 83-82-9881Tajpgvz [Mass/Vol]3.6 g/dLNormal 3.4-5.0Ad[facility] Medical CenterComment on above:Performed By: #### LIPID, CMP #### [facility] [address] [place] [address] Dr. Khari MeadowsAlbumin/Globulin [Mass ratio]1.0 {ratio}NormalThe [facility] HospitalComment on above:Performed By: #### LIPID, CMP #### [facility] [address] [place] [address] Dr. Khari Jordan [Catalytic activity/Vol]73 U/JIqjvqa36-207Avc [facility] HospitalComment on above:Performed By: #### LIPID, CMP #### [facility] [address] [place] [address] Dr. Kahri Askew [Catalytic activity/Vol]30 U/BXsdswo80-49Psv [facility] HospitalComment on above:Performed By: #### LIPID, CMP #### [facility] [address] [place] [address] Dr. Khari Zabalaon gap [Moles/Vol]9.4 mmol/LNormalThe [facility] HospitalComment on above:Performed By: #### LIPID, CMP #### [facility] [address] [place] [address] Dr. Khari Trejo [Catalytic activity/Vol]20 U/CSlsytp87-70Ebw [facility] HospitalComment on above:Performed By: #### LIPID, CMP #### [facility] [address] [place] [address] Dr. Khari MeadowsBilirubin [Mass/Vol]0.4 mg/dLNormal0.2-1.0The [facility] Comment on above:Performed By: #### LIPID, CMP #### [facility] [address] [place] [address] Dr. Khari MeadowsCalcium [Mass/Vol]9.1 mg/dLNormal8.5-10.1The [facility] Comment on above:Performed By: #### LIPID, CMP #### [facility] [address] [place] [address] Dr. Khari MeadowsChloride [Moles/Vol]105 mmol/JMgqdao37-450Spa [facility] Comment on above:Performed By: #### LIPID, CMP #### [facility] [address] [place] [address] Dr. Khari MeadowsCO2 [Moles/Vol]29.9 mmol/GFpcixx45.0-32.0The [facility] Comment on above:Performed By: #### LIPID, CMP #### [facility] [address] [place] [address] Dr. Yilan ChangCreatinine [Mass/Vol]1.27 mg/dLNormal0.70-1.30The [facility] HospitalComment on above:Performed By: #### LIPID, CMP #### [facility] [address] [address] [address] Khari JaramilloGFR-AF MALAYSIAN>60Normal>=60The [facility] HospitalComment on above:Performed By: #### LIPID, CMP #### [facility] [address] [address] [address] Khari JaramilloGFR-NON AF ZAMVOPWG30 mL/min/1.64q0Gpvvhfikmr low>=60The [facility] HospitalComment on above:Performed By: #### LIPID, CMP #### [facility] [address] [place] [address] Dr. Khari MeadowsGlobulin (S) [Mass/Vol]3.6 g/dLNormalThe [facility] HospitalComment on above:Performed By: #### LIPID, CMP #### [facility] [address] [place] [address] Dr. Khari MeadowsGlucose [Mass/Vol]112 mg/dLCritically iaow31-207Kol [facility] HospitalComment on above:Performed By: #### LIPID, CMP #### [facility] [address] [place] [address] Dr. Khari MeadowsPotassium [Moles/Vol]5.3 mmol/LCritically high3.5-5.1The [facility] HospitalComment on above:Performed By: #### LIPID, CMP #### [facility] [address] [place] [address] Dr. Khari MeadowsProtein [Mass/Vol]7.2 g/dLNormal6.4-8.2The [facility] Comment on above:Performed By: #### LIPID, CMP #### [facility] [address] [place] [address] Dr. Khari MeadowsSodium [Moles/Vol]139 mmol/WJsthwm491-792Xsw [facility] Comment on above:Performed By: #### LIPID, CMP #### [facility] [address] [place], [place] [address] Dr. Khari Turner nitrogen [Mass/Vol]30.0 mg/dLCritically high7.0-18.0The [facility] HospitalComment on above:Performed By: #### LIPID, CMP #### [facility] [address] [place], [place] [address] Dr. Khari MeadowsUrea nitrogen/Creatinine [Mass ratio]23.6 mg/mgNoalThProtestant HospitalComment on above:Performed By: #### LIPID, CMP #### [facility] [address] [place], [place] [address] Dr. Khari MeadowsXR Ankle Complete Left*on 20-89-3536SQ Ankle Complete Left* CLINICAL HISTORY: pain FINDINGS: No significant malleolar soft tissue swelling is present. No cortical, subchondral fracture or dislocation is seen. Talar dome and talar kuhn are intact. Normal tibiotalar and tibiofibular relationships are present. Bone mineralization is normal for this age. IMPRESSION: Negative ankle. Report reported and signed by RICHARD LARA on 08/17/[address] [place], [place] [address]XR Foot Complete Left*on 84-16-2277OC Foot Complete Left* COMPARISON: None TECHNIQUE: 3 [...] and signed by RICHARD LARA on 08/17/[address] [place] [address] Specialist prostate wo/w conon 89-75-2954EN prostate wo/w con [facility] [place] [address] MRI Report Signed Patient: Agus Ortiz MR#: [id number] 24 : 1950 Acct:[id number] Age/Sex: 71 / M ADM Date: 08/13/22 Loc: MR Room: Type: [facility] CLI Attending Dr: Brian Tapia MD Copies to: [...] Rg Jr., D.OGris08/14/2022 9:33 AM Dictation Location: [address] [address] Transcribed By: [facility] 08/14/22932 Dictated By: King Rg Jr, DO 08/14/22 0927 Signed By: 08/14/22 0933[facility] HospitalCreatinine (Bld) [Mass/Vol] Ordered By: Brian Tapia on 78-22-5382Rmznugidok [Mass/Vol]1.3 mg/dL0.6-1.3 [facility] Medical CenterComment on above:ER/ESD physician is notified/shown all ISTAT results.Critical values may be confirmed by laboratory testing ifdeemed necessary by ER attending doctor.ISTAT XRay CREon 08-13-2022 Creatinine [Mass/Vol]1.3 mg/dLNormal0.6-1.3FKettering Health Miamisburg Comment on above:Result Comment: ER/ESD physician is notified/shown all ISTAT results. Critical values may be confirmed by laboratory testing if deemed necessary by ER attending doctor.Performed By: #### ISCRE #### [address] Point of Care testing ,ISTAT GFR (> 60NoWilson Street HospitalComment on above:Result Comment: GFR estimated reference range: According to KDOQI guidelines, <60 ml/min/1.73m2 is sufficient to diagnose a patient with chronic kidney disease. PERFORMED BY: [place] [address] PATHOLOGIST MECHANICAL INTEGRITY ENGINEER MELVIN DANG M.D.Performed By: #### ISCRE #### [facility] [address] Point of Care testing ,ISTAT GFR (Non- Rf14IijewpGskgrbouhCleveland Clinic Mercy HospitalComment on above:Performed By: #### ISCRE #### [facility] [address] Point of Care testing ,No Panel InformationOrdered By: Brian Tapia on 33-24-9301WRL Estimated GFR > 60[facility] Medical CenterComment on above:GFR estimated reference range: According to KDOQI guidelines, <60 ml/min/1.73m2 is sufficient todiagnose a patient with chronic kidney disease.POC Estimated GFR Non- Hyuq42Shyitcdgi[address] [place], [place] [address]GLYCOHEMOGLOBIN A1Con 24-53-6534XFA RECOMMENDATIONSEE [facility] Osteopathic HospitalComment on above:Result Comment: ADA RECOMMENDED LIMIT 4.0 - 6.0 ADA THERAPEUTIC TARGET < 7.0 ACTION SUGGESTED > 7.0Performed By: #### A1C #### [facility] [address] [address] [address] Khari MeadowsGlucose [Mass/Vol]111 mg/dLWayne HospitalComment on above:Performed By: #### A1C #### [facility] [address] [address] [address] Khari MeadowsHbA1c (Bld) [Mass fraction]5.5 %Normal4.5-6.2Ad[facility] Medical CenterComment on above:Performed By: #### A1C #### [facility] [address] [address] [address] Yilan ChangMICROALBUMIN, RAND URon 82-32-3223rFRQ<1.3Normal<=30.0The [facility] HospitalComment on above:Performed By: #### MALBR #### [facility] [address] [address] [address] Khari OntiverosF CHEM 8 (BAS METB)on 01-62-2091Yeqfs gap [Moles/Vol]10.1 mmol/LNormalThe [facility] HospitalComment on above:Performed By: #### BMP #### [facility] [address] [address] [address] Khari MeadowsCalcium [Mass/Vol]9.2 mg/dLNormal8.5-10.1The [facility] Comment on above:Performed By: #### BMP #### [facility] [address] [address] [address] Khari MeadowsChloride [Moles/Vol]104 mmol/WYvorsv53-132Ibh [facility] Comment on above:Performed By: #### BMP #### [facility] [address] [place] [address] Dr. Khari MeadowsCO2 [Moles/Vol]27.6 mmol/KXalxtx78.0-32.0The [facility] Comment on above:Performed By: #### BMP #### [facility] [address] [address] [address] Khari MeadowsCreatinine [Mass/Vol]1.47 mg/dLCritically high0.70-1.30The [facility] HospitalComment on above:Performed By: #### BMP #### [facility] [address] [place] [address] Dr. Khari JaramilloGFR-AF KIFMNTHL44 mL/min/1.54d4Bnlqntccwc low>=60The [facility] HospitalComment on above:Performed By: #### BMP #### [facility] [address] [address] [address] Khari JaramilloGFR-NON AF XORFRHGR06 mL/min/1.91e4Knmjdtfzxd low>=60The [facility] HospitalComment on above:Performed By: #### BMP #### [facility] [address] [address] [address] Khari MeadowsGlucose [Mass/Vol]105 mg/lPMqrrnz03-347Igs [facility] Comment on above:Performed By: #### BMP #### [facility] [address] [address] [address] Khari MeadowsPotassium [Moles/Vol]3.7 mmol/LNormal3.5-5.1[facility] Comment on above:Performed By: #### BMP #### [facility] [address] [address] [address] Khari MeadowsSodium [Moles/Vol]138 mmol/ESnovfa134-998Kqx [facility] Comment on above:Performed By: #### BMP #### [facility] [address] [address] [address] Khari MeadowsUrea nitrogen [Mass/Vol]34.0 mg/dLCritically high7.0-18.0[facility] Medical CenterComment on above:Performed By: #### BMP #### [facility] [address] [address] [address] Khari MeadowsUrea nitrogen/Creatinine [Mass ratio]23.1 mg/mgNormalThe [facility] HospitalComment on above:Performed By: #### BMP #### [facility] [address] [address] [address] Khari MeadowsSouthside Regional [facility] 72-88-6180WKQPKX HEALTHHNO ID: [id number]: Darell Guevara (Rt): (none)Author Type: TechnicianType: Allied HealthFiled: 10/18/2018 2:01 PMNote Text: Radiology Service Progress NotePATIENT NAME: Agus RayMRN: [id number] OF SERVICE: October 18, 2018TIME: 1:58 PMPATIENT IDENTITY VERIFICATION COMPLETED USING TWO (2) METHODS: Patientconfirmed name verbally and Date of .PATIENT GENDER DATA: M alePATIENT RELEVANT IMPLANT DATA REVIEWED: YesCONTRAST INDUCED NEPHROPATHY RISK FACTORS: Patient age > 60 yearsCREATININE:Creatinine (POCT)Date Value Ref Range Tjxoqh0110/18/2018 1.40 (A) 0.58 - 1.22 mg/dL Final eGFR-All Other Races (POCT)Date Value Ref Range Dqrgtw3410/18/2018 50 mL/min/1.73 m2 Final eGFR- (POCT)Date Value Ref Range Hhmkgu0310/18/2018 >60 mL/min/1.73 m2 Final P.O.C.T. RESULTS: POC done: Yes, See Lab Tab October 18, 2018RADIOLOGIST NOTIFIED?: NoALLERGIES: Reviewed and unchangedCONTRAST ALLERGY: NO.PERIPHERAL IV ACCESS: Ambulatory: IV type: Existing peripheral IVutilized, Site assessment: Clean,Dry and Intact, Site dispositionDiscontinuedRADIOLOGY DEPARTMENT: MR; Exam(s) Completed: Body: ProstateSIGNED BY: Sandip Guevara 2017 1:58 PMNMcLaren [facility] PROSTATE WO/W IVCONon 87-83-7551Ewbwysb mass conc* * *Final Report* * *DATE OF EXAM: Oct 18 2018 2:47PM [facility] 0751 - MRI PROSTATE WO/W IVCON / REASON: elevated PSA R97.20 * * * * Physician Interpretation * * * * EXAMINATION: MRI PELVIS WITHOUT AND WITH CONTRAST (MULTIPARAMETRIC PROSTATE MRI): ...CLINICAL HISTORY: 68-year-old man elevated PSA, being evaluated for prostate cancer.Previous biopsy: NAPSA: 11.65 ng/mL ()Prior therapy: None.TECHNIQUE: Multiparametric MRI of the prostate and pelvis performed christian 3T (Siemens 3T TrioTim) MR system utilizing a torso phased array coil.Sequences obtained:Sagittal, axial and coronal high resolution T2-WI with small xzntm-ld-mbli;Axial diffusion weighted images with multiple B-values and creation of ADC-maps;Dynamic contrast enhanced T1-weighted images through t he prostate were also obtained before, during and after the administration of intravenous gadolinium. Subsequently, larger field of view 3D T1 weighted axial images were obtained through the pelvis.Prostate dimension, volume and pharmacokinetics were obtained using a semi-automated software (5gig).M: MRPro_2Contrast: IV administration of 20 ml of [...] NoneOther Findings: Susceptibility artifact from left hip arthroplasty.IMPRESSION:PI-RADS 2: CLINICALLY SIGNIFICANT PROSTATE CANCER IS UNLIKELY.BENIGN PROSTATIC HYPERTROPHY. Number of targets created for MR/US fusion biopsy:Peripheralzone: 0Transition zone: 0Central zone: 0Targets were numbered in order of level of suspicion for clinically significant prostate cancer (Bronx score 3 + 4 or higher).PI-RADS assessment categories:PI-RADS 1: Clinically significant cancer is highly unlikelyPI-RADS 2: Clinically significant cancer is unlikelyPI-RADS 3: Clinically significant cancer is equivocalPI-RADS 4: Clinically significant cancer is likelyPI-RADS 5: Clinically significant cancer is highly likelyTranscriptionist: WINSTON Transcribe Date/Time: Oct 18 2018 2:56PDictated by : YAN GARZA MDThis examination was interpreted andthe report reviewed and electronically signed by: WESLEY VALERA MD on Oct 18 2018 5:14PM [id number] Hospital NURSING PROGon 28-69-3163Yjkfzky mass concHNO ID: [id number]: Aundrea (Rn) TIMOTHY Sauerervice: RadiologyAuthor Type: Registered NurseType: Nursing Progress NoteFiled: 10/18/2018 12:57 PMNote Text: Radiology Service Progress NotePATIENT NAME: Agus Oneil: [id number] OF SERVICE: October 18, 2018TIME: 12:56 PMPATIENT WEIGHT: 210 LBSPATIENT IDENTITY VERIFICATION COMPLETED USING TWO (2) METHODS: Patientconfirmed name verbally and ID band matches..PATIENT GENDER DATA: MaleCONTRAST INDUCED NEPHROPATHY RISK FACTORS: Patient age >60 yearsCREATININE: No results found for: CREAT, EGFROTH, EGFRAAP.O.C.T. RESULTS: POC done: Yes, See Lab Tab October 18, 2018TREATMENT: No Hydration needed.ALLERGIES: Reviewed and unchangedCONTRAST ALLERGY: NO.IV SITE: Ambulatory: A peripheral IV was started in the Left antecubitalsite with a Angio cath: 22 gauge.diffusicIV SITE APPEARANCE: Clean,Dry and IntactSIGNED BY: Delia Dubon 2017 12:56 [facility] Vital Signs Date TimeVital SignValuePerforming HrboxxksbQaewixfd79-73-1093 11:08-0400Body qpcwgy835.9 cmJaimedonald Latham DO Work Phone: [facility] CenterZiukroyofm28-27-4929 11:08-0400Body mass index (BMI) [Ratio]27.76 kg/v4Pinrskwdonald Latham DO Work Phone: [facility] CenterZppklxeuzu64-02-4363 11:08-0400Body zowkfy55.85 kgJesarathdonald Latham DO Work Phone: [facility] CenterYqwraxvpwl87-74-4243 11:08-0400Heart rate62 /min Zoey Noa SPRINGER Work Phone: [facility] CenterJlmojwrxmi72-96-1853 11:08-0456YoJ3% (BldA) [Mass fraction]98 %Zoey Noa SPRINGER Work Phone: [facility] CenterLrgsdhxcif28-21-2965 08:19-0500Diastolic blood pvczdtup31 mm[Hg]Brian TAPIA [facility]02-14-2025 08:19-0500Mean blood ngewffki926 mm[Hg]Brian TAPIA [facility]02-14-2025 08:19-0500Systolic blood njfmkzui714 mm[Hg]Brian TAPIA [facility]02-14-2025 08:11-0500Blood Pressure LocationPatrick MARVEL [facility]02-14-2025 08:11-0500Diastolic blood soawzvdw68 mm[Hg]Brian TAPIA [facility]02-14-2025 08:11-0500Heart rate66 /minPatricshalonda TAPIA [facility]02-14-2025 08:11-0500Respiratory rate18 /minPatricshalonda TAPIA [facility]02-14-2025 08:11-0500Systolic blood psmofwih620 mm[Hg]Brian TAPIA [facility]11-27-2024 09:50-0500Body xrcjey634.9 cmJemarlo Latham DO Work Phone: [place] [address]Eokamqjkfs34-74-3846 09:50-0500Body mass index (BMI) [Ratio]27.8 kg/z5CuxjpiiZoey Latham DO Work Phone: [place] [address]Fjpojydqdj63-48-3424 09:50-0500Body mljfxu33.99 kgZoey Latham DO Work Phone: [place] [address]Zkozsjzdjg92-54-7246 09:50-0500Diastolic blood crvdwlko93 mm[Hg]Zoey Latham DO Work Phone: [place] [address]Blrcofoxzy07-18-7731 09:50-0500Heart rate74 /min Zoey Latham DO Work Phone: [place] [address]Mdpfxeypws80-96-0452 09:50-9116UoL0% (BldA) [Mass fraction]97 %Zoey Latham DO Work Phone: [place] [address]Zpfdodbauj68-56-0638 09:50-0500Systolic blood bdpiwhaf533 mm[Hg]Zoey Latham DO Work Phone: [facility] CenterGsbykhphqz06-83-2505 08:29-0500Blood Pressure LocationPatrick TAPIA [facility]02-09-2024 08:29-0500Diastolic blood mm[Hg]Brian TAPIA [facility]02-09-2024 08:29-0500Heart rate80 /minPatrick TAPIA [facility]02-09-2024 08:29-0500Respiratory rate16 /minPatrick TAPIA [facility]02-09-2024 08:29-0500Systolic blood mm[Hg]Brian TAPIA [facility]10-07-2022 11:43-0400Blood Pressure LocationPatrick TAPIA [facility]10-07-2022 11:43-0400Diastolic blood uzcomdrx81 mm[Hg]Brian TAPIA [facility]10-07-2022 11:43-0400Heart rate60 /minPatrick TAPIA [facility]10-07-2022 11:43-0400Respiratory rate18 /minPatrick TAPIA [facility]10-07-2022 11:43-0400Systolic blood ovnvwsof444 mm[Hg]Brian TAPIA [facility] Encounters Encounter DateEncounter TypeCare ProviderFacilityStart: 16-05-4309oshhwitiav Brian Dempseycility:EU ueStart: 06-09-2025 End: 31-60-7785vyhvewcekyQhsucnr R WATERSFacility:EU [place]Start: 06-09-2025 End: 48-10-5313Trinxkx encounter procedureBrian TAPIA [facility] start: 06-01-2025 End: 91-29-1223Vpzkwfvuk Result EncounterGeneric External Data ProviderNOMS External Department UnsolicitedStart: 06-01-2025 End: 24-75-0001Gjiargyrr Result EncounterGeneric External Data ProviderNOMS External Department UnsolicitedStart: 06-01-2025 End: 34-93-5393eenhcslfyyVxckwhd R WATERSFacility:EU ueStart: 06-01-2025 End: 28-80-4044Cdnsequ encounter procedureBrian TAPIA [facility] start: 03-22-2025 End: 47-23-5585Hricyt Coco Latham DO Work Phone: [facility] IMStart: 03-22-2025 End: 19-33-9211Cdjifsanabell Latham DO Work Phone: [facility] IMStart: 03-22-2025 End: 91-22-5182fqsfhdkzeoPCUKDCX A GARMANNot AvailableStart: 03-22-2025 End: 87-96-0071Ykjmvd outpatient visit 25 minutesZoey Latham DO Work Phone: [facility] IMComment on above:Essential hypertension (CMS/HCC) (Primary Dx); Medicare annual wellness visit, subsequent; Advance care planning; Stage 3a chronic kidney disease (HCC) (CMS/HCC); Mixed hyperlipidemia (CMS/HCC); Benign prostatic hyperplasia with lower urinary tract symptoms, symptom details unspecified; Elevated PSAStart: 03-22-2025 End: 69-14-7240Oyaalks encounter procedureZoey Latham DO Work Phone: [facility] Work Phone: Start: 03-16-2025 End: 00-89-9966Tkkmapqiq Result EncounterZoey Latham DO Work Phone: noms External Department UnsolicitedStart: 03-16-2025 End: 59-72-5555Txuajviwb Result EncounterZoey Latham DO Work Phone: noms External Department UnsolicitedStart: 12-09-2024 End: 79-70-9791lrvyzdytnqWwoungk R WATERSFacility:EU BellevueStart: 12-09-2024 End: 92-55-7553Egzoiqo encounter procedureBrian TAPIA [facility] start: 11-25-2024 End: 43-35-0985Vobmsjxna Result EncounterGeneric External Data ProviderNOMS External Department UnsolicitedStart: 11-25-2024 End: 18-80-3160Hetmleibl Result EncounterGeneric External Data ProviderNOAR External Department UnsolicitedStart: 09-21-2024 End: 61-16-0629Wiptrc flowsUriel Latham DO Work Phone: noms [facility] IMStart: 09-21-2024 End: 36-30-0806Lsmmkb flowsUriel Latham DO Work Phone: noms [facility] IMStart: 09-21-2024 End: 31-53-5204Woseeu outpatient visit 40 minutesZoey Latham DO Work Phone: noms [facility] IMComment on above:Essential hypertension (CMS/HCC) (Primary Dx); Stage 3a chronic kidney disease (HCC) (CMS/HCC); Mixed hyperlipidemia (CMS/HCC); Primary osteoarthritis of both knees; Benign prostatic hyperplasia with lower urinary tract symptoms, symptom details unspecified; Elevated PSA; History of left hip replacementStart: 09-21-2024 End: 08-35-3845hrjbxrsrwdTCEMWIY A GARMANNot AvailableStart: 09-15-2024 End: 70-39-5552Eqidfwxuv Result EncounterMicmirta Shearer [employer] Work Phone: noms External Department UnsolicitedStart: 09-15-2024 End: 34-98-2750Hknwhctyq Result EncounterMicmirta Shearer [employer] Work Phone: noms External Department UnsolicitedStart: 12-04-2023 End: 29-67-6117Pjdvwpc encounter procedureBrian Cartagena TAPIA [facility] start: 77-22-3218Dcihriwnx Result EncounterGeneric External Data ProviderNOMS External Department UnsolicitedStart: 11-27-2023 Clinisync Result EncounterGeneric External Data ProviderNOMS External Department UnsolicitedStart: 03-03-2023 End: 00-24-8700xqkejjftwfUBJanes Gonzalezcility:S2Wletn: 12-01-2022 End: 45-18-3547Dqhasqg encounter procedurePajessenia Cartagena TAPIA [facility] start: 11-11-2022 End: 84-99-7571Tcyrnpz encounter procedureBrian Cartagena TAPIA [facility] Start: 11-04-2022 End: 78-02-9415Ueo-admission assessmentPajessenia Cartagena TAPIA [facility] Start: 09-05-2022 End: 88-04-1668peekcmzewkFUJanes Rajanity:Y5Rvdkj: 08-13-2022 End: 35-79-9108rhkrsdxrniQynrene GarmanFacility:[facility] Healthtart: 08-13-2022 End: 71-03-4758vywbrionytVY Jeffrey Garman Work Phone: [facility] Work Phone: Start: 08-13-2022 End: 68-85-7060Pmggpty encounter procedureDO Zoey Latham Work Phone: [facility] Main CampusStart: 08-01-2022 End: 78-16-2601Qozrsrv encounter procedureBrian TAPIA [facility] start: 07-03-2022 End: 47-23-9683dhnmmrrrlhIP BRIAN TAPIA .Facility:H3Phuop: 05-06-2022 End: 55-17-1381xabnhjrkjoWT JEFFREY GARMANFacility:Q2Dkffg: 29-36-7286Vwdbwmt encounter procedureRos[facility] Procedures DateProcedureProcedure DetailPerforming ClinicianStart: 62-31-0311MMYK PSA, DIAGNOSTICGeneric External Data ProviderStart: 01-80-2659KBF MICROALB CREAT RATIO Genesis Latham DO Work Phone: Start: 34-74-3444LPZX PSA, DIAGNOSTICGeneric External Data ProviderStart: 76-68-6619KRB CBC WITH AUTO DIFFMichele Juan Shearer [employer] Work Phone: Start: 07-13-2852EUWO PSA, DIAGNOSTICGeneric External Data ProviderStart: 14-86-0540Zvtzbqgtmay biopsy of prostate using ultrasound guidanceBrian TAPIA Start: 56-23-1252BYD screeningDR ZOEY LATHAMComment on above:Performed By: #### PSAD #### [facility] [address] [place] [address] Dr. Khari MeadowsStart: 35-43-4187Utbkgbfcwox biopsy of prostate using ultrasound guidanceBrian TAPIA Start: 98-04-8058Ahynicnrjdukv water vapor ablation of prostateBrian TAPIA Start: 01-59-9908Bzevisqfdcghkml guided transrectal cryoablation of prostateBrian TAPIA Comment on above:TRUS/BX * 09/09/2011Jaw and temporomandibular joint operationsBrian TAPIA Prosthetic arthroplasty of the [place] TAPIA Comment on above:Left side Plan of Treatment DateCare ActivityDetailAuthorStart: 44-33-4226Kesipcmej for malignant neoplasm of colonNOAR HealthcareStart: 05-28-2026Medicare Annual Wellness (AWV)Medicare Annual Wellness (AWV)[facility] HealthcareStart: 09-06-2025 End: 74-45-3993Swlccnd encounter zvovqmsvz07/12/2025 10:45 AM EST [facility] [address] [place] [address] [facility] MedicineStart: 62-59-0932Bvjwkhocz vaccinationInfluenza Vaccine (#1)[facility] HealthcareStart: 03-24-2025 End: 89-66-9146Xylgiwr encounter /30/2025 10:30 AM EDT Office Visit NOMS [facility] [address] [place] [address] Zoey Latham, DO [address] [place] [address] LITA [facility] IMStart: 03-22-2025 End: 00-75-5743Mcmvnlv encounter emsbwknyn49/28/2025 11:00 AM EDT Office Visit NOMS [facility] [address] [place] [address] Zoey Latham, DO [address] [place] [address] [facility] IMStart: 53-90-3405Lutanjxkm for malignant neoplasm of colonNOAR HealthcareStart: 09-21-2024 End: 73-19-3005Wilmjen encounter procedureNOST. [facility] IMComment on above:Arrived Start: 03-16-2024 End: 25-35-6134Tncxswa encounter bibpigver25/22/2024 9:15 AM EDT Office Visit [facility] [address] [place] [address] Zoey Latham, DO [address] [place] [address] [facility] IMStart: 05-18-2024Medicare Annual Wellness (AWV) Medicare Annual Wellness (AWV)[facility] HealthcareStart: 11-18-0780JL Prostate [facility]ertart: 12-05-9857LP prostate wo/w conMR prostate wo/w [facility] Daytontart: 08-17-2020 Pneumococcal Vaccine: 65+ Years (2 - PCV)Pneumococcal Vaccine: 65+ Years (2 - PCV)[facility] HealthcareStart: 93-51-3522Qfwxrfvie for malignant neoplasm of colon [facility] Immunizations Immunization DateImmunizationNotesCare VrowoddhXxsinzrd54-80-0548anqnnrtgx virus vaccine, unspecified formulationSilentium [facility]09-22-2024influenza, high dose seasonal, preservative-freeZoey Latham DO Work Phone: [facility] CenterIcwdwnqnxn13-47-9412Qbyykcunjpko Conjugate PCV 20 Wisam Shearer [employer] Work Phone: NOK[facility] Medical CenterGbueqhtasa59-07-7016iihqhsobc virus vaccine, unspecified formulationSilentium [facility]10-07-2023Influenza, Seasonal, Quadrivalent, AdjuvantedGeneric [facility] HealthSbzxoimfol48-55-6235QYCB-QJE-7 (COVID-19) vaccine, mRNA, spike protein, LNP, PF, prema-sucrose, 30 mcg/0.3 mLGeneric [facility]10-16-2022 influenza virus vaccine, unspecified formulationSilentium [facility]10-16-2022Influenza, High-dose Seasonal, Quadrivalent, Preservative Free Generic [place] [address]Xvlgftczua96-91-9249QDKP-BVT-8 (COVID-19) vaccine, mRNA, spike protein, LNP, bivalent, preservative free, 30 mcg/0.3 mLdose, prema-sucrose formulationOhiohealth Pickerington Methodist Hospitalric [place] [address]Cgdejcjima88-43-8524nsgivhyzy virus vaccine, unspecified formulationSilentium [facility] [place] [address]-08-2021Influenza, High-dose Seasonal, Quadrivalent, Preservative Free Generic [facility] HospitalPixufirabz36-69-2648POGN-YrH-3 (COVID-19) mRNA BNT-162b2 Zvooq [facility] on above:Result Comment: 2023-12-04: FWR5479-18-1869VJIP-NrY-4 (COVID-19) Ad26 vaccine, recombinantSilentium [facility] on above:Result Comment: unable to give exact -51-2300 SARS-CoV-2 (COVID-19) mRNA BNT-162b2 Zvooq [facility] on above:Result Comment: 2023-12-04: BOE1240-68-3510USWU-WaL-7 (COVID-19) mRNA BNT-162b2 Zvooq [facility] CenterComment on above:Result Comment: 2023-12-04: OLP0815-91-0914rqmmhndeb virus vaccine, unspecified formulationSilentium [facility]09-29-2020Influenza, Seasonal, Quadrivalent, AdjuvantedGeneric Provider [facility] CenterFvubvpebmh92-45-1320kxsswutzs virus vaccine, unspecified formulationSilentium [facility]10-23-2019influenza, high dose seasonal, preservative-freeMichele Manfred [employer] Work Phone: [facility] CenterLhfhbcarcp53-03-0108aqplmkcnwmio polysaccharide vaccine, 23 valentGeneric [facility] HospitalHlkcgqhldc75-21-6319jhwamf vaccine recombinantGeneric [facility] HospitalWrmygoluei05-26-0039pqehklkhy virus vaccine, unspecified formulationSilentium [facility]09-14-2018influenza, high dose seasonal, preservative-freeMichele Manfred [employer] Work Phone: [facility] CenterDecimlucgd03-31-0354sknmws vaccine recombinant Generic [facility] HospitalLnyujrebuw26-18-1777horgwcdjb virus vaccine, unspecified formulationSilentium [facility]09-29-2017influenza, high dose seasonal, preservative-freeMichele Manfred [employer] Work Phone: [facility] CenterLpkjvjahay70-26-8943cgsawj vaccine, liveGeneric [facility] Payers DatePayer CategoryPayerPolicy [id number] Health Insurance [id number]-[id number] [id number] [id number] [id number] 1960Medicare [id number] Health [id number] 2.16.840.1.200250.3.57[id number] 2.16.840.1.527103.3.57[id number] 2.16.840.1.055867.3.57[id number] 2.16.840.1.677008.3.57[id number] 2.16.840.1.757860.3.57[id number] 2.16.840.1.739892.3.57[id number] 2.16.840.1.026836.3.57[id number] 2.16.840.1.731680.3.57[id number] 2.16840.1.066101.3.57[id number] 2.16840.1.091261.3.5[id number] Life [id number] 2.16.840.1.683739.3.579.2.531 Social History DateTypeDetailFacilityStart: 08-01-2022 End: 93-64-9044Cdtjopy smoking statusEx-smoker (finding)[facility] CenterComcorewell health [facility] on above:Quit 40 + years agoStart: 09-23-2023 End: 16-46-9066Jal [facility]1983eExec[facility] start: 24-49-6298Jsk [facility] At [facility] Hospitaltart: 14-73-3810Kkortmf smoking status NHISNever smoked tobaccoNOMS HealthcareStart: 22-57-4656Osorvfd use and exposureSmokeless tobacco non-userNOMS HealthcareStart: 09-23-2023 End: 43-89-9061Azsfahp intakeLifetime non-drinker (finding)[facility] HealthcareStart: 09-23-2023 End: 45-12-8029Urtptbf of Social functionNOMS HealthcareStart: 54-11-9491Ikbakft Commentcaffeine: 1-2 cups per day hot chocolateNOMS HealthcareStart: 1950 Sex Assigned At BirthNot on [facility] HealthcareTobacco smoking statusNever [facility] CenterComment on above:Quit 40 + years agoSexual OrientationExecutive [facility]rology of [facility] start: 32-67-3739FqsQyss (finding)[facility] Functional Status MfmjCwygvmbgooCltcnpEnphxhzt95-31-5801Xnqbtpw Health Questionnaire 2 item (PHQ- 2) [Reported][facility] CenterNfstukjtzt27-77-8502Blbzxfmpfu StatusN/AExec[facility] of [facility]02-09-2024Functional StatusN/A[facility]10-07-2022Functional StatusN/A [facility] Clinical Notes 08-01-2022 to 06-09-2025 Note Date & BbqpZrjySprghdpi92-55-1396 Hospital Discharge instructions Patient Education 06/09/2025 08:32:18 Benign Prostatic Hyperplasia Benign Prostatic Hyperplasia Benign prostatic hyperplasia (BPH) is an enlarged prostate gland that is caused by the normal agingprocess. The prostate may get bigger as a man gets older. The condition is not caused by cancer. The prostate is a walnut-sized gland that is involved in the production of semen. It is located in front of the rectum and below the bladder. The bladder stores urine. The urethra carries stored urine ou t of the body. An enlarged prostate can press on the urethra. This can make it harder to pass urine. The buildup of urine in the bladder can cause infection. Back pressure and infection may progress to bladder damage and kidney (renal) failure. What are the causes? This condition is part of the normal aging process. However, not all men develop problems from thiscondition. If the prostate enlarges away from the [...] urethra. Follow these instructions at home: Take ywps-mxv-icgkbxq and prescription medicines only as told by [...] provider. Document Revised: 04/30/2022 Document Reviewed: 04/30/2022 [employer]ality Patient Education 2023 Member Desk. Follow Up Care 12/09/2024 09:10:09 With:MARVEL ELLIS, Brian Cartagena, URL Address: [address] [place], [place] [address]- When: Unknown [facility] 08-15-2025 NotePatient Education Urology Benign Prostatic Hyperplasia Benign prostatic hyperplasia (BPH) is an enlarged prostate gland that is caused by the normal agingprocess. The prostate may get bigger as a man gets older. The condition is not caused by cancer. The prostate is a walnut-sized gland that is involved in the production of semen. It is located in front of the rectum and below the bladder. The bladder stores urine. The urethra carries stored urine ou t of the body. An enlarged prostate can press on the urethra. This can make it harder to pass urine. The buildup of urine in the bladder can cause infection. Back pressure and infection may progress to bladder damage and kidney (renal) failure. What are the causes? This condition is part of the normal aging process. However, not all men develop problems from thiscondition. If the prostate enlarges away from the [...] this procedure, a tool is inserted through theopening at the tip of the penis (urethra). [...] procedure uses radio frequencies to destroy and removea small amount of prostate tissue. ? Interstitial laser coagulation (ILC). This procedure uses a laser to destroy and remove a small amount of prostate tissue. ? Transurethral electrovaporization (TUVP). This procedure uses electrodes to destroy and remove a small amount of prostate tissue. ? Prostatic urethral lift. This procedure inserts an implant to push the lobes of the prostate awayfrom the urethra. Follow these instructions at home: ??? Take jbtv-wsa-bvxpqtc and prescription medicines only as told by [...] symptoms do not get (more content not included)...[facility]02-14-2025 Hospital Discharge instructions Patient Education 12/09/2024 09:02:34 Benign Prostatic Hyperplasia Benign Prostatic Hyperplasia Benign prostatic hyperplasia (BPH) is an enlarged prostate gland that is caused by the normal agingprocess. The prostate may get bigger as a man gets older. The condition is not caused by cancer. The prostate is a walnut-sized gland that is involved in the production of semen. It is located in front of the rectum and below the bladder. The bladder stores urine. The urethra carries stored urine ou t of the body. An enlarged prostate can press on the urethra. This can make it harder to pass urine. The buildup of urine in the bladder can cause infection. Back pressure and infection may progress to bladder damage and kidney (renal) failure. What are the causes? This condition is part of the normal aging process. However, not all men develop problems from thiscondition. If the prostate enlarges away from the [...] urethra. Follow these instructions at home: Take nugu-tgk-fngwins and prescription medicines only as told by [...] provider. Document Revised: 04/30/2022 Document Reviewed: 04/30/2022 [employer]onality Patient Education 2023 Member Desk. Follow Up Care 12/04/2023 09:27:51 With:MARVEL ELLIS, Brian Cartagena, URL Address: [address] [place], [place] [address]- When: Unknown [facility] 02-14-2025 NotePatient Education Urology Benign Prostatic Hyperplasia Benign prostatic hyperplasia (BPH) is an enlarged prostate gland that is caused by the normal agingprocess. The prostate may get bigger as a man gets older. The condition is not caused by cancer. The prostate is a walnut-sized gland that is involved in the production of semen. It is located in front of the rectum and below the bladder. The bladder stores urine. The urethra carries stored urine ou t of the body. An enlarged prostate can press on the urethra. This can make it harder to pass urine. The buildup of urine in the bladder can cause infection. Back pressure and infection may progress to bladder damage and kidney (renal) failure. What are the causes? This condition is part of the normal aging process. However, not all men develop problems from thiscondition. If the prostate enlarges away from the [...] this procedure, a tool is inserted through theopening at the tip of the penis (urethra). [...] procedure uses radio frequencies to destroy and removea small amount of prostate tissue. ? Interstitial laser coagulation (ILC). This procedure uses a laser to destroy and remove a small amount of prostate tissue. ? Transurethral electrovaporization (TUVP). This procedure uses electrodes to destroy and remove a small amount of prostate tissue. ? Prostatic urethral lift. This procedure inserts an implant to push the lobes of the prostate awayfrom the urethra. Follow these instructions at home: ??? Take xokh-vls-bmfwzxt and prescription medicines only as told by [...] symptoms do not get (more content not included)...[facility]11-27-2024 Evaluation note* Diagnosis Essential hypertension (CMS/HCC)- Primary Unspecified essential hypertension Stage 3a chronic kidney disease (HCC) (CMS/HCC) Mixed hyperlipidemia (CMS/HCC) Mixed hyperlipidemia Primary osteoarthritis of both knees Benign prostatic hyperplasia with lower urinary tract symptoms, symptom details unspecified Elevated PSA Elevated prostate specific antigen (PSA) History of left hip replacement documented in this encounter [facility] CenterZykotxllqq15-47-8105 Hospital Discharge instructions Patient Education 12/04/2023 09:18:08 [...] treatment? Where to find more information [employer]: www.cancer.org [employer]: www.auanet.org Contact a health care [...] provider. Document Revised: 04/07/2022 Document Reviewed: 04/07/2022 Fonality Patient Education 2022 Member Desk. Follow Up Care 12/01/2022 12:39:52 With:MARVEL ELLIS, Brian Cartagena, URL Address: [facility] [address] [place] [phone] When:Within 1 Year(s) Comments:w/ PSA [facility] [place] 02-06-2023 Hospital Discharge instructions Patient Education [...] have oneof these risk factors: ?Being of -[place] descent. ?Having a family history of prostate [...] you: Are older than age 55. Are -[place]ian. Have a father, brother, or uncle who [...] 07/23/2018 Document Revised: 09/24/2018 Document Reviewed: 07/23/2018 Fonality Patient Education 2020 Member Desk. Follow Up Care 10/29/2022 15:01:27 With:MARVEL ELLIS, Brian Cartgaena, URL Address: [facility] [address] [place] [place] [address] [phone] When:12/01/2023 Comments:PSA [facility] 01-17-2023 Hospital Discharge instructions Patient Education 11/11/2022 [...] for your post-operative appointment in 1-2 weeks [phone] or [phone] Follow Up Care 10/29/2022 14:59:58 With:Brian TAPIA Address: [facility] [address] [place] [address]- Business (1) When:11/25/2022 10:30:48 [facility]10-07-2022 Hospital Discharge instructions Patient Education 08/01/2022 12:24:45 [...] have oneof these risk factors: ?Being of -[place] descent. ?Having a family history of prostate [...] you: Are older than age 55. Are -[place]ian. Have a father, brother, or uncle who [...] 07/23/2018 Document Revised: 09/24/2018 Document Reviewed: 07/23/2018 [employer]onality Patient Education 2020 Member Desk. Follow Up Care 06/28/2021 10:33:47 With:Brian TAPIA MD, URL Address: [address] [place] [address]- When: Unknown [facility] evaluation + Plan note No data available for this section [facility] evaluation + Plan note Future Appointments Appointment Date:12/01/2022 10:45:00 AM Scheduled Provider:Brian TAPIA MD Location:[facility] Appointment Type:URO Office Visit Diagnostic Tests Pending * Prostate Histology ([facility]) 11/11/22 * Prostate Hist[facility] ([facility]) [facility]11[facility] Future Appointments Appointment Date:12/01/2022 10:45:00 AM Scheduled Provider:Brian TAPIA MD Location:[facility] Appointment Type:URO [facility] Future Appointments Appointment Date:12/04/2023 08:30:00 AM Scheduled Provider:Brian TAPIA MD Location:[facility] Appointment Type:URO Office Visit Diagnostic Tests Pending * PSA Total 12/01/22 [facility] evaluation + Plan note Future Appointments Appointment Date:12/09/2024 08:00:00 AM Scheduled Provider:Brian TAPIA MD Location:[facility] Appointment Type:URO Office Visit Diagnostic Tests Pending * PSA Total 12/04/23 [facility] evaluation + Plan note Future Appointments Appointment Date:06/02/2025 08:00:00 AM Scheduled Provider: Location:[facility] Appointment Type:URO Nurse Visit Appointment Date:06/09/2025 08:45:00 AM Scheduled Provider:Brian TAPIA MD Location:[facility] Appointment Type:URO Office Visit Diagnostic Tests Pending * PSA Total 04/25/25 [facility] evaluation + Plan note Future Appointments Appointment Date:06/09/2025 08:45:00 AM Scheduled Provider:Brian TAPIA MD Location:[facility] Appointment Type:URO Office Visit [facility] evaluation + Plan note Future Appointments Appointment Date:06/08/2026 08:45:00 AM Scheduled Provider:Brian TAPIA MD Location:[facility] Appointment Type:URO Office Visit Diagnostic Tests Pending * PSA Total 04/25/26 [facility] Evaluation noteNo assessment information available [facility] Work Phone: Evaluation note* Diagnosis Essential hypertension ([facility]/HCC)- Primary Unspecified essential hypertension Medicare annual wellness visit, subsequent Advance care planning Other specified counseling Stage 3a chronic kidney disease (HCC) (CMS/HCC) Mixed hyperlipidemia (CMS/HCC) Mixed hyperlipidemia Benign prostatic hyperplasia with lower urinary tract symptoms, symptom details unspecified Elevated PSA Elevated prostate specific antigen (PSA) documented in this encounter [facility] HealthcareHospital Discharge instructions No data available for this section [facility] [facility] No data available for this section [facility] Summary Purpose Family History No Family History Records FoundNo Family History Records FoundNo Family History Records FoundNo Family History Records Found No data available for this section No data available for this section No Family History Records Found No data available for this section No data available for this section No Family History Records Found Advance Directives No Advanced Directives Records Found Advance Directive Response Recorded Date/ Time Advance Directives No August 13, 2022 1:04pm Date ActivatedDate InactivatedComments03/16/2024 9:57 AM Chief Complaint and Reason for Visit Chief Complaint Elevated PSA Additional Source Comments (unrecognized sect ion and content) No Status Records FoundNo Status Records FoundNo Status Records FoundNo Status Records FoundNo Status Records FoundNo Status Records Found INFORMATION SOURCE (unrecogn ized section and content) DATE CREATED AUTHOR 10/20/2018 [facility] DATE CREATED AUTHOR AUTHOR'S ORGANIZ ATION 08/18/2022 [facility] DATE CREATED AUTHOR AUTHOR'S ORGANIZ ATION 08/19/2022 [facility] [employer] DATE CREATED AUTHOR AUTHOR'S ORGANIZ ATION 03/08/2023 [facility] DATE CREATED AUTHOR AUTHOR'S ORGANIZ ATION 03/25/2025 [facility] DATE CREATED AUTHOR AUTHOR'S ORGANIZ ATION 06/11/2025 [facility] Patient Care team informatio n (unrecognized section and content) Team Status: Inactive Member Role Status Dates Brian Tapia MD Attending Provider Active Michelle Gonzalez Care ProviderActive Team Status: Active Member Role Status Dates Zoey Latham DO Primary Care Provider Active Team MemberRelationshipSpecialtyStart DateEnd Date Zoey Latham DO [address] [place] [address] PCP - ACO [facility]03/19/23 Zoey Latham DO [address] [place] [address] PCP - GeneralInternal [facility]03/03/23Team MemberRelationshipSpecialtyStart Date End Date Zoey Latham DO [address] [place] [address] PCP - O [facility]03/19/23 Zoey Latham DO [address] [place] [address] PCP - [facility]03/03/23Team MemberRelationshipSpecialtyStart Date End Date Zoey Latham DO [address] [place] [address] PCP - ACO [facility]03/19/23 Zoey Latham DO [address] [place] [address] [facility] - [facility]Team MemberRelationshipSpecialtyStart Date End Date Zoey Latham DO [address] [place] [address] PCP - ACO [facility]03/19/23 Zoey Latham DO [address] [place] [address] PCP - GeneralInternal Medicine03/03/23Team MemberRelationshipSpecialtyStart Date End Date Zoey Latham DO [address] [place] [address] PCP - ACO [facility]03/19/23 Zoey Latham DO [address] [place] [address] PCP - GeneralInternal Medicine03/03/23Te MemberRelationshipSpecialtyStart Date End Date Zoey Latham DO [address] [place] [address] PCP - [facility]CO [facility]03/19/23 Zoey Latham DO [address] [place] [address] PCP - GeneralInternal Medicine03/03/23Te MemberRelationshipSpecialtyStart Date End Date Zoey Latham DO [address] [place] [address] PCP - [facility]CO [facility]03/19/23 Zoey Latham DO [address] [place] [address] PCP - GeneralInternal Medicine03/03/23 Goals (unrecognized section and content) Goals may be documented in a n alternate section Reason for Visit (unrecogniz ed section and content) ReasonComments6 Month Follow-up of Chronic ConditionsPt is being seen today for management of chronic conditions. Pt had lab work done in preparations for todays visit, results and recommendations will be reviewed with them.Reason CommentsMedicare Annual Wellness Visit SubsequentPt is being seen today for his annual MWV and managment of his chronic conditions. Pt had lab work done [...] BE BASED ON THE PRIMARY CLINICAL RECORDS. [employer] provides no warranty or guarantee of the accuracy or completeness of information in this document.
--- OUTSIDE RECORDS SUMMARY | 2025-08-30 06:40 | XMS_ITS | Clinical Summary ---
Author Organization [facility] Address [address] [place] [id number] Care Team Providers Care Roll Filler Name Role Phone Unavailable Primary Care Provider Unavailabl e Social History Tobacco UseTypesPacks/DayYears UsedDateSmoking Tobacco: Never AssessedSex and Gender InformationValueDate RecordedSex Assigned at BirthNot on fileLegal Sex Male09/26/2012 8:56 AM ESTGender IdentityNot on fileSexual OrientationNot on file Plan of Treatment Not on file Insurance
--- OUTSIDE RECORDS SUMMARY | 2025-08-30 06:40 | XMS_ITS | Encounter Summary ---
Author Organization [facility] Address [address] [place] [address] Care Team Providers Care Longitudinal Float Operator Name Role Phone Erik Bains Carl DO Unavailable [phone] Dirk Najera MD Primary Care Provider [phone] Encounter Details DateTypeDepartmentCare Team (Latest Contact Info)Kiusdsbtvat65/04/2025Orders Only [facility] [address] [facility] [address] [place] [address] Mary Buck LPN Essential hypertension; Stage 3a chronic kidney disease (CMS-HCC); Mixed hyperlipidemia Social History Tobacco UseTypesPacks/DayYears UsedDateSmoking Tobacco: NeverSmokeless Tobacco: NeverAlcohol UseStandard Drinks/WeekCommentsNever0 (1 standard drink = 0.6 oz pure alcohol)caffeine: 1-2 cups per day hot chocolatePHQ-2AnswerDate Recorded Patient Health Questionnaire-2 [id number] and Gender InformationValue Date RecordedSex Assigned at BirthNot on fileLegal UnvPbbv7901/07/2023 7:07 PM EDTGender IdentityNot on fileSexual OrientationNot on filedocumented as of this encounter Plan of Treatment DateTypeDepartmentCare Team (Latest Contact Info)Vznjvlfjrzb84/12/2025 10:45 AM ESTOffice Visit [facility] [address] [facility] [address] [place] [address] NameTypePriorityAssociated DiagnosesOrder ScheduleComprehensive metabolic panel LabRoutine Essential hypertension Stage 3a chronic kidney disease (CMS-HCC) Expected: 08/29/2025, Expires: 08/29/2026Lipid panelLabRoutine Mixed hyperlipidemia Expected: 08/29/2025, Expires: 08/29/2026documented as of this encounter Visit Diagnoses Diagnosis Essential hypertension Unspecified essential hypertension Stage 3a chronic kidney disease ([facility]-HCC) Mixed hyperlipidemia documented in this encounter Care Teams Team MemberRelationshipSpecialtyStart DateEnd Date Erik Bains DO [address] [place] [address] PCP - [facility]03/19/23 Dirk Najera MD [address] [place] [address] PCP - GeneralInternal Medicine07/20/25documented as of this encounter
[2025-08-30 08:28] LABS: Alanine Aminotransferase 29 U/L (16-63); Albumin Globulin Ratio 0.9; Albumin Level 3.4 g/dL (3.4-5.0); Alkaline Phosphatase 100 U/L (46-116); Anion Gap 14.7; Aspartate Amino Transferase 22 U/L (15-37); Blood Urea Nitrogen 25.0 mg/dL (7.0-18.0); Calcium 8.9 mg/dL (8.5-10.1); Carbon Dioxide 24.3 mmol/L (21.0-32.0); Chloride 107 mmol/L (98-107); Cholesterol 163 mg/dL (<=200); Estimated GFR (African America >60 (>=60 mL/min/1.73m^2); Estimated GFR (Non-African Ame >60 (>=60 mL/min/1.73m^2); Globulin 3.6 g/dL; Glucose 99 mg/dL (74-106); HDL Cholesterol 44 mg/dL (40-60); Potassium 4.0 mmol/L (3.5-5.1); Sodium 142 mmol/L (136-145); Total Protein 7.0 g/dL (6.4-8.2); Triglycerides 73 mg/dL (<=150); VLDL CHOLESTEROL 14.6 mg/dL
== END 2025-08-30 06:36 | disposition home or self-care (01) ==
LOC: LAB 06:38
PROVIDERS: PCP Internal Medicine; Visit Provider Internal Medicine
DX: E78.2 Mixed hyperlipidemia (principal); N18.31 Chronic kidney disease, stage 3a; I12.9 Hypertensive chronic kidney disease with stage 1 through stage 4 chronic kidney disease, or unspecified chronic kidney disease
CPT/HCPCS: 36415; 80053; 80061